=== PATIENT | female | born 1980 | race Caucasian/White ===

== ENCOUNTER 2017-07-11 11:52 | Emergency (ER) | payer MEDICARE, MEDICAID ==
[~2017-07-11] VITALS: Ht 165.1 cm; Wt 122.2 kg
[~2017-07-11 11:52] MED LIST: DIVA500T7 PO; LAMO200T2 PO; LIT300C PO; LORA-269 PO; ONDA4TAB12 PO; QUET400T12 PO; ZOLP10TA PO
[2017-07-11 13:50] LABS: CLARITY,URINE SLIGHTLY CLOUDY (Clear); COLOR,URINE YELLOW (Yellow); GLUCOSE, URINE NEGATIVE (Neg); KETONES,URINE NEGATIVE (Neg); LEUKOCYTE ESTERASE ,URINE NEGATIVE (Neg); NITRITES, URINE NEGATIVE (Neg); OCCULT BLOOD,URINE NEGATIVE (Neg); PH,URINE 7.5 (4.8-8.0); PROTEIN,URINE 30 mg/dl (Neg); UA COLLECTION TYPE NON-SPECIFIED; UROBILINOGEN,URINE 0.2 E.U/dL (0.2-1.0)
[2017-07-11 13:52] LABS: URINE HCG NEGATIVE (NEG)
[2017-07-11 13:59] LABS: BACTERIA,URINE 2+ /HPF (Neg); MUCUS STRANDS MODERATE /LPF (Neg); SQUAMOUS EPITHELIAL CELL,UR MANY /LPF (FEW)
[2017-07-11 14:00] LABS: RBC,URINE 0-2 /HPF (0-2); RENAL CELLS, URINE FEW /HPF; TRANSITIONAL EPI CELLS,URINE FEW /HPF; WBC,URINE 0-4 /HPF (0-4)
[2017-07-11 15:02] VITALS: BP 135/65
== END 2017-07-11 15:04 | disposition home or self-care (01) ==
LOC: ER 11:54
DX: J06.9 Acute upper respiratory infection, unspecified (principal); G89.29 Other chronic pain; F41.9 Anxiety disorder, unspecified; F32.9 Major depressive disorder, single episode, unspecified; F20.9 Schizophrenia, unspecified; Z91.018 Allergy to other foods; Z88.0 Allergy status to penicillin; Z91.041 Radiographic dye allergy status; Z88.8 Allergy status to other drugs, medicaments and biological substances; Z88.5 Allergy status to narcotic agent; Z79.899 Other long term (current) drug therapy; Z86.73 Personal history of transient ischemic attack (TIA), and cerebral infarction without residual deficits; Z87.442 Personal history of urinary calculi; Z98.62 Peripheral vascular angioplasty status; Z96.89 Presence of other specified functional implants
CPT/HCPCS: 81001; 81025; 99284

== ENCOUNTER 2017-09-23 18:43 | Emergency (ER) | payer MEDICARE, MEDICAID ==
[~2017-09-23] VITALS: Ht 170.2 cm; Wt 124.0 kg
[2017-09-23] MEDS ORDERED: LIDOcaine 5% patch TP STA (20:23)
[2017-09-23] MEDS ORDERED: orphenadrine citrate 60mg/2ml inj. IM ONE (20:25)
[2017-09-23] MEDS ORDERED: HYDROcodone/acetaminophen 10/325mg tab PO ONE (20:25)
[2017-09-23] MEDS ORDERED: ORPH100T2 PO (20:30)
[2017-09-23] MEDS ORDERED: DICL100G15 TOP (20:30)
[2017-09-23] MEDS ORDERED: LIDO700A32 TOP (20:30)
[2017-09-23 21:07] VITALS: BP 128/94
== END 2017-09-23 21:09 | disposition home or self-care (01) ==
LOC: ER 18:43
DX: M25.551 Pain in right hip (principal); M54.31 Sciatica, right side; G89.4 Chronic pain syndrome; Z56.0 Unemployment, unspecified; Z88.0 Allergy status to penicillin; Z79.899 Other long term (current) drug therapy
CPT/HCPCS: 73502; 96372; 99284; J2360

== ENCOUNTER 2017-10-13 16:50 | Emergency (ER) | payer MEDICARE, MEDICAID ==
[~2017-10-13] VITALS: Ht 170.2 cm; Wt 125.0 kg
[~2017-10-13 16:50] MED LIST changes: +DICL100G15 TOP; +LIDO700A32 TOP; +ORPH100T2 PO
[2017-10-13 17:11] VITALS: BP 147/80
== END 2017-10-13 19:11 | disposition home or self-care (01) ==
LOC: ER 16:51
DX: M25.552 Pain in left hip (principal); G89.29 Other chronic pain; Z86.73 Personal history of transient ischemic attack (TIA), and cerebral infarction without residual deficits; Z95.0 Presence of cardiac pacemaker; Z56.0 Unemployment, unspecified; Z88.0 Allergy status to penicillin; Z88.8 Allergy status to other drugs, medicaments and biological substances; Z79.899 Other long term (current) drug therapy
CPT/HCPCS: 73502; 99284

== ENCOUNTER 2017-10-15 00:14 | Emergency (ER) | payer MEDICARE, MEDICAID ==
[~2017-10-15] VITALS: Ht 170.2 cm; Wt 124.5 kg
[2017-10-15] MEDS ORDERED: normal saline 1000ml 1,000 ML IV ONE (00:19)
[2017-10-15] MEDS ORDERED: pantoprazole 40 MG vial IV ONE (00:20)
[2017-10-15] MEDS ORDERED: normal saline 1000ML IV soln IVB ONE (00:20)
[2017-10-15] MEDS ORDERED: famotidine/PF 10 mg/ml inj IV ONE (00:20)
[2017-10-15] MEDS ORDERED: glucagon, human recombinant 1mg kit IV ONE (00:20)
[2017-10-15] MEDS ORDERED: FAMO20TA44 PO (00:36)
[2017-10-15] MEDS ORDERED: OMEP20CA10 PO (00:36)
[2017-10-15] MEDS ORDERED: fentaNYL/PF 50MCG/1 ML 2ML syringe ONE (01:00)
[2017-10-15] MEDS ORDERED: LIDOcaine Viscous 15ml cup ONE (01:01)
[2017-10-15 01:05] VITALS: BP 129/75
[2017-10-15 01:26] VITALS: BP 129/79
[2017-10-15 01:36] VITALS: BP 124/73
[2017-10-15 01:46] VITALS: BP 120/71
[2017-10-15 01:56] VITALS: BP 126/79
[2017-10-15 03:24] VITALS: BP 109/61
== END 2017-10-15 03:27 | disposition home or self-care (01) ==
LOC: ER 00:14
DX: R10.13 Epigastric pain (principal); G89.29 Other chronic pain; K44.9 Diaphragmatic hernia without obstruction or gangrene; Z86.73 Personal history of transient ischemic attack (TIA), and cerebral infarction without residual deficits; Z88.6 Allergy status to analgesic agent; Z95.0 Presence of cardiac pacemaker; Z88.0 Allergy status to penicillin; Z88.5 Allergy status to narcotic agent
CPT/HCPCS: 43247; 43450; 96361; 96374; 96375; 99152; 99285; C9113; J1610; J3010; J7030; 43235; A4620; G0500

== ENCOUNTER 2017-11-04 18:18 | Emergency (ER) | payer MEDICARE, MEDICAID ==
[~2017-11-04] VITALS: Ht 170.2 cm; Wt 124.0 kg
[~2017-11-04 18:18] MED LIST changes: +FAMO20TA44 PO
[2017-11-04 19:57] VITALS: BP 120/90
[2017-11-04] MEDS ORDERED: ondansetron 4mg rapidly disintigrating tab PO ONE (21:20)
[2017-11-04] MEDS ORDERED: ONDA4TAB9 PO (21:29)
[2017-11-04] MEDS ORDERED: acetaminophen 325mg tablet PO ONE (21:45)
== END 2017-11-04 22:46 | disposition home or self-care (01) ==
LOC: ER 18:18
DX: G43.909 Migraine, unspecified, not intractable, without status migrainosus (principal); E86.0 Dehydration; G89.29 Other chronic pain; Z86.73 Personal history of transient ischemic attack (TIA), and cerebral infarction without residual deficits; Z98.61 Coronary angioplasty status; Z56.0 Unemployment, unspecified; Z88.0 Allergy status to penicillin; Z79.899 Other long term (current) drug therapy; Z88.8 Allergy status to other drugs, medicaments and biological substances; Z91.02 Food additives allergy status
CPT/HCPCS: 99282

== ENCOUNTER 2017-11-30 14:00 | Emergency (ER) | payer MEDICARE, MEDICAID ==
[~2017-11-30] VITALS: Ht 167.6 cm; Wt 124.0 kg
[~2017-11-30 14:00] MED LIST changes: +ONDA4TAB9 PO
[2017-11-30] MEDS ORDERED: morphine 4 MG/ML inj SYRINge IV ONE (14:25)
[2017-11-30] MEDS ORDERED: HYDROcodone/acetaminophen 10/325mg tab PO ONE (14:25)
[2017-11-30] MEDS ORDERED: HYDR-565 PO (16:07)
[2017-11-30 16:15] VITALS: BP 119/72
== END 2017-11-30 17:28 | disposition home or self-care (01) ==
LOC: ER 14:00
DX: S79.811A Other specified injuries of right hip, initial encounter (principal); M25.551 Pain in right hip; G89.29 Other chronic pain; F41.9 Anxiety disorder, unspecified; F32.9 Major depressive disorder, single episode, unspecified; F20.9 Schizophrenia, unspecified; Z88.0 Allergy status to penicillin; Z88.8 Allergy status to other drugs, medicaments and biological substances; Z91.041 Radiographic dye allergy status; Z91.018 Allergy to other foods; Z88.5 Allergy status to narcotic agent; Z88.6 Allergy status to analgesic agent; Z79.899 Other long term (current) drug therapy; Z87.442 Personal history of urinary calculi; Z86.73 Personal history of transient ischemic attack (TIA), and cerebral infarction without residual deficits; Z98.61 Coronary angioplasty status; X58.XXXA Exposure to other specified factors, initial encounter; Y93.89 Activity, other specified; Y92.89 Other specified places as the place of occurrence of the external cause; Y99.8 Other external cause status
CPT/HCPCS: 73700; 96374; 99284; J2270

== ENCOUNTER 2017-12-22 19:07 | Emergency (ER) | payer MEDICARE, MEDICAID ==
[~2017-12-22] VITALS: Ht 167.6 cm; Wt 119.5 kg
[~2017-12-22 19:07] MED LIST changes: -ONDA4TAB9 PO
[2017-12-22 19:13] VITALS: BP 117/80
== END 2017-12-22 20:44 | disposition home or self-care (01) ==
LOC: ER 19:08
DX: B34.9 Viral infection, unspecified (principal); I49.9 Cardiac arrhythmia, unspecified; G89.29 Other chronic pain; Z95.0 Presence of cardiac pacemaker; Z95.1 Presence of aortocoronary bypass graft; Z56.0 Unemployment, unspecified; Z88.8 Allergy status to other drugs, medicaments and biological substances; Z91.018 Allergy to other foods; Z79.899 Other long term (current) drug therapy; Z86.73 Personal history of transient ischemic attack (TIA), and cerebral infarction without residual deficits
CPT/HCPCS: 93005; 99284

== ENCOUNTER 2018-01-04 23:25 | Emergency (ER) | payer MEDICARE, MEDICAID ==
[~2018-01-04] VITALS: Ht 170.2 cm; Wt 124.1 kg
[2018-01-05 00:44] LABS: URINE HCG NEGATIVE (NEG)
[2018-01-05 00:53] LABS: ALANINE AMINOTRANSFERASE 23 U/L (12-78); ALBUMIN 4.1 G/DL (3.4-5.0); ALBUMIN/GLOBULIN RATIO 1.2 (1.1-1.5); ALKALINE PHOSPHATASE 72 IU/L (46-116); ANION GAP 11 (8-16); ASPARTATE AMINO TRANSFERASE 14 U/L (10-37); BILIRUBIN,TOTAL 0.2 MG/DL (0.1-1.0); BLOOD UREA NITROGEN 12 MG/DL (7-18); BUN/CREATININE RATIO 9.9 (6.6-38.0); CALCIUM 9.7 MG/DL (8.5-10.1); CHLORIDE 101 MMOL/L (99-107); CREATININE 1.21 MG/DL (0.40-0.90); GLUCOSE 84 MG/DL (70-104); LIPASE 127 U/L (73-393); POTASSIUM 3.8 MMOL/L (3.5-5.1); SODIUM 139 MMOL/L (135-145); TOTAL CARBON DIOXIDE 27.5 MMOL/L (24-32); TOTAL PROTEIN 7.5 G/DL (6.4-8.2); eGFR 51 ML/MIN
[2018-01-05 01:00] LABS: CLARITY,URINE SLIGHTLY CLOUDY (Clear); COLOR,URINE YELLOW (Yellow); GLUCOSE, URINE NEGATIVE (Neg); KETONES,URINE NEGATIVE (Neg); LEUKOCYTE ESTERASE ,URINE NEGATIVE (Neg); NITRITES, URINE NEGATIVE (Neg); OCCULT BLOOD,URINE NEGATIVE (Neg); PROTEIN,URINE TRACE mg/dl (Neg); UROBILINOGEN,URINE 0.2 E.U/dL (0.2-1.0)
[2018-01-05 01:07] LABS: UA COLLECTION TYPE CLN CATCH MIDSTREAM
[2018-01-05 01:09] LABS: BASOPHILS % (AUTO) 0.5 % (0-1); EOSINOPHILS # (AUTO) 0.2 X10'3 (0-0.9); EOSINOPHILS % (AUTO) 3.1 % (0-6); HEMATOCRIT 45.5 % (35.0-45.0); HEMOGLOBIN 15.2 g/dl (12.0-16.0); LYMPHOCYTES # (AUTO) 2.9 X10'3 (1.1-4.8); LYMPHOCYTES % (AUTO) 36.7 % (21-51); MEAN CORPUSCULAR HEMOGLOBIN 29.3 PG (27.0-31.0); MEAN CORPUSCULAR HGB CONC 33.4 % (33.0-36.5); MEAN CORPUSCULAR VOLUME 87.7 FL (78-98); MEAN PLATELET VOLUME 9.1 FL (7.4-10.4); MONOCYTES # (AUTO) 0.7 X10'3 (0-0.9); MONOCYTES % (AUTO) 8.5 % (2-12); NEUTROPHILS % (AUTO) 51.2 % (42-75); PLATELET COUNT 280 X10'3 (140-440); RED CELL DISTRIBUTION WIDTH 11.5 % (11.5-14.5); WHITE BLOOD COUNT 7.9 X10'3 (4.5-11.0)
[2018-01-05 01:11] LABS: BACTERIA,URINE 2+ /HPF (Neg); MUCUS STRANDS MANY /LPF (Neg); RBC,URINE 0-2 /HPF (0-2); SQUAMOUS EPITHELIAL CELL,UR MODERATE /LPF (FEW); WBC,URINE 0-4 /HPF (0-4)
[2018-01-05 01:42] VITALS: BP 128/67
[2018-01-05 07:26] LABS: OCCULT BLOOD STOOL NEGATIVE (Neg)
== END 2018-01-05 01:44 | disposition home or self-care (01) ==
LOC: ER 23:25
DX: K92.1 Melena (principal); I49.9 Cardiac arrhythmia, unspecified; G89.29 Other chronic pain; Z87.442 Personal history of urinary calculi; Z86.73 Personal history of transient ischemic attack (TIA), and cerebral infarction without residual deficits; Z98.61 Coronary angioplasty status; Z95.0 Presence of cardiac pacemaker; Z98.890 Other specified postprocedural states; Z56.0 Unemployment, unspecified; Z88.0 Allergy status to penicillin; Z88.8 Allergy status to other drugs, medicaments and biological substances; Z91.018 Allergy to other foods; Z79.899 Other long term (current) drug therapy
CPT/HCPCS: 36415; 80053; 81001; 81025; 82272; 83690; 85025; 99284

== ENCOUNTER 2018-02-01 09:14 | Emergency (ER) | payer MEDICARE, MEDICAID ==
[~2018-02-01] VITALS: Ht 167.6 cm; Wt 124.1 kg
[2018-02-01] MEDS ORDERED: normal saline 1000ML IV soln IVB ONE (09:25)
[2018-02-01] MEDS ORDERED: ondansetron/PF 4mg/2ml inj IV ONE (09:25)
[2018-02-01 10:09] LABS: BASOPHILS % (AUTO) 0.5 % (0-1); EOSINOPHILS # (AUTO) 0.2 X10'3 (0-0.9); EOSINOPHILS % (AUTO) 3.6 % (0-6); HEMATOCRIT 44.5 % (35.0-45.0); HEMOGLOBIN 15.3 g/dl (12.0-16.0); LYMPHOCYTES # (AUTO) 2.3 X10'3 (1.1-4.8); LYMPHOCYTES % (AUTO) 34.6 % (21-51); MEAN CORPUSCULAR HEMOGLOBIN 30.1 PG (27.0-31.0); MEAN CORPUSCULAR HGB CONC 34.3 % (33.0-36.5); MEAN CORPUSCULAR VOLUME 87.8 FL (78-98); MONOCYTES # (AUTO) 0.6 X10'3 (0-0.9); MONOCYTES % (AUTO) 9.6 % (2-12); NEUTROPHILS # (AUTO) 3.4 X10'3 (1.8-7.7); NEUTROPHILS % (AUTO) 51.7 % (42-75); PLATELET COUNT 259 X10'3 (140-440); RED BLOOD COUNT 5.07 X10'6 (4.20-5.60); RED CELL DISTRIBUTION WIDTH 12.3 % (11.5-14.5); WHITE BLOOD COUNT 6.6 X10'3 (4.5-11.0)
[2018-02-01 10:24] LABS: ALANINE AMINOTRANSFERASE 23 U/L (12-78); ALBUMIN 3.9 G/DL (3.4-5.0); ALBUMIN/GLOBULIN RATIO 1.1 (1.1-1.5); ALKALINE PHOSPHATASE 60 IU/L (46-116); ANION GAP 11 (8-16); ASPARTATE AMINO TRANSFERASE 4 U/L (10-37); BILIRUBIN,TOTAL 0.2 MG/DL (0.1-1.0); BLOOD UREA NITROGEN 16 MG/DL (7-18); CHLORIDE 104 MMOL/L (99-107); CREATININE 1.07 MG/DL (0.40-0.90); GLUCOSE 101 MG/DL (70-104); LIPASE 140 U/L (73-393); POTASSIUM 4.1 MMOL/L (3.5-5.1); SODIUM 139 MMOL/L (135-145); TOTAL CARBON DIOXIDE 24.1 MMOL/L (24-32); TOTAL PROTEIN 7.4 G/DL (6.4-8.2); eGFR 58 ML/MIN
[2018-02-01] MEDS ORDERED: morphine 4 MG/ML inj SYRINge IV ONE ×2 (10:25→11:25)
[2018-02-01 10:42] LABS: URINE HCG NEGATIVE (NEG)
[2018-02-01 10:43] LABS: CLARITY,URINE CLEAR (Clear); COLOR,URINE YELLOW (Yellow); GLUCOSE, URINE NEGATIVE (Neg); KETONES,URINE NEGATIVE (Neg); LEUKOCYTE ESTERASE ,URINE NEGATIVE (Neg); NITRITES, URINE NEGATIVE (Neg); OCCULT BLOOD,URINE TRACE-INTACT (Neg); PROTEIN,URINE NEGATIVE (Neg); UROBILINOGEN,URINE 0.2 E.U/dL (0.2-1.0)
[2018-02-01 10:44] LABS: UA COLLECTION TYPE NON-SPECIFIED
[2018-02-01 10:48] LABS: BACTERIA,URINE 4+ /HPF (Neg); MUCUS STRANDS MODERATE /LPF (Neg); SQUAMOUS EPITHELIAL CELL,UR MANY /LPF (FEW); WBC,URINE 0-4 /HPF (0-4)
[2018-02-01 10:49] LABS: RBC,URINE 0-2 /HPF (0-2)
[2018-02-01] MEDS ORDERED: proMETHazine 25mg tablet PO ONE (11:25)
[2018-02-01 12:10] VITALS: BP 107/75
== END 2018-02-01 12:12 | disposition home or self-care (01) ==
LOC: ER 09:14
DX: N80.9 Endometriosis, unspecified (principal); I49.9 Cardiac arrhythmia, unspecified; G89.29 Other chronic pain; Z87.442 Personal history of urinary calculi; Z86.73 Personal history of transient ischemic attack (TIA), and cerebral infarction without residual deficits; Z98.61 Coronary angioplasty status; Z95.0 Presence of cardiac pacemaker; Z98.890 Other specified postprocedural states; Z56.0 Unemployment, unspecified; Z88.0 Allergy status to penicillin; Z88.5 Allergy status to narcotic agent; Z88.8 Allergy status to other drugs, medicaments and biological substances; Z91.018 Allergy to other foods; Z79.899 Other long term (current) drug therapy
CPT/HCPCS: 36415; 80053; 81001; 81025; 83690; 85025; 96374; 96375; 96376; 99284; J2270; J2405; J7030; Q0169

== ENCOUNTER 2018-03-24 15:53 | Emergency (ER) | payer MEDICARE, MEDICAID ==
[~2018-03-24] VITALS: Ht 170.2 cm; Wt 124.1 kg
[~2018-03-24 15:53] MED LIST changes: +DIVA-76 PO; -DIVA500T7 PO; +HYDR-565 PO; +ONDA4TAB9 PO
[2018-03-24] MEDS ORDERED: dexamethasone sod phosphate 10mg/ml inj IV STA (16:06)
[2018-03-24] MEDS ORDERED: epiNEPHrine 1 mg/ml inj SQ PRN (16:10)
[2018-03-24] MEDS ORDERED: diphenhydrAMINE 50 mg/ml inj IV ONE (16:10)
[2018-03-24] MEDS ORDERED: famotidine/PF 10 mg/ml inj IV ONE (16:10)
[2018-03-24] MEDS ORDERED: methylPREDNISolone sod succ 125mg/2ml vial IV ONE (16:30)
[2018-03-24 16:36] VITALS: BP 141/80
== END 2018-03-24 17:42 | disposition home or self-care (01) ==
LOC: ER 15:54
DX: T78.40XA Allergy, unspecified, initial encounter (principal); G89.29 Other chronic pain; E66.01 Morbid (severe) obesity due to excess calories; R03.0 Elevated blood-pressure reading, without diagnosis of hypertension; Z86.73 Personal history of transient ischemic attack (TIA), and cerebral infarction without residual deficits; Z86.69 Personal history of other diseases of the nervous system and sense organs; Z98.61 Coronary angioplasty status; Z95.0 Presence of cardiac pacemaker; Z98.890 Other specified postprocedural states; Z56.0 Unemployment, unspecified; Z88.6 Allergy status to analgesic agent; Z88.0 Allergy status to penicillin; Z88.8 Allergy status to other drugs, medicaments and biological substances; Z88.5 Allergy status to narcotic agent; Z91.041 Radiographic dye allergy status; Z91.018 Allergy to other foods; Z79.899 Other long term (current) drug therapy; Z68.41 Body mass index [BMI] 40.0-44.9, adult; X58.XXXA Exposure to other specified factors, initial encounter
CPT/HCPCS: 96374; 96375; 99284; J1200; J2930; J3490

== ENCOUNTER 2018-03-28 21:42 | Emergency (ER) | payer MEDICARE, MEDICAID ==
[~2018-03-28] VITALS: Ht 170.2 cm; Wt 124.1 kg
[2018-03-28 22:08] VITALS: BP 137/91
[2018-03-28] MEDS ORDERED: BACDS PO (23:09)
== END 2018-03-28 23:19 | disposition home or self-care (01) ==
LOC: ER 21:43
DX: T81.89XA Other complications of procedures, not elsewhere classified, initial encounter (principal); Z76.0 Encounter for issue of repeat prescription; G89.29 Other chronic pain; Z86.73 Personal history of transient ischemic attack (TIA), and cerebral infarction without residual deficits; Z95.0 Presence of cardiac pacemaker; Z95.1 Presence of aortocoronary bypass graft; Z56.0 Unemployment, unspecified; Z88.6 Allergy status to analgesic agent; Z88.1 Allergy status to other antibiotic agents; Z91.041 Radiographic dye allergy status; Z88.0 Allergy status to penicillin; Z88.8 Allergy status to other drugs, medicaments and biological substances; Z91.018 Allergy to other foods
CPT/HCPCS: 99284

== ENCOUNTER 2018-03-29 04:42 | Emergency (ER) | payer MEDICARE, MEDICAID ==
[~2018-03-29] VITALS: Ht 170.2 cm; Wt 124.1 kg
[~2018-03-29 04:42] MED LIST changes: +BACDS PO
[2018-03-29 05:42] VITALS: BP 116/74
[2018-04-02] MEDS ORDERED: CLON2TAB12 PO (21:39)
== END 2018-03-29 05:46 | disposition home or self-care (01) ==
LOC: ER 04:43
DX: R13.10 Dysphagia, unspecified (principal); T42.6X5A Adverse effect of other antiepileptic and sedative-hypnotic drugs, initial encounter; R22.1 Localized swelling, mass and lump, neck; G89.29 Other chronic pain; Z86.73 Personal history of transient ischemic attack (TIA), and cerebral infarction without residual deficits; Z95.5 Presence of coronary angioplasty implant and graft; Z95.0 Presence of cardiac pacemaker; Z98.890 Other specified postprocedural states; Z56.0 Unemployment, unspecified; Z87.442 Personal history of urinary calculi; Z91.018 Allergy to other foods; Z88.0 Allergy status to penicillin; Z88.6 Allergy status to analgesic agent; Z88.8 Allergy status to other drugs, medicaments and biological substances; Z91.041 Radiographic dye allergy status; Z79.899 Other long term (current) drug therapy; Y92.9 Unspecified place or not applicable
CPT/HCPCS: 99283

== ENCOUNTER 2018-04-13 17:40 | Emergency (ER) | payer MEDICARE, MEDICAID ==
[~2018-04-13] VITALS: Ht 170.2 cm; Wt 124.0 kg
[~2018-04-13 17:40] MED LIST changes: -BACDS PO; +CLON2TAB12 PO; -HYDR-565 PO; -ONDA4TAB9 PO
[2018-04-13 18:37] LABS: BASOPHILS % (AUTO) 0.3 % (0-1); EOSINOPHILS # (AUTO) 0.1 X10'3 (0-0.9); EOSINOPHILS % (AUTO) 1.2 % (0-6); HEMATOCRIT 45.1 % (35.0-45.0); HEMOGLOBIN 15.4 g/dl (12.0-16.0); LYMPHOCYTES # (AUTO) 1.7 X10'3 (1.1-4.8); LYMPHOCYTES % (AUTO) 21.1 % (21-51); MEAN CORPUSCULAR HEMOGLOBIN 29.8 PG (27.0-31.0); MEAN CORPUSCULAR HGB CONC 34.1 % (33.0-36.5); MEAN CORPUSCULAR VOLUME 87.5 FL (78-98); MEAN PLATELET VOLUME 8.8 FL (7.4-10.4); MONOCYTES # (AUTO) 0.4 X10'3 (0-0.9); NEUTROPHILS # (AUTO) 5.9 X10'3 (1.8-7.7); NEUTROPHILS % (AUTO) 72.4 % (42-75); PLATELET COUNT 271 X10'3 (140-440); RED BLOOD COUNT 5.16 X10'6 (4.20-5.60); RED CELL DISTRIBUTION WIDTH 12.7 % (11.5-14.5); WHITE BLOOD COUNT 8.1 X10'3 (4.5-11.0)
[2018-04-13 19:01] LABS: ALANINE AMINOTRANSFERASE 30 U/L (12-78); ALBUMIN 3.9 G/DL (3.4-5.0); ALBUMIN/GLOBULIN RATIO 1.1 (1.1-1.5); ALKALINE PHOSPHATASE 72 IU/L (46-116); ANION GAP 12 (8-16); ASPARTATE AMINO TRANSFERASE 14 U/L (10-37); BILIRUBIN,TOTAL 0.2 MG/DL (0.1-1.0); BLOOD UREA NITROGEN 12 MG/DL (7-18); CALCIUM 9.4 MG/DL (8.5-10.1); CHLORIDE 103 MMOL/L (99-107); GLUCOSE 92 MG/DL (70-104); SODIUM 140 MMOL/L (135-145); TOTAL CARBON DIOXIDE 25.1 MMOL/L (24-32); TOTAL PROTEIN 7.5 G/DL (6.4-8.2); eGFR 63 ML/MIN
[2018-04-13 19:10] LABS: ETHANOL < 0.010 GM/DL (0.0-0.010)
[2018-04-13 19:11] LABS: URINE HCG NEGATIVE (NEG)
[2018-04-13 19:16] LABS: CLARITY,URINE CLEAR (Clear); COLOR,URINE YELLOW (Yellow); GLUCOSE, URINE NEGATIVE (Neg); KETONES,URINE NEGATIVE (Neg); LEUKOCYTE ESTERASE ,URINE NEGATIVE (Neg); NITRITES, URINE NEGATIVE (Neg); OCCULT BLOOD,URINE TRACE-INTACT (Neg); PH,URINE 5.5 (4.8-8.0); PROTEIN,URINE NEGATIVE (Neg); UROBILINOGEN,URINE 0.2 E.U/dL (0.2-1.0)
[2018-04-13 19:20] LABS: URINE AMPHETAMINE SCREEN NEGATIVE (Neg); URINE BARBITUATE SCREEN NEGATIVE (Neg); URINE BENZODIAZEPINES SCREEN NEGATIVE (Neg); URINE CANNABINOID SCREEN NEGATIVE (Neg); URINE COCAINE SCREEN NEGATIVE (Neg); URINE METHADONE SCREEN NEGATIVE (Neg); URINE OPIATE SCREEN NEGATIVE (Neg); URINE PHENCYCLIDINE SCREEN NEGATIVE (Neg)
[2018-04-13 19:22] LABS: UA COLLECTION TYPE CLN CATCH MIDSTREAM
[2018-04-13 19:23] LABS: BACTERIA,URINE FEW /HPF (Neg); RBC,URINE 0-2 /HPF (0-2); SQUAMOUS EPITHELIAL CELL,UR FEW /LPF (FEW); WBC,URINE 0-4 /HPF (0-4)
[2018-04-13] MEDS ORDERED: HYDROcodone/acetaminophen 10/325mg tab PO ONE (20:45)
[2018-04-14] MEDS ORDERED: quetiapine 100mg tablet PO STA ×3 (02:28→02:46)
[2018-04-14] MEDS ORDERED: QUEtiapine 25mg tablet PO STA (02:37)
[2018-04-14] MEDS ORDERED: HYDROcodone/acetaminophen 10/325mg tab PO ONE (08:20)
[2018-04-14 08:58] VITALS: BP 126/79
[2018-04-14] MEDS ORDERED: LORazepam 1 MG tablet PO PRN (11:30)
[2018-04-14] MEDS ORDERED: zolpidem 5mg tablet PO PRN (11:35)
[2018-04-14] MEDS ORDERED: divalproex sodium 500mg tablet.DR PO ONE (12:00)
[2018-04-14] MEDS ORDERED: HYDR-4353 PO (12:02)
[2018-04-14] MEDS ORDERED: HYDROcodone/acetaminophen 10/325mg tab PO PRN (12:15)
[2018-04-14] MEDS ORDERED: lamoTRIgine 100mg tablet PO SCH (20:00)
[2018-04-14] MEDS ORDERED: divalproex sodium 500mg tablet.DR PO SCH (20:00)
[2018-04-14] MEDS ORDERED: QUEtiapine 25mg tablet PO SCH (21:00)
[2018-04-14] MEDS ORDERED: quetiapine 100mg tablet PO SCH ×2 (21:00)
[2018-04-14] MEDS ORDERED: lithium carbonate 150mg capsule PO SCH (21:00)
[2018-04-14] MEDS ORDERED: HYDR-3972 PO (21:05)
[2018-04-14] MEDS ORDERED: ZOLP5TAB2 PO (21:15)
[2018-04-15] MEDS ORDERED: lithium carbonate 150mg capsule PO SCH (08:00)
== END 2018-04-14 19:15 | disposition home or self-care (01) ==
LOC: ER 17:41
DX: F29 Unspecified psychosis not due to a substance or known physiological condition (principal); F20.9 Schizophrenia, unspecified; F32.9 Major depressive disorder, single episode, unspecified; F41.9 Anxiety disorder, unspecified; G89.29 Other chronic pain; Z86.73 Personal history of transient ischemic attack (TIA), and cerebral infarction without residual deficits; Z95.0 Presence of cardiac pacemaker; Z98.61 Coronary angioplasty status; Z91.018 Allergy to other foods; Z88.0 Allergy status to penicillin; Z88.1 Allergy status to other antibiotic agents; Z88.6 Allergy status to analgesic agent; Z88.5 Allergy status to narcotic agent; Z88.8 Allergy status to other drugs, medicaments and biological substances; Z79.899 Other long term (current) drug therapy
CPT/HCPCS: 36415; 80053; 80305; 80320; 81001; 81025; 84443; 85025; 99284

== ENCOUNTER 2018-04-14 16:45 | Inpatient (IN) | payer MEDICARE, MEDICAID ==
[~2018-04-14] VITALS: Ht 170.2 cm; Wt 124.0 kg
[~2018-04-14 16:45] MED LIST changes: +HYDR-4353 PO
[2018-04-14 20:00] VITALS: BP 133/74
[2018-04-14] MEDS ORDERED: HYDR-3972 PO (21:05)
[2018-04-14] MEDS ORDERED: ZOLP5TAB2 PO (21:15)
[2018-04-14] MEDS ORDERED: zolpidem 5mg tablet PO PRN ×2 (22:40→22:51)
[2018-04-14] MEDS: HYDROcodone/acetaminophen 10/325mg tab PO PRN (22:47)
[2018-04-15] MEDS ORDERED: QUETIAPINE 200 MG TAB.SR.24H PO ONE (00:20)
[2018-04-15] MEDS ORDERED: quetiapine 100mg tablet PO STA (00:46)
[2018-04-15] MEDS ORDERED: quetiapine 100mg tablet PO PRN (00:50)
[2018-04-15 06:04] LABS: CHOL/HDL RATIO 2.8 (0.00-4.99); CHOLESTEROL 217 MG/DL (0-200); HDL CHOLESTEROL 77 MG/DL (35-60); LDL CHOLESTEROL 124 MG/DL (50-100); TRIGLYCERIDES 144 MG/DL (20-135)
[2018-04-15] MEDS ORDERED: FAMOTIDINE 20 MG PO SCH (07:00)
[2018-04-15] MEDS: HYDROcodone/acetaminophen 10/325mg tab PO PRN ×2 (07:15→14:55)
[2018-04-15] MEDS: famotidine 20mg tablet PO SCH ×2 (07:30→19:00)
[2018-04-15 08:00] VITALS: BP 139/80
[2018-04-15] MEDS ORDERED: quetiapine 100mg tablet PO SCH ×3 (08:00→21:00)
[2018-04-15] MEDS: divalproex sodium 500mg tablet.DR PO SCH ×2 (08:41→20:56)
[2018-04-15] MEDS: lamoTRIgine 100mg tablet PO SCH ×2 (08:42→21:12)
[2018-04-15 20:00] VITALS: BP 110/74
[2018-04-15] MEDS ORDERED: QUETIAPINE 200 MG TAB.SR.24H PO SCH (21:00)
[2018-04-15] MEDS: quetiapine 100mg tablet PO SCH (21:17)
[2018-04-16] MEDS: zolpidem 5mg tablet PO PRN (00:06)
[2018-04-16] MEDS: famotidine 20mg tablet PO SCH ×2 (07:42→16:55)
[2018-04-16] MEDS: lamoTRIgine 100mg tablet PO SCH ×2 (07:42→20:19)
[2018-04-16] MEDS: HYDROcodone/acetaminophen 10/325mg tab PO PRN ×2 (07:48→16:55)
[2018-04-16 08:00] VITALS: BP 138/86
[2018-04-16] MEDS: divalproex sodium 500mg tablet.DR PO SCH ×2 (08:28→20:19)
[2018-04-16 20:00] VITALS: BP 129/69
[2018-04-16] MEDS: quetiapine 100mg tablet PO SCH (20:19)
[2018-04-17] MEDS: lamoTRIgine 100mg tablet PO SCH ×2 (07:48→20:31)
[2018-04-17] MEDS: HYDROcodone/acetaminophen 10/325mg tab PO PRN ×3 (07:48→19:44)
[2018-04-17] MEDS: famotidine 20mg tablet PO SCH ×2 (07:48→17:36)
[2018-04-17] MEDS: divalproex sodium 500mg tablet.DR PO SCH ×2 (07:48→20:30)
[2018-04-17 08:00] VITALS: BP 131/72
[2018-04-17] MEDS: duloxetine 30mg CAPSULE.DR PO SCH (13:55)
[2018-04-17] MEDS: ondansetron 4mg rapidly disintigrating tab PO PRN (17:36)
[2018-04-17 20:00] VITALS: BP 131/72
[2018-04-17] MEDS ORDERED: QUETIAPINE 200 MG TAB.SR.24H PO SCH (21:45)
[2018-04-17] MEDS: quetiapine 100mg tablet PO SCH (22:10)
[2018-04-18] MEDS: famotidine 20mg tablet PO SCH ×2 (08:09→17:48)
[2018-04-18] MEDS: lamoTRIgine 100mg tablet PO SCH ×2 (08:10→21:57)
[2018-04-18] MEDS: duloxetine 30mg CAPSULE.DR PO SCH (08:10)
[2018-04-18] MEDS: divalproex sodium 500mg tablet.DR PO SCH ×2 (08:10→21:57)
[2018-04-18 08:11] VITALS: BP 128/75
[2018-04-18] MEDS: HYDROcodone/acetaminophen 10/325mg tab PO PRN ×3 (08:12→20:08)
[2018-04-18] MEDS: ondansetron 4mg rapidly disintigrating tab PO PRN (11:49)
[2018-04-18 20:00] VITALS: BP 127/70
[2018-04-18] MEDS: zolpidem 5mg tablet PO PRN (21:57)
[2018-04-18] MEDS: quetiapine 100mg tablet PO SCH (21:57)
[2018-04-19 07:29] VITALS: BP 128/64
[2018-04-19] MEDS: duloxetine 30mg CAPSULE.DR PO SCH (07:34)
[2018-04-19] MEDS: famotidine 20mg tablet PO SCH ×2 (07:34→16:33)
[2018-04-19] MEDS: HYDROcodone/acetaminophen 10/325mg tab PO PRN ×3 (07:36→20:09)
[2018-04-19] MEDS: divalproex sodium 500mg tablet.DR PO SCH ×2 (07:36→21:21)
[2018-04-19] MEDS: lamoTRIgine 100mg tablet PO SCH ×2 (07:36→21:21)
[2018-04-19] MEDS: ondansetron 4mg rapidly disintigrating tab PO PRN (08:57)
[2018-04-19] MEDS: docusate sod 250mg capsule PO SCH ×2 (16:33→21:21)
[2018-04-19 19:00] VITALS: BP 141/78
[2018-04-19] MEDS: buPROPion SR 150mg tablet PO SCH (21:22)
[2018-04-19] MEDS: quetiapine 100mg tablet PO SCH (21:22)
[2018-04-19] MEDS: zolpidem 5mg tablet PO PRN (21:23)
[2018-04-20] MEDS: famotidine 20mg tablet PO SCH ×2 (07:27→18:00)
[2018-04-20] MEDS: docusate sod 250mg capsule PO SCH ×2 (07:28→21:12)
[2018-04-20] MEDS: divalproex sodium 500mg tablet.DR PO SCH ×2 (07:28→21:13)
[2018-04-20] MEDS: buPROPion SR 150mg tablet PO SCH ×2 (07:28→19:32)
[2018-04-20] MEDS: lamoTRIgine 100mg tablet PO SCH ×2 (07:28→21:13)
[2018-04-20] MEDS: HYDROcodone/acetaminophen 10/325mg tab PO PRN ×3 (07:33→19:32)
[2018-04-20 08:04] VITALS: BP 136/89
[2018-04-20] MEDS: ondansetron 4mg rapidly disintigrating tab PO PRN (13:25)
[2018-04-20] MEDS ORDERED: bisacodyl 5mg tablet.DR PO PRN (14:25)
[2018-04-20 20:00] VITALS: BP 125/60
[2018-04-20] MEDS: quetiapine 100mg tablet PO SCH (21:13)
[2018-04-20] MEDS: zolpidem 5mg tablet PO PRN (22:04)
[2018-04-21] MEDS: HYDROcodone/acetaminophen 10/325mg tab PO PRN ×3 (04:46→18:55)
[2018-04-21] MEDS ORDERED: buproprion 150mg XL (24-hour) tablet PO SCH (07:30)
[2018-04-21 08:00] VITALS: BP 126/83
[2018-04-21] MEDS: divalproex sodium 500mg tablet.DR PO SCH ×2 (08:15→21:19)
[2018-04-21] MEDS: docusate sod 250mg capsule PO SCH ×2 (08:15→20:00)
[2018-04-21] MEDS: famotidine 20mg tablet PO SCH ×2 (08:15→17:39)
[2018-04-21] MEDS: lamoTRIgine 100mg tablet PO SCH ×2 (08:16→21:19)
[2018-04-21] MEDS: buPROPion SR 150mg tablet PO SCH ×2 (08:16→21:19)
[2018-04-21] MEDS: quetiapine 100mg tablet PO PRN (15:11)
[2018-04-21 20:00] VITALS: BP 134/75
[2018-04-21] MEDS: zolpidem 5mg tablet PO PRN (21:19)
[2018-04-21] MEDS: quetiapine 100mg tablet PO SCH (21:20)
[2018-04-22] MEDS: HYDROcodone/acetaminophen 10/325mg tab PO PRN ×5 (03:11→21:38)
[2018-04-22] MEDS: lamoTRIgine 100mg tablet PO SCH ×2 (07:56→20:45)
[2018-04-22] MEDS: divalproex sodium 500mg tablet.DR PO SCH ×2 (07:56→20:45)
[2018-04-22] MEDS: buPROPion SR 150mg tablet PO SCH ×2 (07:56→20:45)
[2018-04-22] MEDS: docusate sod 250mg capsule PO SCH ×2 (07:56→20:46)
[2018-04-22] MEDS: famotidine 20mg tablet PO SCH ×2 (07:56→20:48)
[2018-04-22 08:00] VITALS: BP 115/64
[2018-04-22 19:53] VITALS: BP 135/81
[2018-04-22] MEDS: quetiapine 100mg tablet PO SCH (20:45)
[2018-04-22] MEDS: zolpidem 5mg tablet PO PRN (21:39)
[2018-04-23] MEDS: HYDROcodone/acetaminophen 10/325mg tab PO PRN ×3 (05:02→19:49)
[2018-04-23 08:00] VITALS: BP 131/80
[2018-04-23] MEDS: divalproex sodium 500mg tablet.DR PO SCH ×2 (08:33→19:59)
[2018-04-23] MEDS: famotidine 20mg tablet PO SCH ×2 (08:33→17:33)
[2018-04-23] MEDS: lamoTRIgine 100mg tablet PO SCH ×2 (08:34→20:00)
[2018-04-23] MEDS: docusate sod 250mg capsule PO SCH ×2 (08:34→19:59)
[2018-04-23] MEDS: buPROPion SR 150mg tablet PO SCH (08:34)
[2018-04-23] MEDS ORDERED: buPROPion SR 150mg tablet PO ONE (13:45)
[2018-04-23 20:00] VITALS: BP 124/76
[2018-04-23] MEDS: zolpidem 5mg tablet PO PRN (20:47)
[2018-04-23] MEDS: quetiapine 100mg tablet PO SCH (20:47)
[2018-04-24] MEDS: HYDROcodone/acetaminophen 10/325mg tab PO PRN ×3 (03:15→16:59)
[2018-04-24] MEDS: famotidine 20mg tablet PO SCH ×2 (07:45→16:59)
[2018-04-24] MEDS: docusate sod 250mg capsule PO SCH ×2 (07:46→20:45)
[2018-04-24] MEDS: buPROPion SR 150mg tablet PO SCH ×2 (07:46→12:10)
[2018-04-24] MEDS: lamoTRIgine 100mg tablet PO SCH ×2 (07:46→20:45)
[2018-04-24] MEDS: divalproex sodium 500mg tablet.DR PO SCH ×2 (07:46→20:44)
[2018-04-24 07:56] VITALS: BP 108/50
[2018-04-24] MEDS: quetiapine 100mg tablet PO PRN (12:11)
[2018-04-24 19:44] VITALS: BP 131/68
[2018-04-24] MEDS: quetiapine 100mg tablet PO SCH (20:47)
[2018-04-24] MEDS: zolpidem 5mg tablet PO PRN (20:53)
[2018-04-25] MEDS: HYDROcodone/acetaminophen 10/325mg tab PO PRN ×3 (05:34→17:56)
[2018-04-25] MEDS: famotidine 20mg tablet PO SCH ×2 (07:27→17:38)
[2018-04-25] MEDS: divalproex sodium 500mg tablet.DR PO SCH ×2 (08:19→20:28)
[2018-04-25] MEDS: docusate sod 250mg capsule PO SCH ×2 (08:19→20:28)
[2018-04-25] MEDS: lamoTRIgine 100mg tablet PO SCH ×2 (08:19→20:27)
[2018-04-25] MEDS: buPROPion SR 150mg tablet PO SCH ×2 (08:19→12:14)
[2018-04-25 08:47] VITALS: BP 124/57
[2018-04-25 19:00] VITALS: BP 121/70
[2018-04-25] MEDS: quetiapine 100mg tablet PO SCH (20:27)
[2018-04-25] MEDS: zolpidem 5mg tablet PO PRN (20:28)
[2018-04-25] MEDS: QUEtiapine 25mg tablet PO SCH (20:28)
[2018-04-26] MEDS: HYDROcodone/acetaminophen 10/325mg tab PO PRN ×3 (02:39→13:54)
[2018-04-26] MEDS: famotidine 20mg tablet PO SCH ×2 (07:25→17:54)
[2018-04-26] MEDS: buPROPion SR 150mg tablet PO SCH ×2 (08:22→13:27)
[2018-04-26] MEDS: divalproex sodium 500mg tablet.DR PO SCH ×2 (08:22→20:02)
[2018-04-26] MEDS: docusate sod 250mg capsule PO SCH ×2 (08:22→20:04)
[2018-04-26] MEDS: lamoTRIgine 100mg tablet PO SCH ×2 (08:22→20:03)
[2018-04-26 08:28] VITALS: BP 104/54
[2018-04-26 19:00] VITALS: BP 129/64
[2018-04-26] MEDS ORDERED: HYDROcodone/acetaminophen 10/325mg tab PO ONE (20:00)
[2018-04-26] MEDS: QUEtiapine 25mg tablet PO SCH (20:03)
[2018-04-26] MEDS: quetiapine 100mg tablet PO SCH (20:04)
[2018-04-26] MEDS: zolpidem 5mg tablet PO PRN (21:04)
[2018-04-27] MEDS: HYDROcodone/acetaminophen 10/325mg tab PO PRN ×3 (05:20→17:36)
[2018-04-27] MEDS: divalproex sodium 500mg tablet.DR PO SCH ×2 (07:38→20:20)
[2018-04-27] MEDS: buPROPion SR 150mg tablet PO SCH ×2 (07:38→11:39)
[2018-04-27] MEDS: famotidine 20mg tablet PO SCH ×2 (07:38→17:35)
[2018-04-27] MEDS: lamoTRIgine 100mg tablet PO SCH ×2 (07:38→20:19)
[2018-04-27] MEDS: docusate sod 250mg capsule PO SCH ×2 (07:38→20:21)
[2018-04-27 08:00] VITALS: BP 100/73
[2018-04-27] MEDS: ondansetron 4mg rapidly disintigrating tab PO PRN (08:18)
[2018-04-27] MEDS: quetiapine 100mg tablet PO PRN (15:20)
[2018-04-27 19:00] VITALS: BP 132/68
[2018-04-27] MEDS: QUEtiapine 25mg tablet PO SCH (20:20)
[2018-04-27] MEDS: zolpidem 5mg tablet PO PRN (20:21)
[2018-04-27] MEDS: quetiapine 100mg tablet PO SCH (20:21)
[2018-04-28] MEDS: HYDROcodone/acetaminophen 10/325mg tab PO PRN ×3 (06:00→19:28)
[2018-04-28] MEDS: divalproex sodium 500mg tablet.DR PO SCH ×2 (07:36→22:06)
[2018-04-28] MEDS: famotidine 20mg tablet PO SCH ×2 (07:36→17:31)
[2018-04-28] MEDS: buPROPion SR 150mg tablet PO SCH ×2 (07:36→12:25)
[2018-04-28] MEDS: lamoTRIgine 100mg tablet PO SCH ×2 (07:36→22:07)
[2018-04-28] MEDS: docusate sod 250mg capsule PO SCH ×2 (07:36→22:07)
[2018-04-28 08:00] VITALS: BP 136/66
[2018-04-28 19:34] VITALS: BP 137/78
[2018-04-28] MEDS: quetiapine 100mg tablet PO SCH (22:06)
[2018-04-28] MEDS: QUEtiapine 25mg tablet PO SCH (22:06)
[2018-04-28] MEDS: zolpidem 5mg tablet PO PRN (22:07)
[2018-04-29] MEDS: HYDROcodone/acetaminophen 10/325mg tab PO PRN ×2 (05:29→11:07)
[2018-04-29] MEDS: docusate sod 250mg capsule PO SCH (07:44)
[2018-04-29] MEDS: lamoTRIgine 100mg tablet PO SCH (07:44)
[2018-04-29] MEDS: buPROPion SR 150mg tablet PO SCH ×2 (07:44→13:02)
[2018-04-29] MEDS: divalproex sodium 500mg tablet.DR PO SCH (07:44)
[2018-04-29] MEDS: famotidine 20mg tablet PO SCH (07:44)
[2018-04-29 08:00] VITALS: BP 131/70
[2018-04-29] MEDS ORDERED: BUPR-84 PO (12:00)
[2018-04-29] MEDS ORDERED: DIVA500T2 PO (12:00)
[2018-04-29] MEDS ORDERED: ZOLP10TA PO (12:00)
[2018-04-29] MEDS ORDERED: QUET25TA34 PO (12:00)
[2018-04-29] MEDS ORDERED: DOCU250C96 PO (12:00)
[2018-04-29] MEDS ORDERED: CARI-1 PO (12:00)
[2018-04-29] MEDS ORDERED: FAMO20TA8 PO (12:00)
[2018-04-29] MEDS ORDERED: QUET300T19 PO (12:00)
[2018-04-29] MEDS ORDERED: LAMO100T89 PO (12:00)
[2018-04-29] MEDS ORDERED: HYDR-3972 PO (12:00)
== END 2018-04-29 15:15 | disposition home or self-care (01) | DRG 885 ==
LOC: ADULT MH 16:45
PROVIDERS: ADMIT Psychiatry & Neurology Psychiatry; ATTEND Psychiatry & Neurology Psychiatry
DX: F25.1 Schizoaffective disorder, depressive type (principal); Z68.41 Body mass index [BMI] 40.0-44.9, adult; G40.909 Epilepsy, unspecified, not intractable, without status epilepticus; E66.9 Obesity, unspecified; I10 Essential (primary) hypertension; E11.9 Type 2 diabetes mellitus without complications; M19.90 Unspecified osteoarthritis, unspecified site; Z60.2 Problems related to living alone; F41.8 Other specified anxiety disorders; F43.10 Post-traumatic stress disorder, unspecified; K59.00 Constipation, unspecified; E78.5 Hyperlipidemia, unspecified; Z91.19 Patient's noncompliance with other medical treatment and regimen; Z23 Encounter for immunization; Z95.0 Presence of cardiac pacemaker; Z91.041 Radiographic dye allergy status; Z79.899 Other long term (current) drug therapy; Z88.0 Allergy status to penicillin; Z88.8 Allergy status to other drugs, medicaments and biological substances; Z91.018 Allergy to other foods; Z91.048 Other nonmedicinal substance allergy status; Z86.73 Personal history of transient ischemic attack (TIA), and cerebral infarction without residual deficits; R11.0 Nausea; T43.295A Adverse effect of other antidepressants, initial encounter; Y92.238 Other place in hospital as the place of occurrence of the external cause
CPT/HCPCS: 36415; 80061; 83036; 87070; Q2037

== ENCOUNTER 2018-05-13 21:13 | Emergency (ER) | payer MEDICARE, MEDICAID ==
[~2018-05-13] VITALS: Ht 170.2 cm; Wt 125.9 kg
[~2018-05-13 21:13] MED LIST changes: +BUPR-84 PO; +CARI-1 PO; -CLON2TAB12 PO; -DIVA-76 PO; +DIVA500T2 PO; +DOCU250C96 PO; -FAMO20TA44 PO; +FAMO20TA8 PO; +HYDR-3972 PO; -HYDR-4353 PO; +LAMO100T89 PO; -LAMO200T2 PO; -LIDO700A32 TOP; -LIT300C PO; -LORA-269 PO; -ONDA4TAB12 PO; -ORPH100T2 PO; +QUET25TA34 PO; +QUET300T19 PO; -QUET400T12 PO
[2018-05-13 21:16] VITALS: BP 123/64
[2018-05-13] MEDS ORDERED: QUEtiapine 25mg tablet PO SCH (21:45)
[2018-05-13] MEDS ORDERED: quetiapine 100mg tablet PO SCH (21:47)
== END 2018-05-13 22:12 | disposition home or self-care (01) ==
LOC: ER 21:14
DX: F31.9 Bipolar disorder, unspecified (principal); F41.9 Anxiety disorder, unspecified; F20.9 Schizophrenia, unspecified; Z76.0 Encounter for issue of repeat prescription; Z86.73 Personal history of transient ischemic attack (TIA), and cerebral infarction without residual deficits; G89.29 Other chronic pain; Z95.0 Presence of cardiac pacemaker; Z95.1 Presence of aortocoronary bypass graft; Z56.0 Unemployment, unspecified; Z88.6 Allergy status to analgesic agent; Z88.1 Allergy status to other antibiotic agents; Z91.041 Radiographic dye allergy status; Z88.0 Allergy status to penicillin; Z88.8 Allergy status to other drugs, medicaments and biological substances; Z91.018 Allergy to other foods
CPT/HCPCS: 99284

== ENCOUNTER 2018-07-24 05:10 | Emergency (ER) | payer MEDICARE, MEDICAID ==
[~2018-07-24] VITALS: Ht 170.2 cm; Wt 123.6 kg
--- NOTE | 2018-07-24 05:20 | NUR ---
PATIENT HAS MILD TREMORING AND REPORTS WEAKNESS WHEN AMBULATING AFTER TAKING ADDERAL. PATIENT AMBULATED TO [facility] FROM EMS [facility]. SHE REPORTS FEELING BETTER SINCE ONSET OF SYMPTOMS AT APPROXIMATELY [id number].
[2018-07-24 05:49] VITALS: BP 152/55
== END 2018-07-24 06:39 | disposition home or self-care (01) ==
LOC: ER 05:10
DX: R42 Dizziness and giddiness (principal); T43.625A Adverse effect of amphetamines, initial encounter; H53.8 Other visual disturbances; G89.29 Other chronic pain; Z86.73 Personal history of transient ischemic attack (TIA), and cerebral infarction without residual deficits; Z95.0 Presence of cardiac pacemaker; Z98.61 Coronary angioplasty status; Z98.890 Other specified postprocedural states; Z91.018 Allergy to other foods; Z88.0 Allergy status to penicillin; Z88.6 Allergy status to analgesic agent; Z88.5 Allergy status to narcotic agent; Z88.8 Allergy status to other drugs, medicaments and biological substances; Z56.0 Unemployment, unspecified; Y92.89 Other specified places as the place of occurrence of the external cause
CPT/HCPCS: 99284

== ENCOUNTER 2018-08-19 10:37 | Emergency (ER) | payer MEDICARE, MEDICAID ==
[~2018-08-19] VITALS: Ht 170.2 cm; Wt 124.1 kg
[2018-08-19 12:09] LABS: BASOPHILS % (AUTO) 0.4 % (0-1); EOSINOPHILS % (AUTO) 0.1 % (0-6); HEMOGLOBIN 16.3 g/dl (12.0-16.0); LYMPHOCYTES % (AUTO) 19.7 % (21-51); MEAN CORPUSCULAR HEMOGLOBIN 30.6 PG (27.0-31.0); MEAN CORPUSCULAR VOLUME 89.8 FL (78-98); MEAN PLATELET VOLUME 8.6 FL (7.4-10.4); MONOCYTES # (AUTO) 0.9 X10'3 (0-0.9); MONOCYTES % (AUTO) 8.9 % (2-12); NEUTROPHILS # (AUTO) 7.1 X10'3 (1.8-7.7); NEUTROPHILS % (AUTO) 70.9 % (42-75); PLATELET COUNT 285 X10'3 (140-440); RED BLOOD COUNT 5.35 X10'6 (4.20-5.60); RED CELL DISTRIBUTION WIDTH 11.7 % (11.5-14.5)
--- NOTE | 2018-08-19 12:15 | NUR ---
performed interogation of pacemaker, all lights lit up, so should have sent, called [employer], spoke to Sera Lewis, she said based on what the interogator did, it did send, she will look for it, if it dose not come, she will come in 30 minutes and interogate it
[2018-08-19 12:22] LABS: ALANINE AMINOTRANSFERASE 23 U/L (12-78); ALBUMIN 4.2 G/DL (3.4-5.0); ALBUMIN/GLOBULIN RATIO 1.2 (1.1-1.5); ALKALINE PHOSPHATASE 51 IU/L (46-116); ANION GAP 12 (8-16); ASPARTATE AMINO TRANSFERASE 11 U/L (10-37); BILIRUBIN,TOTAL 0.3 MG/DL (0.1-1.0); BLOOD UREA NITROGEN 19 MG/DL (7-18); BUN/CREATININE RATIO 18.4 (6.6-38.0); CALCIUM 9.2 MG/DL (8.5-10.1); CHLORIDE 104 MMOL/L (99-107); CREATININE 1.03 MG/DL (0.40-0.90); GLUCOSE 97 MG/DL (70-104); POTASSIUM 3.8 MMOL/L (3.5-5.1); SODIUM 139 MMOL/L (135-145); TOTAL CARBON DIOXIDE 23.5 MMOL/L (24-32); TOTAL PROTEIN 7.7 G/DL (6.4-8.2); eGFR 61 ML/MIN
[2018-08-19 12:37] LABS: LARGE PLATELETS FEW; PLATELET ESTIMATE NORMAL
[2018-08-19 14:51] VITALS: BP 123/72
--- NOTE | 2018-08-19 15:45 | NUR ---
mednaina vogel at pt bedside intergating pacemaker
== END 2018-08-19 16:03 | disposition home or self-care (01) ==
LOC: ER 10:38
DX: R00.2 Palpitations (principal); F41.9 Anxiety disorder, unspecified; F32.9 Major depressive disorder, single episode, unspecified; G89.29 Other chronic pain; F20.9 Schizophrenia, unspecified; Z86.73 Personal history of transient ischemic attack (TIA), and cerebral infarction without residual deficits; Z87.442 Personal history of urinary calculi; Z98.62 Peripheral vascular angioplasty status; Z56.0 Unemployment, unspecified; Z88.0 Allergy status to penicillin; Z88.8 Allergy status to other drugs, medicaments and biological substances; Z91.018 Allergy to other foods; Z95.0 Presence of cardiac pacemaker
CPT/HCPCS: 36415; 80053; 85025; 99284

== ENCOUNTER 2018-08-28 17:07 | Emergency (ER) | payer MEDICARE, MEDICAID ==
[~2018-08-28] VITALS: Ht 170.2 cm; Wt 124.1 kg
[2018-08-28] MEDS ORDERED: normal saline 1000ML IV soln IVB ONE (20:30)
[2018-08-28] MEDS ORDERED: aspirin 325mg tablet PO ONE (20:30)
[2018-08-28] MEDS ORDERED: magnesium 2GM in 50ml NS 50 ML IV ONE (20:30)
[2018-08-28] MEDS ORDERED: diphenhydrAMINE 50 mg/ml inj IV ONE (20:30)
[2018-08-28] MEDS ORDERED: LORazepam 2 mg/ml vial IV ONE (20:30)
[2018-08-28 20:51] LABS: BASOPHILS # (AUTO) 0.1 X10'3 (0-0.2); BASOPHILS % (AUTO) 0.6 % (0-1); EOSINOPHILS # (AUTO) 0.2 X10'3 (0-0.9); EOSINOPHILS % (AUTO) 1.7 % (0-6); HEMATOCRIT 44.5 % (35.0-45.0); HEMOGLOBIN 15.6 g/dl (12.0-16.0); LYMPHOCYTES # (AUTO) 2.5 X10'3 (1.1-4.8); LYMPHOCYTES % (AUTO) 28.3 % (21-51); MEAN CORPUSCULAR VOLUME 88.5 FL (78-98); MEAN PLATELET VOLUME 8.6 FL (7.4-10.4); MONOCYTES # (AUTO) 0.6 X10'3 (0-0.9); MONOCYTES % (AUTO) 6.9 % (2-12); NEUTROPHILS # (AUTO) 5.5 X10'3 (1.8-7.7); NEUTROPHILS % (AUTO) 62.5 % (42-75); PLATELET COUNT 264 X10'3 (140-440); RED BLOOD COUNT 5.03 X10'6 (4.20-5.60); RED CELL DISTRIBUTION WIDTH 12.6 % (11.5-14.5); WHITE BLOOD COUNT 8.9 X10'3 (4.5-11.0)
[2018-08-28 21:01] LABS: ALANINE AMINOTRANSFERASE 30 U/L (12-78); ALBUMIN 4.3 G/DL (3.4-5.0); ALBUMIN/GLOBULIN RATIO 1.2 (1.1-1.5); ALKALINE PHOSPHATASE 70 IU/L (46-116); ANION GAP 12 (8-16); ASPARTATE AMINO TRANSFERASE 15 U/L (10-37); BILIRUBIN,TOTAL 0.3 MG/DL (0.1-1.0); BLOOD UREA NITROGEN 15 MG/DL (7-18); BUN/CREATININE RATIO 13.9 (6.6-38.0); CALCIUM 9.5 MG/DL (8.5-10.1); CHLORIDE 102 MMOL/L (99-107); CREATININE 1.08 MG/DL (0.40-0.90); GLUCOSE 85 MG/DL (70-104); SODIUM 140 MMOL/L (135-145); TOTAL CARBON DIOXIDE 26.5 MMOL/L (24-32); eGFR 57 ML/MIN
[2018-08-28] MEDS ORDERED: dexamethasone 4mg/ml inj IV ONE ×2 (22:10→23:00)
[2018-08-28 22:53] LABS: URINE HCG NEGATIVE (NEG)
[2018-08-28 23:15] LABS: CLARITY,URINE CLEAR (Clear); COLOR,URINE YELLOW (Yellow); GLUCOSE, URINE NEGATIVE (Neg); KETONES,URINE NEGATIVE (Neg); LEUKOCYTE ESTERASE ,URINE NEGATIVE (Neg); NITRITES, URINE NEGATIVE (Neg); OCCULT BLOOD,URINE NEGATIVE (Neg); PROTEIN,URINE TRACE mg/dl (Neg); UROBILINOGEN,URINE 0.2 E.U/dL (0.2-1.0)
[2018-08-28 23:24] LABS: UA COLLECTION TYPE VOIDED
[2018-08-28 23:39] LABS: BACTERIA,URINE 4+ /HPF (Neg); MUCUS STRANDS MANY /LPF (Neg); RBC,URINE NONE SEEN /HPF (0-2); SQUAMOUS EPITHELIAL CELL,UR MANY /LPF (FEW); WBC,URINE NONE SEEN /HPF (0-4)
[2018-08-28 23:45] VITALS: BP 133/73
== END 2018-08-29 00:20 | disposition home or self-care (01) ==
LOC: ER 17:08
DX: G43.909 Migraine, unspecified, not intractable, without status migrainosus (principal); R11.2 Nausea with vomiting, unspecified; H53.71 Glare sensitivity; Z86.73 Personal history of transient ischemic attack (TIA), and cerebral infarction without residual deficits; Z95.0 Presence of cardiac pacemaker; Z95.1 Presence of aortocoronary bypass graft; Z56.0 Unemployment, unspecified; Z88.0 Allergy status to penicillin; Z88.8 Allergy status to other drugs, medicaments and biological substances; Z88.6 Allergy status to analgesic agent; Z88.1 Allergy status to other antibiotic agents; Z91.041 Radiographic dye allergy status
CPT/HCPCS: 36415; 71045; 80053; 81001; 81025; 83605; 84145; 85025; 87502; 87503; 96365; 96375; 99284; J1100; J1200; J2060; J3475; J7030; 96361; 96372; 99285

== ENCOUNTER 2018-10-17 18:20 | Emergency (ER) | payer OTHER, MEDICARE, MEDICAID ==
[~2018-10-17] VITALS: Ht 170.2 cm; Wt 124.0 kg
[2018-10-17] MEDS ORDERED: morphine 4 MG/ML inj SYRINge IM ONE (18:45)
[2018-10-17] MEDS ORDERED: proCHLORperazine 10 MG/2 ml inj IM ONE (18:45)
[2018-10-17 20:43] VITALS: BP 126/93
== END 2018-10-17 20:45 | disposition home or self-care (01) ==
LOC: ER 18:20
DX: S40.011A Contusion of right shoulder, initial encounter (principal); G43.909 Migraine, unspecified, not intractable, without status migrainosus; Z86.73 Personal history of transient ischemic attack (TIA), and cerebral infarction without residual deficits; Z86.69 Personal history of other diseases of the nervous system and sense organs; Z98.61 Coronary angioplasty status; Z95.0 Presence of cardiac pacemaker; Z98.890 Other specified postprocedural states; Z56.0 Unemployment, unspecified; Z88.5 Allergy status to narcotic agent; Z88.8 Allergy status to other drugs, medicaments and biological substances; Z91.018 Allergy to other foods; Z88.0 Allergy status to penicillin; Z91.041 Radiographic dye allergy status; Z79.899 Other long term (current) drug therapy; V49.9XXA Car occupant (driver) (passenger) injured in unspecified traffic accident, initial encounter; Y93.89 Activity, other specified; Y92.410 Unspecified street and highway as the place of occurrence of the external cause; Y99.8 Other external cause status
CPT/HCPCS: 96372; 99283; J0780; J2270

== ENCOUNTER 2018-12-02 18:08 | Emergency (ER) | payer MEDICARE, MEDICAID ==
[~2018-12-02] VITALS: Ht 170.2 cm; Wt 121.8 kg
[2018-12-02] MEDS ORDERED: dexamethasone sod phosphate 10mg/ml inj IV STA (18:52)
[2018-12-02] MEDS ORDERED: diphenhydrAMINE 50 mg/ml inj IV ONE (18:55)
[2018-12-02] MEDS ORDERED: normal saline 1000ML IV soln IVB ONE (18:55)
--- NOTE | 2018-12-02 19:03 | NUR ---
to ct via wheelchair with tech
[2018-12-02] MEDS ORDERED: acetaminophen 1,000mg/100ml IV 100 ML IV STA (19:33)
[2018-12-02] MEDS ORDERED: LORazepam 2 mg/ml vial IV ONE (19:35)
[2018-12-02 20:31] VITALS: BP 146/85
== END 2018-12-02 20:33 | disposition home or self-care (01) ==
LOC: ER 18:08
DX: G43.909 Migraine, unspecified, not intractable, without status migrainosus (principal); G89.29 Other chronic pain; Z86.73 Personal history of transient ischemic attack (TIA), and cerebral infarction without residual deficits; Z87.442 Personal history of urinary calculi; Z56.0 Unemployment, unspecified; Z95.5 Presence of coronary angioplasty implant and graft; Z98.890 Other specified postprocedural states; Z95.0 Presence of cardiac pacemaker; Z91.018 Allergy to other foods; Z88.6 Allergy status to analgesic agent; Z88.0 Allergy status to penicillin; Z88.5 Allergy status to narcotic agent; Z79.899 Other long term (current) drug therapy
CPT/HCPCS: 70450; 96361; 96374; 96375; 99284; J0131; J1100; J1200; J2060; J7030; 96365

== ENCOUNTER 2019-01-06 21:18 | Emergency (ER) | payer MEDICARE, MEDICAID ==
[~2019-01-06] VITALS: Ht 170.2 cm; Wt 124.1 kg
--- NOTE | 2019-01-06 21:28 | NUR ---
REC'D PHONE CALL FROM A BRUNO ZHANG WHO IS A INBOUND SALES REPRESENTATIVE AND COUNSELS THE PATIENT. SHE TOLD THE PT THAT SHE SHOULD SEEK CARE FROM US DUE TO HAVING "HIGH RISK BEHAVIORS" SUCH "BEING IN THE WRONG PARTS OF TOWN WHEN SHE DOESN'T NEED TO" AND "TAKING MORE OF CERTAIN MEDS AND NOT ENOUGH OF OTHERS"
[2019-01-06 21:39] VITALS: BP 137/81
[2019-01-07] MEDS ORDERED: QUET-1 PO (22:19)
[2019-01-08] MEDS ORDERED: QUET-1 PO (04:11)
[2019-01-08] MEDS ORDERED: LAMO100T89 PO (04:11)
[2019-01-08] MEDS ORDERED: HYDR-3965 PO (04:11)
[2019-01-08] MEDS ORDERED: HYDR-4353 PO (04:11)
[2019-01-08] MEDS ORDERED: DIVA-81 PO (04:11)
[2019-01-08] MEDS ORDERED: ZOLP10TA5 PO (04:13)
== END 2019-01-06 23:43 | disposition home or self-care (01) ==
LOC: ER 21:19
DX: F20.9 Schizophrenia, unspecified (principal); G43.909 Migraine, unspecified, not intractable, without status migrainosus; I49.9 Cardiac arrhythmia, unspecified; G89.29 Other chronic pain; F41.9 Anxiety disorder, unspecified; F31.9 Bipolar disorder, unspecified; Z87.891 Personal history of nicotine dependence; Z91.018 Allergy to other foods; Z88.0 Allergy status to penicillin; Z88.6 Allergy status to analgesic agent; Z88.8 Allergy status to other drugs, medicaments and biological substances; Z87.442 Personal history of urinary calculi; Z79.899 Other long term (current) drug therapy; Z86.73 Personal history of transient ischemic attack (TIA), and cerebral infarction without residual deficits; Z56.0 Unemployment, unspecified
CPT/HCPCS: 99281; 99284

== ENCOUNTER 2019-02-09 12:48 | Emergency (ER) | payer MEDICARE, MEDICAID ==
[~2019-02-09] VITALS: Ht 170.2 cm; Wt 128.6 kg
[~2019-02-09 12:48] MED LIST changes: -BUPR-84 PO; -CARI-1 PO; -DICL100G15 TOP; +DIVA-81 PO; -DIVA500T2 PO; -DOCU250C96 PO; -FAMO20TA8 PO; -HYDR-3972 PO; +HYDR-4353 PO; +QUET-1 PO; -QUET25TA34 PO; -QUET300T19 PO; -ZOLP10TA PO; +ZOLP10TA5 PO
[2019-02-09 12:56] VITALS: BP 128/74
[2019-02-09] MEDS ORDERED: TRAM50TA2 PO (13:41)
[2019-02-09] MEDS ORDERED: CHLO118L TOP (13:41)
[2019-02-09] MEDS ORDERED: DOXY100C43 PO (13:41)
[2019-02-09] MEDS ORDERED: CLIN30GE2 TOP (13:41)
== END 2019-02-09 14:00 | disposition home or self-care (01) ==
LOC: ER 12:51
DX: L73.2 Hidradenitis suppurativa (principal); G43.909 Migraine, unspecified, not intractable, without status migrainosus; G89.29 Other chronic pain; F31.9 Bipolar disorder, unspecified; F41.9 Anxiety disorder, unspecified; F20.9 Schizophrenia, unspecified; Z88.1 Allergy status to other antibiotic agents; Z88.0 Allergy status to penicillin; Z88.6 Allergy status to analgesic agent; Z88.8 Allergy status to other drugs, medicaments and biological substances; Z79.899 Other long term (current) drug therapy; Z98.890 Other specified postprocedural states; Z87.442 Personal history of urinary calculi; Z56.0 Unemployment, unspecified; Z86.73 Personal history of transient ischemic attack (TIA), and cerebral infarction without residual deficits; Z95.0 Presence of cardiac pacemaker; Z98.61 Coronary angioplasty status; Z86.79 Personal history of other diseases of the circulatory system; Z91.018 Allergy to other foods
CPT/HCPCS: 99283

== ENCOUNTER 2019-03-29 19:44 | Emergency (ER) | payer MEDICARE, MEDICAID ==
[~2019-03-29] VITALS: Ht 170.2 cm; Wt 125.0 kg
[~2019-03-29 19:44] MED LIST changes: +CHLO118L TOP; +CLIN30GE2 TOP
[2019-03-29] MEDS ORDERED: divalproex sodium 250mg tablet PO ONE (20:30)
[2019-03-29] MEDS ORDERED: lamoTRIgine 100mg tablet PO ONE (20:30)
[2019-03-29] MEDS ORDERED: ringers solution, lacted 1,000 ML IV ONE (20:30)
[2019-03-29 21:04] LABS: ALBUMIN 3.8 G/DL (3.4-5.0); ANION GAP 11 (8-16); BLOOD UREA NITROGEN 10 MG/DL (7-18); BUN/CREATININE RATIO 9.6 (6.6-38.0); CALCIUM 8.9 MG/DL (8.5-10.1); CHLORIDE 106 MMOL/L (99-107); CREATININE 1.04 MG/DL (0.40-0.90); GLUCOSE 107 MG/DL (70-104); POTASSIUM 3.9 MMOL/L (3.5-5.1); SODIUM 143 MMOL/L (135-145); TOTAL CARBON DIOXIDE 26.2 MMOL/L (24-32); eGFR 60 ML/MIN
[2019-03-29] MEDS ORDERED: acetaminophen 325mg tablet PO ONE (21:25)
[2019-03-29 22:01] VITALS: BP 121/67
== END 2019-03-29 22:06 | disposition home or self-care (01) ==
LOC: ER 19:45
DX: G40.909 Epilepsy, unspecified, not intractable, without status epilepticus (principal); G43.909 Migraine, unspecified, not intractable, without status migrainosus; G89.29 Other chronic pain; F41.9 Anxiety disorder, unspecified; F31.9 Bipolar disorder, unspecified; F20.9 Schizophrenia, unspecified; Z98.51 Tubal ligation status; Z95.0 Presence of cardiac pacemaker; Z98.890 Other specified postprocedural states; Z56.0 Unemployment, unspecified; Z86.73 Personal history of transient ischemic attack (TIA), and cerebral infarction without residual deficits
CPT/HCPCS: 36415; 80048; 96360; 99284; J7030; J7120

== ENCOUNTER 2019-04-13 16:43 | Emergency (ER) | payer MEDICARE, MEDICAID ==
[~2019-04-13] VITALS: Ht 170.2 cm; Wt 128.2 kg
[~2019-04-13 16:43] MED LIST changes: +LAMO100T PO; -LAMO100T89 PO
--- NOTE | 2019-04-13 16:45 | NUR ---
BIB EMS WITH C/O CP. HX PACEMAKER. CP AT REST RATED 4/10 TO 7/10 AND NAUSEA. PACED RHYTHM ON MONITOR MOTION PICTURE CAMERA OPERATOR. #20 ANGIO IN L AC. STARTED ON VYVANCE YESTERDAY AND HAS HAD 2 DOSES.
[2019-04-13] MEDS ORDERED: aspirin 81mg tab.chew PO ONE (16:50)
[2019-04-13 17:10] LABS: BASOPHILS % (AUTO) 0.3 % (0-1); EOSINOPHILS # (AUTO) 0.4 X10'3 (0-0.9); EOSINOPHILS % (AUTO) 3.2 % (0-6); HEMATOCRIT 43.5 % (35.0-45.0); HEMOGLOBIN 14.9 g/dl (12.0-16.0); LYMPHOCYTES # (AUTO) 1.4 X10'3 (1.1-4.8); LYMPHOCYTES % (AUTO) 11.6 % (21-51); MEAN CORPUSCULAR HGB CONC 34.4 g/dL (33.0-36.5); MEAN CORPUSCULAR VOLUME 90.3 FL (78-98); MEAN PLATELET VOLUME 8.3 FL (7.4-10.4); MONOCYTES # (AUTO) 1.4 X10'3 (0-0.9); MONOCYTES % (AUTO) 11.3 % (2-12); NEUTROPHILS # (AUTO) 9.2 X10'3 (1.8-7.7); NEUTROPHILS % (AUTO) 73.6 % (42-75); PLATELET COUNT 258 X10'3 (140-440); RED BLOOD COUNT 4.82 X10'6 (4.20-5.60); WHITE BLOOD COUNT 12.5 X10'3 (4.5-11.0)
[2019-04-13 17:21] LABS: ALANINE AMINOTRANSFERASE 30 U/L (12-78); ALBUMIN 3.6 G/DL (3.4-5.0); ALKALINE PHOSPHATASE 67 IU/L (46-116); ANION GAP 6 (8-16); ASPARTATE AMINO TRANSFERASE 11 U/L (10-37); BILIRUBIN,TOTAL 0.3 MG/DL (0.1-1.0); BLOOD UREA NITROGEN 15 MG/DL (7-18); BUN/CREATININE RATIO 15.2 (6.6-38.0); CALCIUM 8.8 MG/DL (8.5-10.1); CHLORIDE 104 MMOL/L (99-107); CREATININE 0.99 MG/DL (0.40-0.90); GLUCOSE 99 MG/DL (70-104); POTASSIUM 4.3 MMOL/L (3.5-5.1); SODIUM 138 MMOL/L (135-145); TOTAL CARBON DIOXIDE 28.5 MMOL/L (24-32); TOTAL PROTEIN 7.3 G/DL (6.4-8.2); eGFR 63 ML/MIN
[2019-04-13 17:28] LABS: MAGNESIUM 1.8 MG/DL (1.5-2.4)
[2019-04-13] MEDS ORDERED: morphine 4 MG/ML inj SYRINge IV ONE (17:35)
[2019-04-13] MEDS ORDERED: ondansetron/PF 4mg/2ml inj IV ONE (17:35)
[2019-04-13 17:42] LABS: D-DIMER 0.28 MG/L FEU (0-0.50)
[2019-04-13 18:27] VITALS: BP 144/60
== END 2019-04-13 18:31 | disposition home or self-care (01) ==
LOC: ER 16:43
DX: R07.81 Pleurodynia (principal); G43.909 Migraine, unspecified, not intractable, without status migrainosus; G89.29 Other chronic pain; F41.9 Anxiety disorder, unspecified; F32.9 Major depressive disorder, single episode, unspecified; F20.9 Schizophrenia, unspecified; Z87.442 Personal history of urinary calculi; Z95.0 Presence of cardiac pacemaker; Z98.61 Coronary angioplasty status; Z98.890 Other specified postprocedural states; Z56.0 Unemployment, unspecified; Z91.018 Allergy to other foods; Z88.8 Allergy status to other drugs, medicaments and biological substances; Z88.0 Allergy status to penicillin; Z79.2 Long term (current) use of antibiotics; Z79.899 Other long term (current) drug therapy
CPT/HCPCS: 36415; 71045; 80053; 83735; 83880; 84484; 85025; 85379; 93005; 96374; 96375; 99284; J2270; J2405

== ENCOUNTER 2019-06-09 19:52 | Emergency (ER) | payer MEDICARE, MEDICAID ==
[~2019-06-09] VITALS: Ht 170.2 cm; Wt 107.2 kg
[2019-06-09 19:53] VITALS: BP 153/96
[2019-06-09] MEDS ORDERED: AZIT250T83 PO (21:11)
== END 2019-06-09 21:26 | disposition home or self-care (01) ==
LOC: ER 19:53
DX: J40 Bronchitis, not specified as acute or chronic (principal); T50.8X5A Adverse effect of diagnostic agents, initial encounter; G89.29 Other chronic pain; F41.9 Anxiety disorder, unspecified; F31.9 Bipolar disorder, unspecified; F20.9 Schizophrenia, unspecified; Z86.73 Personal history of transient ischemic attack (TIA), and cerebral infarction without residual deficits; Z98.61 Coronary angioplasty status; Z95.0 Presence of cardiac pacemaker; Z98.890 Other specified postprocedural states; Z56.0 Unemployment, unspecified; Z91.018 Allergy to other foods; Z88.0 Allergy status to penicillin; Z88.5 Allergy status to narcotic agent; Z88.1 Allergy status to other antibiotic agents; Z91.041 Radiographic dye allergy status; Z79.2 Long term (current) use of antibiotics; Z79.899 Other long term (current) drug therapy; Y92.89 Other specified places as the place of occurrence of the external cause
CPT/HCPCS: 99283

== ENCOUNTER 2019-10-26 07:49 | Emergency (ER) | payer MEDICARE, MEDICAID ==
[~2019-10-26] VITALS: Ht 170.2 cm; Wt 133.0 kg
[2019-10-26] MEDS ORDERED: sulfamethoxazole/trimethoprim DS (800/160mg) tablet PO ONE (08:25)
[2019-10-26] MEDS ORDERED: SULF1TAB49 PO (08:26)
[2019-10-26] MEDS ORDERED: HYDR-4353 PO (08:30)
[2019-10-26 08:37] VITALS: BP 135/74
== END 2019-10-26 08:39 | disposition home or self-care (01) ==
LOC: ER 07:49
DX: L02.01 Cutaneous abscess of face (principal); G43.909 Migraine, unspecified, not intractable, without status migrainosus; G89.29 Other chronic pain; Z86.73 Personal history of transient ischemic attack (TIA), and cerebral infarction without residual deficits; Z56.0 Unemployment, unspecified; Z95.5 Presence of coronary angioplasty implant and graft; Z95.0 Presence of cardiac pacemaker; Z98.890 Other specified postprocedural states; Z79.899 Other long term (current) drug therapy; Z88.0 Allergy status to penicillin; Z88.6 Allergy status to analgesic agent; Z91.041 Radiographic dye allergy status; Z88.5 Allergy status to narcotic agent
CPT/HCPCS: 99283

== ENCOUNTER 2019-10-27 16:28 | Emergency (ER) | payer MEDICARE, MEDICAID ==
[~2019-10-27] VITALS: Ht 170.2 cm; Wt 124.1 kg
[~2019-10-27 16:28] MED LIST changes: +SULF1TAB49 PO
[2019-10-27 16:42] VITALS: BP 112/62
[2019-10-27] MEDS ORDERED: HYDROcodone/acetaminophen 10/325mg tab PO ONE (17:45)
[2019-10-28] MEDS ORDERED: MUPI22OI30 TOP (15:54)
== END 2019-10-27 18:03 | disposition home or self-care (01) ==
LOC: ER 16:30
DX: L03.213 Periorbital cellulitis (principal); G89.29 Other chronic pain; F41.9 Anxiety disorder, unspecified; F31.9 Bipolar disorder, unspecified; F20.9 Schizophrenia, unspecified; Z86.73 Personal history of transient ischemic attack (TIA), and cerebral infarction without residual deficits; Z86.69 Personal history of other diseases of the nervous system and sense organs; Z98.61 Coronary angioplasty status; Z95.0 Presence of cardiac pacemaker; Z98.890 Other specified postprocedural states; Z56.0 Unemployment, unspecified; Z91.018 Allergy to other foods; Z88.0 Allergy status to penicillin; Z91.041 Radiographic dye allergy status; Z88.8 Allergy status to other drugs, medicaments and biological substances; Z88.5 Allergy status to narcotic agent; Z88.6 Allergy status to analgesic agent; Z79.2 Long term (current) use of antibiotics; Z79.899 Other long term (current) drug therapy
CPT/HCPCS: 99284

== ENCOUNTER 2019-10-28 15:41 | Emergency (ER) | payer MEDICARE, MEDICAID ==
[~2019-10-28] VITALS: Ht 170.2 cm; Wt 124.0 kg
[2019-10-28 15:49] VITALS: BP 136/81
[2019-10-28] MEDS ORDERED: MUPI22OI30 TOP (15:54)
[2019-10-28] MEDS ORDERED: traMADol 50MG tablet PO ONE (15:55)
== END 2019-10-28 16:05 | disposition home or self-care (01) ==
LOC: ER 15:42
DX: L03.211 Cellulitis of face (principal); G89.29 Other chronic pain; F41.9 Anxiety disorder, unspecified; F31.9 Bipolar disorder, unspecified; F20.9 Schizophrenia, unspecified; Z86.73 Personal history of transient ischemic attack (TIA), and cerebral infarction without residual deficits; Z86.69 Personal history of other diseases of the nervous system and sense organs; Z98.61 Coronary angioplasty status; Z95.0 Presence of cardiac pacemaker; Z98.890 Other specified postprocedural states; Z56.0 Unemployment, unspecified; Z91.018 Allergy to other foods; Z88.0 Allergy status to penicillin; Z91.041 Radiographic dye allergy status; Z88.5 Allergy status to narcotic agent; Z88.8 Allergy status to other drugs, medicaments and biological substances; Z88.6 Allergy status to analgesic agent; Z79.2 Long term (current) use of antibiotics; Z79.899 Other long term (current) drug therapy
CPT/HCPCS: 99283

== ENCOUNTER 2019-10-30 19:09 | Emergency (ER) | payer MEDICARE, MEDICAID ==
[~2019-10-30] VITALS: Ht 170.2 cm; Wt 124.5 kg
[~2019-10-30 19:09] MED LIST changes: +MUPI22OI30 TOP
[2019-10-30 19:10] VITALS: BP 120/69
[2019-10-30] MEDS ORDERED: LIDOcaine/epinephrine/tetracaine TOPICAL sol 3 ML syringe TOP ONE (19:50)
[2019-10-30] MEDS ORDERED: LIDOcaine 1% W/epiNEPHrine 1:200,000 10ml vial IJ ONE (19:50)
--- NOTE | 2019-10-30 20:02 | NUR ---
LET applied to the right cheek wound/abscess.
[2019-10-30] MEDS ORDERED: HYDROcodone/acetaminophen 5mg/325mg tablet PO ONE (20:45)
[2019-10-30] MEDS ORDERED: ondansetron 4mg rapidly disintigrating tab PO ONE (20:45)
[2019-10-30] MEDS ORDERED: HYDR-3965 PO (21:07)
== END 2019-10-30 21:13 | disposition home or self-care (01) ==
LOC: ER 19:09
DX: L02.01 Cutaneous abscess of face (principal); G89.29 Other chronic pain; F41.9 Anxiety disorder, unspecified; F31.9 Bipolar disorder, unspecified; F20.9 Schizophrenia, unspecified; Z86.73 Personal history of transient ischemic attack (TIA), and cerebral infarction without residual deficits; Z86.69 Personal history of other diseases of the nervous system and sense organs; Z98.61 Coronary angioplasty status; Z95.0 Presence of cardiac pacemaker; Z98.890 Other specified postprocedural states; Z56.0 Unemployment, unspecified; Z88.0 Allergy status to penicillin; Z91.018 Allergy to other foods; Z91.041 Radiographic dye allergy status; Z88.8 Allergy status to other drugs, medicaments and biological substances; Z88.6 Allergy status to analgesic agent; Z88.2 Allergy status to sulfonamides; Z79.899 Other long term (current) drug therapy
CPT/HCPCS: 10060; 87070; 87077; 99284

== ENCOUNTER 2019-11-03 17:25 | Emergency (ER) | payer MEDICARE, MEDICAID ==
[~2019-11-03] VITALS: Ht 170.2 cm; Wt 124.1 kg
[~2019-11-03 17:25] MED LIST changes: +HYDR-3965 PO
[2019-11-03] MEDS ORDERED: L. R1CAP4 PO (20:06)
[2019-11-03] MEDS ORDERED: DOXY100C2 PO (20:06)
[2019-11-03 20:14] VITALS: BP 121/82
== END 2019-11-03 20:16 | disposition home or self-care (01) ==
LOC: ER 17:26
DX: H00.033 Abscess of eyelid right eye, unspecified eyelid (principal); G89.29 Other chronic pain; F41.9 Anxiety disorder, unspecified; F31.9 Bipolar disorder, unspecified; F20.9 Schizophrenia, unspecified; Z86.73 Personal history of transient ischemic attack (TIA), and cerebral infarction without residual deficits; Z86.69 Personal history of other diseases of the nervous system and sense organs; Z98.61 Coronary angioplasty status; Z95.0 Presence of cardiac pacemaker; Z98.890 Other specified postprocedural states; Z56.0 Unemployment, unspecified; Z91.018 Allergy to other foods; Z91.041 Radiographic dye allergy status; Z88.0 Allergy status to penicillin; Z88.5 Allergy status to narcotic agent; Z88.8 Allergy status to other drugs, medicaments and biological substances; Z88.6 Allergy status to analgesic agent; Z79.2 Long term (current) use of antibiotics; Z79.899 Other long term (current) drug therapy
CPT/HCPCS: 99284

== ENCOUNTER 2019-11-24 16:35 | Emergency (ER) | payer MEDICARE, MEDICAID ==
[~2019-11-24] VITALS: Ht 170.2 cm; Wt 124.0 kg
[~2019-11-24 16:35] MED LIST changes: -HYDR-3965 PO; +L. R1CAP4 PO; -MUPI22OI30 TOP; -SULF1TAB49 PO
[2019-11-24 16:50] VITALS: BP 142/69
[2019-11-24] MEDS ORDERED: ondansetron 4mg rapidly disintigrating tab PO ONE (18:30)
[2019-11-24] MEDS ORDERED: HYDROcodone/acetaminophen 5mg/325mg tablet PO ONE (18:30)
[2019-11-25] MEDS ORDERED: ONDA4TAB6 PO (19:14)
[2019-11-25] MEDS ORDERED: HYDR-4383 PO (19:14)
== END 2019-11-24 19:13 | disposition home or self-care (01) ==
LOC: ER 16:36
DX: S73.102A Unspecified sprain of left hip, initial encounter (principal); M25.552 Pain in left hip; G43.909 Migraine, unspecified, not intractable, without status migrainosus; G89.29 Other chronic pain; F41.9 Anxiety disorder, unspecified; F31.9 Bipolar disorder, unspecified; F20.9 Schizophrenia, unspecified; Z86.73 Personal history of transient ischemic attack (TIA), and cerebral infarction without residual deficits; Z86.69 Personal history of other diseases of the nervous system and sense organs; Z87.442 Personal history of urinary calculi; Z98.890 Other specified postprocedural states; Z95.0 Presence of cardiac pacemaker; Z56.0 Unemployment, unspecified; Z88.6 Allergy status to analgesic agent; Z88.0 Allergy status to penicillin; Z88.8 Allergy status to other drugs, medicaments and biological substances; Z91.018 Allergy to other foods; Z79.2 Long term (current) use of antibiotics; Z79.899 Other long term (current) drug therapy; X58.XXXA Exposure to other specified factors, initial encounter; Y93.89 Activity, other specified; Y92.89 Other specified places as the place of occurrence of the external cause; Y99.8 Other external cause status
CPT/HCPCS: 73700; 99284

== ENCOUNTER 2019-11-25 18:43 | Emergency (ER) | payer MEDICARE, MEDICAID ==
[~2019-11-25] VITALS: Ht 170.2 cm; Wt 124.1 kg
[2019-11-25 18:49] VITALS: BP 133/78
[2019-11-25] MEDS ORDERED: HYDR-4383 PO (19:14)
[2019-11-25] MEDS ORDERED: ONDA4TAB6 PO (19:14)
[2019-11-25] MEDS ORDERED: ondansetron 4mg rapidly disintigrating tab PO ONE (19:20)
[2019-11-25] MEDS ORDERED: HYDROcodone/acetaminophen 5mg/325mg tablet PO ONE (19:20)
== END 2019-11-25 19:48 | disposition home or self-care (01) ==
LOC: ER 18:44
DX: M25.551 Pain in right hip (principal); G43.909 Migraine, unspecified, not intractable, without status migrainosus; G89.29 Other chronic pain; F41.9 Anxiety disorder, unspecified; F31.9 Bipolar disorder, unspecified; F20.9 Schizophrenia, unspecified; Z86.73 Personal history of transient ischemic attack (TIA), and cerebral infarction without residual deficits; Z86.69 Personal history of other diseases of the nervous system and sense organs; Z87.442 Personal history of urinary calculi; Z95.0 Presence of cardiac pacemaker; Z98.890 Other specified postprocedural states; Z56.0 Unemployment, unspecified; Z88.6 Allergy status to analgesic agent; Z88.0 Allergy status to penicillin; Z88.8 Allergy status to other drugs, medicaments and biological substances; Z91.018 Allergy to other foods; Z79.2 Long term (current) use of antibiotics; Z79.899 Other long term (current) drug therapy
CPT/HCPCS: 99284

== ENCOUNTER 2019-12-23 21:21 | Emergency (ER) | payer MEDICARE, MEDICAID ==
[~2019-12-23] VITALS: Ht 170.2 cm; Wt 126.4 kg
[~2019-12-23 21:21] MED LIST changes: +HYDR-4383 PO; +ONDA4TAB6 PO
[2019-12-23 21:24] VITALS: BP 147/92
[2019-12-23] MEDS ORDERED: normal saline 1000ML IV soln IVB ONE (22:05)
[2019-12-23] MEDS ORDERED: morphine 4 MG/ML inj SYRINge IV PRN (22:05)
[2019-12-23] MEDS ORDERED: ondansetron/PF 4mg/2ml inj IV ONE (22:05)
[2019-12-23] MEDS ORDERED: ketorolac trometh. 30mg/ml inj. IV ONE (22:05)
== END 2019-12-23 22:49 | disposition home or self-care (01) ==
LOC: ER 21:22
DX: R10.11 Right upper quadrant pain (principal); G43.909 Migraine, unspecified, not intractable, without status migrainosus; G89.29 Other chronic pain; F41.9 Anxiety disorder, unspecified; F31.9 Bipolar disorder, unspecified; F20.9 Schizophrenia, unspecified; Z86.69 Personal history of other diseases of the nervous system and sense organs; Z98.61 Coronary angioplasty status; Z95.0 Presence of cardiac pacemaker; Z98.890 Other specified postprocedural states; Z56.0 Unemployment, unspecified; Z88.0 Allergy status to penicillin; Z91.041 Radiographic dye allergy status; Z91.018 Allergy to other foods; Z79.899 Other long term (current) drug therapy
CPT/HCPCS: 96374; 96375; 99284; J1885; J2270; J2405; J7030

== ENCOUNTER 2020-01-03 06:35 | Emergency (ER) | payer MEDICARE, MEDICAID ==
[~2020-01-03] VITALS: Ht 170.2 cm; Wt 143.0 kg
--- NOTE | 2020-01-03 06:45 | NUR ---
discussed case with dr escalona asked if he want me to order acs protocol for increased weakness ? as per md do not order untill he see the pt if needed he will order.
--- NOTE | 2020-01-03 07:27 | NUR ---
crystal from lab at bedside.
[2020-01-03 07:43] LABS: BASOPHILS % (AUTO) 0.5 % (0-1); EOSINOPHILS # (AUTO) 0.7 X10'3 (0-0.9); EOSINOPHILS % (AUTO) 11.1 % (0-6); HEMATOCRIT 43.8 % (35.0-45.0); HEMOGLOBIN 14.8 g/dl (12.0-16.0); LYMPHOCYTES # (AUTO) 1.9 X10'3 (1.1-4.8); LYMPHOCYTES % (AUTO) 29.1 % (21-51); MEAN CORPUSCULAR HGB CONC 33.9 g/dL (33.0-36.5); MEAN CORPUSCULAR VOLUME 88.7 FL (78-98); MEAN PLATELET VOLUME 8.6 FL (7.4-10.4); MONOCYTES # (AUTO) 0.5 X10'3 (0-0.9); MONOCYTES % (AUTO) 8.1 % (2-12); NEUTROPHILS # (AUTO) 3.4 X10'3 (1.8-7.7); NEUTROPHILS % (AUTO) 51.2 % (42-75); PLATELET COUNT 253 X10'3 (140-440); RED BLOOD COUNT 4.94 X10'6 (4.20-5.60); RED CELL DISTRIBUTION WIDTH 12.3 % (11.5-14.5); WHITE BLOOD COUNT 6.6 X10'3 (4.5-11.0)
[2020-01-03 08:03] LABS: ALANINE AMINOTRANSFERASE 55 U/L (12-78); ALBUMIN 3.5 G/DL (3.4-5.0); ALBUMIN/GLOBULIN RATIO 0.9 (1.1-1.5); ALKALINE PHOSPHATASE 68 IU/L (46-116); ANION GAP 8 (8-16); ASPARTATE AMINO TRANSFERASE 26 U/L (10-37); BILIRUBIN,TOTAL 0.2 MG/DL (0.1-1.0); BLOOD UREA NITROGEN 10 MG/DL (7-18); BUN/CREATININE RATIO 9.3 (6.6-38.0); CALCIUM 9.8 MG/DL (8.5-10.1); CHLORIDE 106 MMOL/L (99-107); CREATININE 1.08 MG/DL (0.40-0.90); GLUCOSE 105 MG/DL (70-104); POTASSIUM 4.3 MMOL/L (3.5-5.1); SODIUM 141 MMOL/L (135-145); TOTAL CARBON DIOXIDE 27.4 MMOL/L (24-32); TOTAL PROTEIN 7.3 G/DL (6.4-8.2); eGFR 57 ML/MIN
[2020-01-03 08:12] LABS: C-REACTIVE PROTEIN 0.43 MG/DL (0.0-0.5)
[2020-01-03 08:21] LABS: URINE HCG NEGATIVE (NEG)
[2020-01-03 08:22] LABS: CLARITY,URINE SLIGHTLY CLOUDY (Clear); COLOR,URINE YELLOW (Yellow); GLUCOSE, URINE NEGATIVE (Neg); KETONES,URINE NEGATIVE (Neg); LEUKOCYTE ESTERASE ,URINE NEGATIVE (Neg); NITRITES, URINE NEGATIVE (Neg); OCCULT BLOOD,URINE NEGATIVE (Neg); PROTEIN,URINE NEGATIVE (Neg); UROBILINOGEN,URINE 0.2 E.U/dL (0.2-1.0)
[2020-01-03 08:23] LABS: UA COLLECTION TYPE CLN CATCH MIDSTREAM
[2020-01-03 08:28] LABS: BACTERIA,URINE 2+ /HPF (Neg); MUCUS STRANDS FEW /LPF (Neg); RBC,URINE NONE SEEN /HPF (0-2); SQUAMOUS EPITHELIAL CELL,UR MODERATE /LPF (FEW); WBC,URINE 0-4 /HPF (0-4)
[2020-01-03 08:32] LABS: VALPROATE 50 UG/ML (50-100)
[2020-01-03] MEDS ORDERED: HCTZ25T PO (09:10)
[2020-01-03] MEDS ORDERED: TRIA15CR62 TP (09:10)
[2020-01-03 09:21] VITALS: BP 144/75
== END 2020-01-03 09:22 | disposition home or self-care (01) ==
LOC: ER 06:35
DX: R60.9 Edema, unspecified (principal); R21 Rash and other nonspecific skin eruption; G43.909 Migraine, unspecified, not intractable, without status migrainosus; Z86.73 Personal history of transient ischemic attack (TIA), and cerebral infarction without residual deficits; Z86.69 Personal history of other diseases of the nervous system and sense organs; M19.90 Unspecified osteoarthritis, unspecified site; G89.29 Other chronic pain; F41.9 Anxiety disorder, unspecified; F31.9 Bipolar disorder, unspecified; F20.9 Schizophrenia, unspecified; Z98.61 Coronary angioplasty status; Z95.0 Presence of cardiac pacemaker; Z56.0 Unemployment, unspecified; Z88.0 Allergy status to penicillin; Z91.041 Radiographic dye allergy status; Z91.02 Food additives allergy status; Z79.899 Other long term (current) drug therapy
CPT/HCPCS: 71045; 80053; 80164; 81001; 81025; 83735; 84443; 84484; 85025; 85610; 86140; 99284

== ENCOUNTER 2020-01-21 17:56 | Emergency (ER) | payer MEDICARE, MEDICAID ==
[~2020-01-21] VITALS: Ht 170.2 cm; Wt 124.1 kg
[~2020-01-21 17:56] MED LIST changes: +HCTZ25T PO; +TRIA15CR62 TP
[2020-01-21] MEDS ORDERED: predniSONE 20 mg tablet PO ONE (18:05)
[2020-01-21] MEDS ORDERED: ipratropium/albuterol 3ml nebule NEB ONE (18:50)
[2020-01-21] MEDS ORDERED: DOXY100C43 PO (19:24)
[2020-01-21] MEDS ORDERED: PRED20TA PO (19:24)
[2020-01-21 19:41] VITALS: BP 131/85
== END 2020-01-21 19:38 | disposition home or self-care (01) ==
LOC: ER 17:56
DX: J20.9 Acute bronchitis, unspecified (principal); G43.909 Migraine, unspecified, not intractable, without status migrainosus; G89.29 Other chronic pain; Z56.0 Unemployment, unspecified; Z87.891 Personal history of nicotine dependence; Z95.5 Presence of coronary angioplasty implant and graft; Z95.0 Presence of cardiac pacemaker; Z86.73 Personal history of transient ischemic attack (TIA), and cerebral infarction without residual deficits; Z79.899 Other long term (current) drug therapy; Z91.018 Allergy to other foods; Z88.6 Allergy status to analgesic agent; Z88.0 Allergy status to penicillin; Z91.041 Radiographic dye allergy status
CPT/HCPCS: 71045; 94640; 99283; J7512; 94760

== ENCOUNTER 2020-01-29 19:37 | Emergency (ER) | payer MEDICARE, MEDICAID ==
[~2020-01-29] VITALS: Ht 170.2 cm; Wt 124.1 kg
[~2020-01-29 19:37] MED LIST changes: +DOXY100C43 PO; +PRED20TA PO
--- NOTE | 2020-01-29 21:28 | NUR ---
Ambulatory with Routing Clerk to X-ray.
--- NOTE | 2020-01-29 21:29 | NUR ---
Return from X-ray ambulatory with steady gait.
[2020-01-29 22:50] VITALS: BP 135/83
== END 2020-01-29 22:52 | disposition home or self-care (01) ==
LOC: ER 19:38
DX: J06.9 Acute upper respiratory infection, unspecified (principal); G43.909 Migraine, unspecified, not intractable, without status migrainosus; G89.29 Other chronic pain; F31.9 Bipolar disorder, unspecified; F41.9 Anxiety disorder, unspecified; F20.9 Schizophrenia, unspecified; Z98.61 Coronary angioplasty status; Z95.0 Presence of cardiac pacemaker; Z98.890 Other specified postprocedural states; Z56.0 Unemployment, unspecified; Z88.0 Allergy status to penicillin; Z88.5 Allergy status to narcotic agent; Z88.8 Allergy status to other drugs, medicaments and biological substances; Z79.899 Other long term (current) drug therapy
CPT/HCPCS: 71046; 99283

== ENCOUNTER 2020-02-20 01:17 | Emergency (ER) | payer MEDICARE, MEDICAID ==
[~2020-02-20] VITALS: Ht 170.2 cm; Wt 122.7 kg
[~2020-02-20 01:17] MED LIST changes: -DOXY100C43 PO; -TRIA15CR62 TP
[2020-02-20] MEDS ORDERED: LORazepam 2 mg/ml vial IV ONE (01:25)
[2020-02-20] MEDS ORDERED: normal saline 1000ML IV soln IVB ONE (01:25)
[2020-02-20] MEDS ORDERED: LIDOcaine Viscous 15ml cup MM ONE (02:10)
[2020-02-20 02:50] VITALS: BP 117/72
== END 2020-02-20 02:30 | disposition home or self-care (01) ==
LOC: ER 01:18
DX: R47.02 Dysphasia (principal); R68.2 Dry mouth, unspecified; R13.10 Dysphagia, unspecified; G43.909 Migraine, unspecified, not intractable, without status migrainosus; G89.29 Other chronic pain; F41.9 Anxiety disorder, unspecified; F31.9 Bipolar disorder, unspecified; F20.9 Schizophrenia, unspecified; Z90.49 Acquired absence of other specified parts of digestive tract; Z95.0 Presence of cardiac pacemaker; Z98.890 Other specified postprocedural states; Z56.0 Unemployment, unspecified; Z88.0 Allergy status to penicillin; Z88.5 Allergy status to narcotic agent; Z88.8 Allergy status to other drugs, medicaments and biological substances; Z79.899 Other long term (current) drug therapy
CPT/HCPCS: 96361; 96374; 99283; J2060; J7030

== ENCOUNTER 2020-03-15 17:03 | Emergency (ER) | payer MEDICARE, MEDICAID ==
[~2020-03-15] VITALS: Ht 170.2 cm; Wt 140.0 kg
[~2020-03-15 17:03] MED LIST changes: -PRED20TA PO
[2020-03-15 17:15] VITALS: BP 132/81
[2020-03-15] MEDS ORDERED: oxyCODONE SR 10mg (sust. release) tab PO ONE (18:10)
== END 2020-03-15 18:54 | disposition home or self-care (01) ==
LOC: ER 17:04
DX: K08.89 Other specified disorders of teeth and supporting structures (principal); G89.29 Other chronic pain; F41.9 Anxiety disorder, unspecified; F31.9 Bipolar disorder, unspecified; F20.9 Schizophrenia, unspecified; Z98.61 Coronary angioplasty status; Z95.0 Presence of cardiac pacemaker; Z98.890 Other specified postprocedural states; Z86.73 Personal history of transient ischemic attack (TIA), and cerebral infarction without residual deficits; Z86.69 Personal history of other diseases of the nervous system and sense organs; Z91.018 Allergy to other foods; Z88.8 Allergy status to other drugs, medicaments and biological substances; Z88.6 Allergy status to analgesic agent; Z91.041 Radiographic dye allergy status; Z88.0 Allergy status to penicillin; Z79.2 Long term (current) use of antibiotics; Z79.899 Other long term (current) drug therapy
CPT/HCPCS: 99283

== ENCOUNTER 2020-07-04 09:52 | Emergency (ER) | payer MEDICARE, MEDICAID ==
[~2020-07-04] VITALS: Ht 170.2 cm; Wt 144.0 kg
[2020-07-04 10:32] VITALS: BP 156/84
== END 2020-07-04 13:37 | disposition home or self-care (01) ==
LOC: ER 09:53
DX: S70.01XA Contusion of right hip, initial encounter (principal); M25.551 Pain in right hip; G43.909 Migraine, unspecified, not intractable, without status migrainosus; G89.29 Other chronic pain; F41.9 Anxiety disorder, unspecified; F31.9 Bipolar disorder, unspecified; F20.9 Schizophrenia, unspecified; Z86.73 Personal history of transient ischemic attack (TIA), and cerebral infarction without residual deficits; Z86.69 Personal history of other diseases of the nervous system and sense organs; Z87.442 Personal history of urinary calculi; Z95.0 Presence of cardiac pacemaker; Z98.890 Other specified postprocedural states; Z56.0 Unemployment, unspecified; Z91.018 Allergy to other foods; Z88.0 Allergy status to penicillin; Z88.8 Allergy status to other drugs, medicaments and biological substances; Z88.6 Allergy status to analgesic agent; Z79.2 Long term (current) use of antibiotics; Z79.899 Other long term (current) drug therapy; W19.XXXA Unspecified fall, initial encounter; Y93.89 Activity, other specified; Y92.89 Other specified places as the place of occurrence of the external cause; Y99.8 Other external cause status
CPT/HCPCS: 73502; 99284

== ENCOUNTER 2020-07-21 12:06 | Emergency (ER) | payer MEDICARE, MEDICAID ==
[~2020-07-21] VITALS: Ht 170.2 cm; Wt 147.0 kg
[2020-07-21] MEDS ORDERED: LIDOcaine Viscous 15ml cup MM PRN (13:30)
[2020-07-21 14:06] LABS: BASOPHILS # (AUTO) 0.1 X10'3 (0-0.2); BASOPHILS % (AUTO) 0.7 % (0-1); EOSINOPHILS # (AUTO) 1.3 X10'3 (0-0.9); EOSINOPHILS % (AUTO) 17.5 % (0-6); HEMOGLOBIN 13.5 g/dl (12.0-16.0); LYMPHOCYTES # (AUTO) 1.8 X10'3 (1.1-4.8); LYMPHOCYTES % (AUTO) 25.3 % (21-51); MEAN CORPUSCULAR HEMOGLOBIN 29.3 PG (27.0-31.0); MEAN CORPUSCULAR HGB CONC 33.6 g/dL (33.0-36.5); MEAN CORPUSCULAR VOLUME 87.2 FL (78-98); MEAN PLATELET VOLUME 8.7 FL (7.4-10.4); MONOCYTES # (AUTO) 0.7 X10'3 (0-0.9); MONOCYTES % (AUTO) 9.5 % (2-12); NEUTROPHILS # (AUTO) 3.4 X10'3 (1.8-7.7); PLATELET COUNT 203 X10'3 (140-440); RED BLOOD COUNT 4.59 X10'6 (4.20-5.60); RED CELL DISTRIBUTION WIDTH 13.6 % (11.5-14.5); WHITE BLOOD COUNT 7.3 X10'3 (4.5-11.0)
[2020-07-21 14:12] LABS: ALANINE AMINOTRANSFERASE 55 U/L (12-78); ALBUMIN 3.3 G/DL (3.4-5.0); ALKALINE PHOSPHATASE 67 IU/L (46-116); ANION GAP 7 (8-16); ASPARTATE AMINO TRANSFERASE 28 U/L (10-37); BILIRUBIN,TOTAL 0.2 MG/DL (0.1-1.0); BLOOD UREA NITROGEN 10 MG/DL (7-18); BUN/CREATININE RATIO 9.7 (6.6-38.0); CALCIUM 8.9 MG/DL (8.5-10.1); CHLORIDE 106 MMOL/L (99-107); CREATININE 1.03 MG/DL (0.40-0.90); GLUCOSE 117 MG/DL (70-104); POTASSIUM 4.1 MMOL/L (3.5-5.1); SODIUM 139 MMOL/L (135-145); TOTAL CARBON DIOXIDE 25.8 MMOL/L (24-32); TOTAL PROTEIN 6.7 G/DL (6.4-8.2); eGFR 60 ML/MIN
[2020-07-21] MEDS ORDERED: LIDO20SO16 PO (15:46)
[2020-07-21] MEDS ORDERED: ACET-1025 PO (15:46)
[2020-07-21 15:57] VITALS: BP 146/92
== END 2020-07-21 16:00 | disposition home or self-care (01) ==
LOC: ER 12:06
DX: K12.0 Recurrent oral aphthae (principal); J02.9 Acute pharyngitis, unspecified; R21 Rash and other nonspecific skin eruption; G43.909 Migraine, unspecified, not intractable, without status migrainosus; G89.29 Other chronic pain; F41.9 Anxiety disorder, unspecified; F31.9 Bipolar disorder, unspecified; F20.9 Schizophrenia, unspecified; F17.200 Nicotine dependence, unspecified, uncomplicated; Z86.73 Personal history of transient ischemic attack (TIA), and cerebral infarction without residual deficits; Z86.69 Personal history of other diseases of the nervous system and sense organs; Z87.442 Personal history of urinary calculi; Z86.14 Personal history of Methicillin resistant Staphylococcus aureus infection; Z95.0 Presence of cardiac pacemaker; Z98.890 Other specified postprocedural states; Z56.0 Unemployment, unspecified; Z88.0 Allergy status to penicillin; Z88.6 Allergy status to analgesic agent; Z88.8 Allergy status to other drugs, medicaments and biological substances; Z91.018 Allergy to other foods; Z79.2 Long term (current) use of antibiotics; Z79.899 Other long term (current) drug therapy
CPT/HCPCS: 36415; 80053; 83880; 85025; 99283

== ENCOUNTER 2020-07-22 00:49 | Emergency (ER) | payer MEDICARE, MEDICAID ==
[~2020-07-22] VITALS: Ht 170.2 cm; Wt 132.7 kg
[~2020-07-22 00:49] MED LIST changes: +ACET-1025 PO; +LIDO20SO16 PO
[2020-07-22 00:56] VITALS: BP 153/71
== END 2020-07-22 02:20 | disposition home or self-care (01) ==
LOC: ER 00:49
DX: R60.0 Localized edema (principal); G43.909 Migraine, unspecified, not intractable, without status migrainosus; G89.29 Other chronic pain; F41.9 Anxiety disorder, unspecified; F31.9 Bipolar disorder, unspecified; F20.9 Schizophrenia, unspecified; Z86.73 Personal history of transient ischemic attack (TIA), and cerebral infarction without residual deficits; Z86.69 Personal history of other diseases of the nervous system and sense organs; Z87.442 Personal history of urinary calculi; Z95.0 Presence of cardiac pacemaker; Z98.890 Other specified postprocedural states; Z56.0 Unemployment, unspecified; Z88.0 Allergy status to penicillin; Z88.8 Allergy status to other drugs, medicaments and biological substances; Z88.6 Allergy status to analgesic agent; Z91.018 Allergy to other foods; Z79.2 Long term (current) use of antibiotics; Z79.899 Other long term (current) drug therapy
CPT/HCPCS: 99283

== ENCOUNTER 2020-09-22 12:49 | Emergency (ER) | payer MEDICARE, MEDICAID ==
[~2020-09-22] VITALS: Ht 170.2 cm; Wt 143.5 kg
[~2020-09-22 12:49] MED LIST changes: -ACET-1025 PO; -HCTZ25T PO; +HYDR25TA5 PO
[2020-09-22 14:08] LABS: BASOPHILS % (AUTO) 0.4 % (0-1); EOSINOPHILS # (AUTO) 0.8 X10'3 (0-0.9); EOSINOPHILS % (AUTO) 8.7 % (0-6); HEMATOCRIT 45.4 % (35.0-45.0); HEMOGLOBIN 15.4 g/dl (12.0-16.0); LYMPHOCYTES # (AUTO) 1.8 X10'3 (1.1-4.8); MEAN CORPUSCULAR HEMOGLOBIN 29.5 PG (27.0-31.0); MEAN CORPUSCULAR VOLUME 86.8 FL (78-98); MEAN PLATELET VOLUME 8.5 FL (7.4-10.4); MONOCYTES % (AUTO) 11.2 % (2-12); NEUTROPHILS # (AUTO) 5.1 X10'3 (1.8-7.7); NEUTROPHILS % (AUTO) 58.7 % (42-75); PLATELET COUNT 248 X10'3 (140-440); RED BLOOD COUNT 5.23 X10'6 (4.20-5.60); RED CELL DISTRIBUTION WIDTH 13.5 % (11.5-14.5); WHITE BLOOD COUNT 8.8 X10'3 (4.5-11.0)
[2020-09-22 14:23] LABS: ALANINE AMINOTRANSFERASE 48 U/L (12-78); ALBUMIN 3.7 G/DL (3.4-5.0); ALBUMIN/GLOBULIN RATIO 0.9 (1.1-1.5); ALKALINE PHOSPHATASE 86 IU/L (46-116); ANION GAP 7 (8-16); ASPARTATE AMINO TRANSFERASE 23 U/L (10-37); BILIRUBIN,TOTAL 0.2 MG/DL (0.1-1.0); BLOOD UREA NITROGEN 16 MG/DL (7-18); BUN/CREATININE RATIO 16.5 (6.6-38.0); CALCIUM 9.3 MG/DL (8.5-10.1); CHLORIDE 106 MMOL/L (99-107); CREATININE 0.97 MG/DL (0.40-0.90); GLUCOSE 107 MG/DL (70-104); LIPASE 176 U/L (73-393); POTASSIUM 5.1 MMOL/L (3.5-5.1); SODIUM 141 MMOL/L (135-145); TOTAL CARBON DIOXIDE 28.2 MMOL/L (24-32); TOTAL PROTEIN 7.6 G/DL (6.4-8.2); eGFR 64 ML/MIN
[2020-09-22 15:59] VITALS: BP 156/87
[2020-09-22] MEDS ORDERED: ondansetron 4mg rapidly disintigrating tab PO ONE (16:55)
[2020-09-22] MEDS ORDERED: morphine 4 MG/ML inj SYRINge IM ONE (16:55)
[2020-09-22 17:29] LABS: URINE HCG NEGATIVE (NEG)
[2020-09-22 17:38] LABS: CLARITY,URINE CLOUDY (Clear); COLOR,URINE YELLOW (Yellow); GLUCOSE, URINE NEGATIVE (Neg); KETONES,URINE NEGATIVE (Neg); LEUKOCYTE ESTERASE ,URINE NEGATIVE (Neg); NITRITES, URINE NEGATIVE (Neg); OCCULT BLOOD,URINE LARGE (Neg); PH,URINE 6.5 (4.8-8.0); PROTEIN,URINE TRACE mg/dl (Neg); UROBILINOGEN,URINE 0.2 E.U/dL (0.2-1.0)
[2020-09-22 17:46] LABS: UA COLLECTION TYPE CLN CATCH MIDSTREAM
[2020-09-22 17:49] LABS: MUCUS STRANDS FEW /LPF (Neg); SQUAMOUS EPITHELIAL CELL,UR MODERATE /LPF (FEW)
[2020-09-22 17:51] LABS: BACTERIA,URINE FEW /HPF (Neg); RBC,URINE 20-50 /HPF (0-2); WBC,URINE 0-4 /HPF (0-4)
== END 2020-09-22 18:12 | disposition home or self-care (01) ==
LOC: ER 12:50
DX: R10.2 Pelvic and perineal pain (principal); R10.30 Lower abdominal pain, unspecified; G43.909 Migraine, unspecified, not intractable, without status migrainosus; G89.29 Other chronic pain; F41.9 Anxiety disorder, unspecified; F31.9 Bipolar disorder, unspecified; Z86.73 Personal history of transient ischemic attack (TIA), and cerebral infarction without residual deficits; Z86.69 Personal history of other diseases of the nervous system and sense organs; Z87.442 Personal history of urinary calculi; Z86.14 Personal history of Methicillin resistant Staphylococcus aureus infection; Z98.890 Other specified postprocedural states; Z95.0 Presence of cardiac pacemaker; Z56.0 Unemployment, unspecified; Z88.0 Allergy status to penicillin; Z88.8 Allergy status to other drugs, medicaments and biological substances; Z91.018 Allergy to other foods; Z79.2 Long term (current) use of antibiotics; Z79.899 Other long term (current) drug therapy
CPT/HCPCS: 36415; 76830; 76856; 80053; 81001; 81025; 83690; 85025; 93976; 96372; 99284; J2270

== ENCOUNTER 2020-10-25 19:48 | Emergency (ER) | payer MEDICARE, MEDICAID ==
[~2020-10-25] VITALS: Ht 170.2 cm; Wt 146.2 kg
[2020-10-25 20:20] LABS: BASOPHILS % (AUTO) 0.4 % (0-1); EOSINOPHILS # (AUTO) 0.4 X10'3 (0-0.9); EOSINOPHILS % (AUTO) 4.7 % (0-6); HEMATOCRIT 44.7 % (35.0-45.0); HEMOGLOBIN 15.4 g/dl (12.0-16.0); LYMPHOCYTES # (AUTO) 2.4 X10'3 (1.1-4.8); LYMPHOCYTES % (AUTO) 27.2 % (21-51); MEAN CORPUSCULAR HEMOGLOBIN 30.3 PG (27.0-31.0); MEAN CORPUSCULAR HGB CONC 34.5 g/dL (33.0-36.5); MEAN PLATELET VOLUME 8.4 FL (7.4-10.4); MONOCYTES # (AUTO) 0.6 X10'3 (0-0.9); MONOCYTES % (AUTO) 6.7 % (2-12); NEUTROPHILS # (AUTO) 5.3 X10'3 (1.8-7.7); PLATELET COUNT 251 X10'3 (140-440); RED BLOOD COUNT 5.07 X10'6 (4.20-5.60); WHITE BLOOD COUNT 8.8 X10'3 (4.5-11.0)
[2020-10-25 20:31] LABS: ALANINE AMINOTRANSFERASE 54 U/L (12-78); ALBUMIN 3.8 G/DL (3.4-5.0); ALKALINE PHOSPHATASE 86 IU/L (46-116); ANION GAP 11 (8-16); ASPARTATE AMINO TRANSFERASE 28 U/L (10-37); BILIRUBIN,TOTAL 0.3 MG/DL (0.1-1.0); BLOOD UREA NITROGEN 10 MG/DL (7-18); BUN/CREATININE RATIO 9.4 (6.6-38.0); CALCIUM 9.6 MG/DL (8.5-10.1); CHLORIDE 104 MMOL/L (99-107); CREATININE 1.06 MG/DL (0.40-0.90); GLUCOSE 90 MG/DL (70-104); LIPASE 115 U/L (73-393); POTASSIUM 4.1 MMOL/L (3.5-5.1); SODIUM 140 MMOL/L (135-145); TOTAL CARBON DIOXIDE 24.9 MMOL/L (24-32); TOTAL PROTEIN 7.7 G/DL (6.4-8.2); eGFR 58 ML/MIN
[2020-10-25 21:38] LABS: URINE HCG NEGATIVE (NEG)
[2020-10-25 21:42] LABS: CLARITY,URINE SLIGHTLY CLOUDY (Clear); COLOR,URINE YELLOW (Yellow); GLUCOSE, URINE NEGATIVE (Neg); KETONES,URINE NEGATIVE (Neg); LEUKOCYTE ESTERASE ,URINE NEGATIVE (Neg); NITRITES, URINE NEGATIVE (Neg); OCCULT BLOOD,URINE LARGE (Neg); PH,URINE 7.5 (4.8-8.0); PROTEIN,URINE TRACE mg/dl (Neg); UROBILINOGEN,URINE 0.2 E.U/dL (0.2-1.0)
[2020-10-25 21:48] LABS: UA COLLECTION TYPE CLN CATCH MIDSTREAM
[2020-10-25 21:49] LABS: RBC,URINE 20-50 /HPF (0-2); SQUAMOUS EPITHELIAL CELL,UR FEW /LPF (FEW); WBC,URINE 0-4 /HPF (0-4)
[2020-10-25 21:50] LABS: BACTERIA,URINE FEW /HPF (Neg); MUCUS STRANDS FEW /LPF (Neg)
[2020-10-25] MEDS ORDERED: HYDROcodone/acetaminophen 10/325mg tab PO ONE (22:40)
[2020-10-25] MEDS ORDERED: ketorolac trometh inj. 60 MG/2 ML VIAL IM ONE (22:40)
[2020-10-25] MEDS ORDERED: morphine 4 MG/ML inj SYRINge IM ONE (22:40)
[2020-10-25] MEDS ORDERED: ONDA4TAB6 PO (22:44)
[2020-10-25] MEDS ORDERED: HYDR-3972 PO (22:44)
[2020-10-25 22:58] VITALS: BP 135/91
== END 2020-10-25 23:03 | disposition home or self-care (01) ==
LOC: ER 19:49
DX: R10.2 Pelvic and perineal pain (principal); N80.9 Endometriosis, unspecified; R10.30 Lower abdominal pain, unspecified; G43.909 Migraine, unspecified, not intractable, without status migrainosus; G89.29 Other chronic pain; F41.9 Anxiety disorder, unspecified; F31.9 Bipolar disorder, unspecified; Z86.73 Personal history of transient ischemic attack (TIA), and cerebral infarction without residual deficits; Z86.69 Personal history of other diseases of the nervous system and sense organs; Z87.442 Personal history of urinary calculi; Z86.14 Personal history of Methicillin resistant Staphylococcus aureus infection; Z95.0 Presence of cardiac pacemaker; Z98.890 Other specified postprocedural states; Z56.0 Unemployment, unspecified; Z88.0 Allergy status to penicillin; Z88.8 Allergy status to other drugs, medicaments and biological substances; Z91.018 Allergy to other foods; Z79.2 Long term (current) use of antibiotics; Z79.899 Other long term (current) drug therapy
CPT/HCPCS: 36415; 80053; 81001; 81025; 83690; 85025; 96372; 99284; J1885; J2270

== ENCOUNTER 2021-02-17 21:37 | Emergency (ER) | payer MEDICARE, MEDICAID ==
[~2021-02-17] VITALS: Ht 170.2 cm; Wt 135.4 kg
--- NOTE | 2021-02-17 21:50 | NUR ---
arrived to stroke alert, pt returning from CT scan via wheelchair, is in distress with c/o OVALLE, hx per patient of [facility]. She states this is one of her most severe OVALLE, friend noticed her right face was dropping and called 911. NIHSS 1, with a facial droop that does improve with animated speaking.
--- NOTE | 2021-02-17 21:57 | NUR ---
pt just returned from ct. stroke nurse at bedside and tele neuro monitor set up in room.
--- NOTE | 2021-02-17 22:10 | NUR ---
SOC telemedicine consult by Dr. Blanco, pt is not a candidate for tPA.
[2021-02-17 22:13] LABS: BASOPHILS # (AUTO) 0.1 X10'3 (0-0.2); BASOPHILS % (AUTO) 0.7 % (0-1); EOSINOPHILS # (AUTO) 0.4 X10'3 (0-0.9); EOSINOPHILS % (AUTO) 4.6 % (0-6); HEMOGLOBIN 15.1 g/dl (12.0-16.0); LYMPHOCYTES # (AUTO) 2.7 X10'3 (1.1-4.8); LYMPHOCYTES % (AUTO) 32.4 % (21-51); MEAN CORPUSCULAR HEMOGLOBIN 29.9 PG (27.0-31.0); MEAN CORPUSCULAR HGB CONC 34.3 g/dL (33.0-36.5); MEAN CORPUSCULAR VOLUME 87.1 FL (78-98); MEAN PLATELET VOLUME 8.5 FL (7.4-10.4); MONOCYTES # (AUTO) 0.7 X10'3 (0-0.9); MONOCYTES % (AUTO) 8.7 % (2-12); NEUTROPHILS # (AUTO) 4.4 X10'3 (1.8-7.7); NEUTROPHILS % (AUTO) 53.6 % (42-75); PLATELET COUNT 267 X10'3 (140-440); RED BLOOD COUNT 5.05 X10'6 (4.20-5.60); RED CELL DISTRIBUTION WIDTH 12.9 % (11.5-14.5); WHITE BLOOD COUNT 8.3 X10'3 (4.5-11.0)
[2021-02-17 22:25] LABS: PARTIAL THROMBOPLASTIN TIME 25 SECONDS (22-32)
[2021-02-17 22:28] LABS: ALANINE AMINOTRANSFERASE 86 U/L (12-78); ALBUMIN 3.8 G/DL (3.4-5.0); ALBUMIN/GLOBULIN RATIO 1.1 (1.1-1.5); ALKALINE PHOSPHATASE 87 IU/L (46-116); ANION GAP 10 (8-16); ASPARTATE AMINO TRANSFERASE 40 U/L (10-37); BILIRUBIN,TOTAL 0.2 MG/DL (0.1-1.0); BLOOD UREA NITROGEN 13 MG/DL (7-18); BUN/CREATININE RATIO 12.9 (6.6-38.0); CALCIUM 8.9 MG/DL (8.5-10.1); CHLORIDE 105 MMOL/L (99-107); CREATININE 1.01 MG/DL (0.40-0.90); GLUCOSE 123 MG/DL (70-104); POTASSIUM 4.2 MMOL/L (3.5-5.1); SODIUM 142 MMOL/L (135-145); TOTAL CARBON DIOXIDE 26.8 MMOL/L (24-32); TOTAL PROTEIN 7.2 G/DL (6.4-8.2); eGFR 61 ML/MIN
[2021-02-17 22:30] LABS: TROPONIN I < 0.04 NG/ML (0.0-0.05)
[2021-02-17] MEDS: proCHLORperazine 10 MG/2 ml inj IV ONE ×2 (22:34→22:39)
[2021-02-17] MEDS ORDERED: diphenhydrAMINE 50 mg/ml inj IV ONE (22:45)
[2021-02-17] MEDS ORDERED: ondansetron/PF 4mg/2ml inj IV ONE (22:50)
--- NOTE | 2021-02-17 22:58 | NUR ---
DR BOYER UPDATED OF ADVERSE REACTION TO COMPLAZINE. BENEDRYL AND ZOFRAN NOW ORDERED IV FOR MIGRAIN PAIN AND NAUSEA. STABLE VS. PT NOW WITH NO FURTHER TINGLING FROM RECEIVING THE COMPAZINE.
[2021-02-17 23:06] VITALS: BP 122/63
== END 2021-02-18 00:41 | disposition home or self-care (01) ==
LOC: ER 21:37
DX: G43.909 Migraine, unspecified, not intractable, without status migrainosus (principal); G89.29 Other chronic pain; F41.9 Anxiety disorder, unspecified; F31.9 Bipolar disorder, unspecified; Z86.73 Personal history of transient ischemic attack (TIA), and cerebral infarction without residual deficits; Z86.69 Personal history of other diseases of the nervous system and sense organs; Z87.442 Personal history of urinary calculi; Z86.14 Personal history of Methicillin resistant Staphylococcus aureus infection; Z20.9 Contact with and (suspected) exposure to unspecified communicable disease; Z95.0 Presence of cardiac pacemaker; Z56.0 Unemployment, unspecified; Z88.0 Allergy status to penicillin; Z88.8 Allergy status to other drugs, medicaments and biological substances; Z91.018 Allergy to other foods; Z79.2 Long term (current) use of antibiotics; Z79.899 Other long term (current) drug therapy
CPT/HCPCS: 36415; 70450; 71045; 80053; 82948; 84484; 85025; 85610; 85730; 93005; 96374; 96375; 99285; J0780; J1200; J2405

== ENCOUNTER 2021-05-19 16:14 | Emergency (ER) | payer MEDICARE, MEDICAID ==
[~2021-05-19] VITALS: Ht 170.2 cm; Wt 138.6 kg
[2021-05-19 17:06] LABS: URINE HCG NEGATIVE (NEG)
[2021-05-19 17:07] LABS: UA COLLECTION TYPE CLN CATCH MIDSTREAM
[2021-05-19 17:08] LABS: CLARITY,URINE CLOUDY (Clear); COLOR,URINE DARK YELLOW (Yellow); GLUCOSE, URINE NEGATIVE (Neg); KETONES,URINE TRACE mg/dl (Neg); NITRITES, URINE NEGATIVE (Neg); OCCULT BLOOD,URINE NEGATIVE (Neg); PROTEIN,URINE TRACE mg/dl (Neg)
[2021-05-19 17:09] LABS: LEUKOCYTE ESTERASE ,URINE NEGATIVE (Neg); UROBILINOGEN,URINE 0.2 E.U/dL (0.2-1.0)
[2021-05-19 17:11] LABS: BASOPHILS % (AUTO) 0.3 % (0-1); EOSINOPHILS # (AUTO) 0.4 X10'3 (0-0.9); EOSINOPHILS % (AUTO) 2.9 % (0-6); HEMATOCRIT 47.1 % (35.0-45.0); LYMPHOCYTES # (AUTO) 3.2 X10'3 (1.1-4.8); LYMPHOCYTES % (AUTO) 25.9 % (21-51); MEAN CORPUSCULAR HEMOGLOBIN 29.7 PG (27.0-31.0); MEAN CORPUSCULAR HGB CONC 34.1 g/dL (33.0-36.5); MEAN CORPUSCULAR VOLUME 87.2 FL (78-98); MEAN PLATELET VOLUME 8.7 FL (7.4-10.4); MONOCYTES # (AUTO) 1.1 X10'3 (0-0.9); MONOCYTES % (AUTO) 8.7 % (2-12); NEUTROPHILS # (AUTO) 7.7 X10'3 (1.8-7.7); NEUTROPHILS % (AUTO) 62.2 % (42-75); PLATELET COUNT 311 X10'3 (140-440); RED CELL DISTRIBUTION WIDTH 12.8 % (11.5-14.5); WHITE BLOOD COUNT 12.3 X10'3 (4.5-11.0)
[2021-05-19 17:21] LABS: ALANINE AMINOTRANSFERASE 72 U/L (12-78); ALBUMIN 4.2 G/DL (3.4-5.0); ALKALINE PHOSPHATASE 87 IU/L (46-116); AMYLASE 55 U/L (25-115); ANION GAP 13 (8-16); ASPARTATE AMINO TRANSFERASE 32 U/L (10-37); BILIRUBIN,TOTAL 0.4 MG/DL (0.1-1.0); BLOOD UREA NITROGEN 16 MG/DL (7-18); BUN/CREATININE RATIO 14.4 (6.6-38.0); CALCIUM 9.6 MG/DL (8.5-10.1); CHLORIDE 104 MMOL/L (99-107); CREATININE 1.11 MG/DL (0.40-0.90); GLUCOSE 111 MG/DL (70-104); LIPASE 194 U/L (73-393); POTASSIUM 4.1 MMOL/L (3.5-5.1); SODIUM 142 MMOL/L (135-145); TOTAL CARBON DIOXIDE 24.8 MMOL/L (24-32); TOTAL PROTEIN 8.4 G/DL (6.4-8.2); eGFR 55 ML/MIN
[2021-05-19 17:26] LABS: BACTERIA,URINE 3+ /HPF (Neg); MUCUS STRANDS MANY /LPF (Neg); RBC,URINE 0-2 /HPF (0-2); SQUAMOUS EPITHELIAL CELL,UR MANY /LPF (FEW); WBC,URINE 0-4 /HPF (0-4); YEAST FEW /HPF (NEGATIVE)
[2021-05-19] MEDS ORDERED: HYDROcodone/acetaminophen 5mg/325mg tablet PO ONE (20:30)
[2021-05-19] MEDS ORDERED: ondansetron 4mg rapidly disintigrating tab PO ONE (20:30)
[2021-05-19] MEDS ORDERED: ONDA4TAB6 PO (21:45)
[2021-05-19 21:57] VITALS: BP 123/89
== END 2021-05-19 21:59 | disposition home or self-care (01) ==
LOC: ER 16:14
DX: R10.11 Right upper quadrant pain (principal); R11.2 Nausea with vomiting, unspecified; G43.909 Migraine, unspecified, not intractable, without status migrainosus; G89.29 Other chronic pain; F41.9 Anxiety disorder, unspecified; F31.9 Bipolar disorder, unspecified; F20.9 Schizophrenia, unspecified; Z86.73 Personal history of transient ischemic attack (TIA), and cerebral infarction without residual deficits; Z87.442 Personal history of urinary calculi; Z86.14 Personal history of Methicillin resistant Staphylococcus aureus infection; Z95.0 Presence of cardiac pacemaker; Z98.890 Other specified postprocedural states; Z56.0 Unemployment, unspecified; Z88.0 Allergy status to penicillin; Z88.8 Allergy status to other drugs, medicaments and biological substances; Z91.018 Allergy to other foods; Z88.2 Allergy status to sulfonamides; Z79.2 Long term (current) use of antibiotics; Z79.899 Other long term (current) drug therapy
CPT/HCPCS: 36415; 76700; 80053; 81001; 81025; 82150; 83690; 85025; 99284

== ENCOUNTER 2021-05-26 18:16 | Emergency (ER) | payer MEDICARE, MEDICAID ==
[~2021-05-26] VITALS: Ht 170.2 cm; Wt 146.8 kg
[2021-05-26 19:03] LABS: BASOPHILS % (AUTO) 0.5 % (0-1); EOSINOPHILS # (AUTO) 0.2 X10'3 (0-0.9); EOSINOPHILS % (AUTO) 2.1 % (0-6); HEMATOCRIT 45.3 % (35.0-45.0); HEMOGLOBIN 15.7 g/dl (12.0-16.0); LYMPHOCYTES # (AUTO) 2.1 X10'3 (1.1-4.8); LYMPHOCYTES % (AUTO) 22.6 % (21-51); MEAN CORPUSCULAR HGB CONC 34.6 g/dL (33.0-36.5); MEAN CORPUSCULAR VOLUME 86.8 FL (78-98); MEAN PLATELET VOLUME 8.6 FL (7.4-10.4); MONOCYTES # (AUTO) 0.8 X10'3 (0-0.9); MONOCYTES % (AUTO) 8.5 % (2-12); NEUTROPHILS # (AUTO) 6.3 X10'3 (1.8-7.7); NEUTROPHILS % (AUTO) 66.3 % (42-75); PLATELET COUNT 307 X10'3 (140-440); RED BLOOD COUNT 5.22 X10'6 (4.20-5.60); RED CELL DISTRIBUTION WIDTH 12.8 % (11.5-14.5); WHITE BLOOD COUNT 9.5 X10'3 (4.5-11.0)
[2021-05-26 19:06] LABS: CLARITY,URINE CLEAR (Clear); COLOR,URINE YELLOW (Yellow); GLUCOSE, URINE NEGATIVE (Neg); KETONES,URINE NEGATIVE (Neg); LEUKOCYTE ESTERASE ,URINE NEGATIVE (Neg); NITRITES, URINE NEGATIVE (Neg); OCCULT BLOOD,URINE TRACE-INTACT (Neg); PH,URINE 5.5 (4.8-8.0); PROTEIN,URINE NEGATIVE (Neg); URINE HCG NEGATIVE (NEG); UROBILINOGEN,URINE 0.2 E.U/dL (0.2-1.0)
[2021-05-26 19:19] LABS: ALANINE AMINOTRANSFERASE 80 U/L (12-78); ALBUMIN/GLOBULIN RATIO 1.1 (1.1-1.5); ALKALINE PHOSPHATASE 86 IU/L (46-116); ANION GAP 13 (8-16); ASPARTATE AMINO TRANSFERASE 41 U/L (10-37); BILIRUBIN,TOTAL 0.3 MG/DL (0.1-1.0); BLOOD UREA NITROGEN 10 MG/DL (7-18); BUN/CREATININE RATIO 8.3 (6.6-38.0); CALCIUM 9.5 MG/DL (8.5-10.1); CHLORIDE 107 MMOL/L (99-107); CREATININE 1.21 MG/DL (0.40-0.90); GLUCOSE 97 MG/DL (70-104); LIPASE 108 U/L (73-393); SODIUM 145 MMOL/L (135-145); TOTAL CARBON DIOXIDE 24.9 MMOL/L (24-32); TOTAL PROTEIN 7.8 G/DL (6.4-8.2); eGFR 50 ML/MIN
[2021-05-26 19:39] LABS: UA COLLECTION TYPE CLN CATCH MIDSTREAM
[2021-05-26 19:41] LABS: BACTERIA,URINE FEW /HPF (Neg); MUCUS STRANDS FEW /LPF (Neg); RBC,URINE 0-2 /HPF (0-2); SQUAMOUS EPITHELIAL CELL,UR FEW /LPF (FEW); WBC,URINE 0-4 /HPF (0-4)
[2021-05-26] MEDS: acetaminophen 325mg tablet PO ONE (20:26)
[2021-05-26] MEDS ORDERED: iohexol 300mg/ml 100ml inj. ONE (20:53)
[2021-05-26] MEDS: morphine 2 MG/ML inj. syringe IV ONE (21:15)
[2021-05-26] MEDS: ondansetron/PF 4mg/2ml inj IV ONE (21:16)
[2021-05-26] MEDS: ringers solution, lactated 1000ml IV soln IV ONE (21:16)
[2021-05-26] MEDS: diphenhydrAMINE 50 mg/ml inj IV ONE (21:47)
[2021-05-26 22:00] VITALS: BP 131/73
[2021-05-26] MEDS: famotidine/PF 10 mg/ml inj IV ONE (22:30)
== END 2021-05-26 23:20 | disposition home or self-care (01) ==
LOC: ER 18:17
DX: K76.0 Fatty (change of) liver, not elsewhere classified (principal); R10.11 Right upper quadrant pain; R11.2 Nausea with vomiting, unspecified; G43.909 Migraine, unspecified, not intractable, without status migrainosus; G89.29 Other chronic pain; F41.9 Anxiety disorder, unspecified; F31.9 Bipolar disorder, unspecified; F20.9 Schizophrenia, unspecified; Z86.73 Personal history of transient ischemic attack (TIA), and cerebral infarction without residual deficits; Z86.69 Personal history of other diseases of the nervous system and sense organs; Z87.442 Personal history of urinary calculi; Z86.14 Personal history of Methicillin resistant Staphylococcus aureus infection; Z95.0 Presence of cardiac pacemaker; Z98.890 Other specified postprocedural states; Z56.0 Unemployment, unspecified; Z88.0 Allergy status to penicillin; Z88.8 Allergy status to other drugs, medicaments and biological substances; Z91.018 Allergy to other foods; Z79.2 Long term (current) use of antibiotics; Z79.899 Other long term (current) drug therapy
CPT/HCPCS: 36415; 74176; 76700; 80053; 81001; 81025; 83690; 85025; 96374; 96375; 99285; J1200; J2270; J2405; J3490; J7120; Q9967

== ENCOUNTER 2021-05-29 17:01 | Emergency (ER) | payer MEDICARE, MEDICAID ==
[~2021-05-29] VITALS: Ht 170.2 cm; Wt 146.0 kg
[2021-05-29 17:40] LABS: BASOPHILS % (AUTO) 0.5 % (0-1); EOSINOPHILS # (AUTO) 0.3 X10'3 (0-0.9); EOSINOPHILS % (AUTO) 3.9 % (0-6); HEMATOCRIT 44.1 % (35.0-45.0); HEMOGLOBIN 15.5 g/dl (12.0-16.0); LYMPHOCYTES # (AUTO) 2.4 X10'3 (1.1-4.8); LYMPHOCYTES % (AUTO) 26.5 % (21-51); MEAN CORPUSCULAR HEMOGLOBIN 30.1 PG (27.0-31.0); MEAN CORPUSCULAR HGB CONC 35.1 g/dL (33.0-36.5); MEAN CORPUSCULAR VOLUME 85.9 FL (78-98); MEAN PLATELET VOLUME 8.4 FL (7.4-10.4); MONOCYTES # (AUTO) 0.7 X10'3 (0-0.9); MONOCYTES % (AUTO) 7.3 % (2-12); NEUTROPHILS # (AUTO) 5.5 X10'3 (1.8-7.7); NEUTROPHILS % (AUTO) 61.8 % (42-75); PLATELET COUNT 292 X10'3 (140-440); RED BLOOD COUNT 5.13 X10'6 (4.20-5.60); RED CELL DISTRIBUTION WIDTH 12.6 % (11.5-14.5); WHITE BLOOD COUNT 8.9 X10'3 (4.5-11.0)
[2021-05-29 17:52] LABS: ALANINE AMINOTRANSFERASE 75 U/L (12-78); ALBUMIN/GLOBULIN RATIO 1.1 (1.1-1.5); ALKALINE PHOSPHATASE 89 IU/L (46-116); ANION GAP 13 (8-16); ASPARTATE AMINO TRANSFERASE 26 U/L (10-37); BILIRUBIN,TOTAL 0.3 MG/DL (0.1-1.0); BLOOD UREA NITROGEN 10 MG/DL (7-18); BUN/CREATININE RATIO 10.3 (6.6-38.0); CHLORIDE 103 MMOL/L (99-107); CREATININE 0.97 MG/DL (0.40-0.90); GLUCOSE 95 MG/DL (70-104); LIPASE 100 U/L (73-393); POTASSIUM 4.1 MMOL/L (3.5-5.1); SODIUM 139 MMOL/L (135-145); TOTAL CARBON DIOXIDE 23.4 MMOL/L (24-32); TOTAL PROTEIN 7.8 G/DL (6.4-8.2); eGFR 64 ML/MIN
[2021-05-29] MEDS ORDERED: normal saline 1000ml 1,000 ML IVB ONE (18:20)
[2021-05-29] MEDS ORDERED: ondansetron/PF 4mg/2ml inj IV ONE (18:20)
[2021-05-29 18:54] LABS: URINE HCG NEGATIVE (NEG)
[2021-05-29 18:59] LABS: COLOR,URINE YELLOW (Yellow); GLUCOSE, URINE NEGATIVE (Neg); KETONES,URINE NEGATIVE (Neg); LEUKOCYTE ESTERASE ,URINE NEGATIVE (Neg); NITRITES, URINE NEGATIVE (Neg); OCCULT BLOOD,URINE LARGE (Neg); PROTEIN,URINE 30 mg/dl (Neg)
[2021-05-29 19:10] LABS: UA COLLECTION TYPE CLN CATCH MIDSTREAM
[2021-05-29 19:11] LABS: CLARITY,URINE SLIGHTLY CLOUDY (Clear)
[2021-05-29 19:12] LABS: BACTERIA,URINE NONE SEEN /HPF (Neg); MUCUS STRANDS FEW /LPF (Neg); SQUAMOUS EPITHELIAL CELL,UR FEW /LPF (FEW); WBC,URINE 0-4 /HPF (0-4)
[2021-05-29] MEDS ORDERED: diphenhydrAMINE 50 mg/ml inj IV ONE (19:25)
[2021-05-29] MEDS ORDERED: morphine 2 MG/ML inj. syringe IV ONE (19:25)
[2021-05-29] MEDS ORDERED: proCHLORperazine 10 MG/2 ml inj IV ONE (19:40)
[2021-05-29] MEDS ORDERED: PROM25SU9 RC (20:59)
[2021-05-29 21:41] VITALS: BP 137/77
== END 2021-05-29 21:43 | disposition home or self-care (01) ==
LOC: ER 17:02
DX: R11.2 Nausea with vomiting, unspecified (principal); R10.11 Right upper quadrant pain; K76.0 Fatty (change of) liver, not elsewhere classified; G40.909 Epilepsy, unspecified, not intractable, without status epilepticus; Z95.0 Presence of cardiac pacemaker; G43.909 Migraine, unspecified, not intractable, without status migrainosus; G89.29 Other chronic pain; Z86.14 Personal history of Methicillin resistant Staphylococcus aureus infection; Z86.72 Personal history of thrombophlebitis; Z86.19 Personal history of other infectious and parasitic diseases; Z56.0 Unemployment, unspecified; Z88.8 Allergy status to other drugs, medicaments and biological substances; Z79.2 Long term (current) use of antibiotics; Z79.899 Other long term (current) drug therapy; Z88.0 Allergy status to penicillin; Z91.018 Allergy to other foods; Z91.041 Radiographic dye allergy status; Z95.5 Presence of coronary angioplasty implant and graft
CPT/HCPCS: 36415; 80053; 81001; 81025; 83690; 85025; 96361; 96374; 96375; 99284; J0780; J1200; J2270; J2405; J7030

== ENCOUNTER 2021-05-30 17:25 | Emergency (ER) | payer MEDICARE, MEDICAID ==
[~2021-05-30] VITALS: Ht 170.2 cm; Wt 135.4 kg
[~2021-05-30 17:25] MED LIST changes: +PROM25SU9 RC
[2021-05-30 19:11] LABS: BASOPHILS # (AUTO) 0.1 X10'3 (0-0.2); BASOPHILS % (AUTO) 0.8 % (0-1); EOSINOPHILS # (AUTO) 0.3 X10'3 (0-0.9); EOSINOPHILS % (AUTO) 4.2 % (0-6); HEMOGLOBIN 16.1 g/dl (12.0-16.0); LYMPHOCYTES # (AUTO) 2.1 X10'3 (1.1-4.8); MEAN CORPUSCULAR HEMOGLOBIN 29.9 PG (27.0-31.0); MEAN CORPUSCULAR HGB CONC 34.4 g/dL (33.0-36.5); MEAN CORPUSCULAR VOLUME 86.9 FL (78-98); MEAN PLATELET VOLUME 8.4 FL (7.4-10.4); MONOCYTES # (AUTO) 0.5 X10'3 (0-0.9); MONOCYTES % (AUTO) 6.6 % (2-12); NEUTROPHILS % (AUTO) 62.4 % (42-75); PLATELET COUNT 291 X10'3 (140-440); RED BLOOD COUNT 5.41 X10'6 (4.20-5.60); WHITE BLOOD COUNT 7.9 X10'3 (4.5-11.0)
[2021-05-30 19:26] LABS: ALANINE AMINOTRANSFERASE 89 U/L (12-78); ALBUMIN 4.3 G/DL (3.4-5.0); ALBUMIN/GLOBULIN RATIO 1.1 (1.1-1.5); ALKALINE PHOSPHATASE 95 IU/L (46-116); ANION GAP 10 (8-16); ASPARTATE AMINO TRANSFERASE 33 U/L (10-37); BILIRUBIN,TOTAL 0.3 MG/DL (0.1-1.0); BLOOD UREA NITROGEN 9 MG/DL (7-18); BUN/CREATININE RATIO 8.9 (6.6-38.0); CALCIUM 9.5 MG/DL (8.5-10.1); CHLORIDE 104 MMOL/L (99-107); CREATININE 1.01 MG/DL (0.40-0.90); GLUCOSE 95 MG/DL (70-104); LIPASE 117 U/L (73-393); POTASSIUM 4.2 MMOL/L (3.5-5.1); SODIUM 139 MMOL/L (135-145); TOTAL CARBON DIOXIDE 24.8 MMOL/L (24-32); TOTAL PROTEIN 8.3 G/DL (6.4-8.2); eGFR 61 ML/MIN
[2021-05-30 20:39] LABS: TOTAL CELLS COUNTED 100
[2021-05-30 20:40] LABS: PLATELET ESTIMATE NORMAL
[2021-05-30] MEDS ORDERED: iohexol 300mg/ml 100ml inj. ONE (22:44)
[2021-05-31] MEDS ORDERED: OMEP40CA21 PO (00:43)
[2021-05-31] MEDS ORDERED: SUCR1TAB PO (00:43)
[2021-05-31 00:55] VITALS: BP 153/104
== END 2021-05-31 01:00 | disposition home or self-care (01) ==
LOC: ER 17:26
DX: R10.11 Right upper quadrant pain (principal); R19.7 Diarrhea, unspecified; G89.29 Other chronic pain; G40.909 Epilepsy, unspecified, not intractable, without status epilepticus; G43.909 Migraine, unspecified, not intractable, without status migrainosus; Z86.14 Personal history of Methicillin resistant Staphylococcus aureus infection; Z86.19 Personal history of other infectious and parasitic diseases; Z86.73 Personal history of transient ischemic attack (TIA), and cerebral infarction without residual deficits; Z56.0 Unemployment, unspecified; Z95.5 Presence of coronary angioplasty implant and graft; Z95.0 Presence of cardiac pacemaker; Z88.8 Allergy status to other drugs, medicaments and biological substances; Z91.041 Radiographic dye allergy status; Z91.018 Allergy to other foods; Z88.0 Allergy status to penicillin; Z79.899 Other long term (current) drug therapy
CPT/HCPCS: 36415; 74176; 80053; 83690; 85007; 85025; 99284; 99285; Q9967

== ENCOUNTER 2021-06-27 12:18 | Emergency (ER) | payer MEDICARE, MEDICAID ==
[~2021-06-27] VITALS: Ht 170.2 cm; Wt 143.2 kg
[~2021-06-27 12:18] MED LIST changes: +OMEP40CA21 PO; +SUCR1TAB PO
[2021-06-27 12:57] VITALS: BP 178/79
[2021-06-27 13:36] LABS: BASOPHILS % (AUTO) 0.4 % (0-1); EOSINOPHILS # (AUTO) 0.4 X10'3 (0-0.9); EOSINOPHILS % (AUTO) 4.6 % (0-6); HEMATOCRIT 43.4 % (35.0-45.0); LYMPHOCYTES # (AUTO) 2.4 X10'3 (1.1-4.8); LYMPHOCYTES % (AUTO) 25.2 % (21-51); MEAN CORPUSCULAR HGB CONC 34.5 g/dL (33.0-36.5); MEAN CORPUSCULAR VOLUME 87.1 FL (78-98); MEAN PLATELET VOLUME 8.3 FL (7.4-10.4); MONOCYTES # (AUTO) 0.8 X10'3 (0-0.9); MONOCYTES % (AUTO) 8.3 % (2-12); NEUTROPHILS # (AUTO) 5.8 X10'3 (1.8-7.7); NEUTROPHILS % (AUTO) 61.5 % (42-75); PLATELET COUNT 275 X10'3 (140-440); RED BLOOD COUNT 4.98 X10'6 (4.20-5.60); RED CELL DISTRIBUTION WIDTH 12.7 % (11.5-14.5); WHITE BLOOD COUNT 9.4 X10'3 (4.5-11.0)
[2021-06-27 13:50] LABS: ALANINE AMINOTRANSFERASE 61 U/L (12-78); ALBUMIN 3.8 G/DL (3.4-5.0); ALKALINE PHOSPHATASE 83 IU/L (46-116); ANION GAP 10 (8-16); ASPARTATE AMINO TRANSFERASE 24 U/L (10-37); BILIRUBIN,TOTAL 0.2 MG/DL (0.1-1.0); BLOOD UREA NITROGEN 12 MG/DL (7-18); BUN/CREATININE RATIO 13.5 (6.6-38.0); CALCIUM 9.5 MG/DL (8.5-10.1); CHLORIDE 106 MMOL/L (99-107); CREATININE 0.89 MG/DL (0.40-0.90); GLUCOSE 96 MG/DL (70-104); LIPASE 129 U/L (73-393); POTASSIUM 4.4 MMOL/L (3.5-5.1); SODIUM 138 MMOL/L (135-145); TOTAL CARBON DIOXIDE 21.7 MMOL/L (24-32); TOTAL PROTEIN 7.6 G/DL (6.4-8.2); eGFR 71 ML/MIN
== END 2021-06-27 20:45 | disposition left against medical advice (07) ==
LOC: ER 12:19
DX: R10.9 Unspecified abdominal pain (principal); Z53.21 Procedure and treatment not carried out due to patient leaving prior to being seen by health care provider
CPT/HCPCS: 80053; 83690; 85025

== ENCOUNTER 2021-07-26 17:33 | Emergency (ER) | payer MEDICARE, MEDICAID ==
[~2021-07-26] VITALS: Ht 170.2 cm; Wt 140.0 kg
[~2021-07-26 17:33] MED LIST changes: -OMEP40CA21 PO
[2021-07-26 17:45] VITALS: BP 152/75
[2021-07-28] MEDS ORDERED: SULF1TAB49 PO (19:16)
== END 2021-07-27 00:43 | disposition left against medical advice (07) ==
LOC: ER 17:34
DX: M54.50 Low back pain, unspecified (principal); R20.0 Anesthesia of skin; R20.2 Paresthesia of skin; G43.909 Migraine, unspecified, not intractable, without status migrainosus; G40.909 Epilepsy, unspecified, not intractable, without status epilepticus; G89.29 Other chronic pain; Z86.73 Personal history of transient ischemic attack (TIA), and cerebral infarction without residual deficits; Z86.19 Personal history of other infectious and parasitic diseases; Z87.442 Personal history of urinary calculi; Z95.5 Presence of coronary angioplasty implant and graft; Z95.0 Presence of cardiac pacemaker; Z56.0 Unemployment, unspecified; Z91.018 Allergy to other foods; Z88.2 Allergy status to sulfonamides; Z88.8 Allergy status to other drugs, medicaments and biological substances; Z79.899 Other long term (current) drug therapy; Z79.2 Long term (current) use of antibiotics; Z91.041 Radiographic dye allergy status
CPT/HCPCS: 99281

== ENCOUNTER 2021-07-27 16:26 | Emergency (ER) | payer MEDICARE, MEDICAID ==
[2021-07-28] MEDS ORDERED: SULF1TAB49 PO (19:16)
== END 2021-07-27 19:03 | disposition left against medical advice (07) ==
LOC: ER 16:27
DX: M25.559 Pain in unspecified hip (principal); Z53.21 Procedure and treatment not carried out due to patient leaving prior to being seen by health care provider

== ENCOUNTER 2021-07-28 11:14 | Emergency (ER) | payer MEDICARE, MEDICAID ==
[~2021-07-28] VITALS: Ht 170.2 cm; Wt 140.0 kg
[2021-07-28 12:37] VITALS: BP 142/87
[2021-07-28 13:53] LABS: BASOPHILS % (AUTO) 0.4 % (0-1); EOSINOPHILS # (AUTO) 0.4 X10'3 (0-0.9); HEMATOCRIT 47.4 % (35.0-45.0); HEMOGLOBIN 15.9 g/dl (12.0-16.0); LYMPHOCYTES # (AUTO) 1.8 X10'3 (1.1-4.8); LYMPHOCYTES % (AUTO) 15.3 % (21-51); MEAN CORPUSCULAR HEMOGLOBIN 29.7 PG (27.0-31.0); MEAN CORPUSCULAR HGB CONC 33.7 g/dL (33.0-36.5); MEAN CORPUSCULAR VOLUME 88.2 FL (78-98); MEAN PLATELET VOLUME 8.7 FL (7.4-10.4); MONOCYTES # (AUTO) 0.9 X10'3 (0-0.9); MONOCYTES % (AUTO) 7.8 % (2-12); NEUTROPHILS # (AUTO) 8.8 X10'3 (1.8-7.7); NEUTROPHILS % (AUTO) 73.5 % (42-75); PLATELET COUNT 290 X10'3 (140-440); RED BLOOD COUNT 5.37 X10'6 (4.20-5.60); RED CELL DISTRIBUTION WIDTH 13.2 % (11.5-14.5)
[2021-07-28 14:08] LABS: ALANINE AMINOTRANSFERASE 52 U/L (12-78); ALBUMIN 4.3 G/DL (3.4-5.0); ALKALINE PHOSPHATASE 89 IU/L (46-116); ANION GAP 8 (8-16); ASPARTATE AMINO TRANSFERASE 23 U/L (10-37); BILIRUBIN,TOTAL 0.2 MG/DL (0.1-1.0); BLOOD UREA NITROGEN 15 MG/DL (7-18); CALCIUM 9.9 MG/DL (8.5-10.1); CHLORIDE 105 MMOL/L (99-107); CREATININE 0.94 MG/DL (0.40-0.90); GLUCOSE 108 MG/DL (70-104); POTASSIUM 4.4 MMOL/L (3.5-5.1); SODIUM 141 MMOL/L (135-145); TOTAL CARBON DIOXIDE 28.2 MMOL/L (24-32); TOTAL PROTEIN 8.7 G/DL (6.4-8.2); eGFR 66 ML/MIN
[2021-07-28] MEDS ORDERED: sulfamethoxazole/trimethoprim DS (800/160mg) tablet PO ONE (19:15)
[2021-07-28] MEDS ORDERED: HYDROcodone/acetaminophen 10/325mg tab PO ONE (19:15)
[2021-07-28] MEDS ORDERED: SULF1TAB49 PO (19:16)
== END 2021-07-28 19:58 | disposition home or self-care (01) ==
LOC: ER 11:17
DX: L02.31 Cutaneous abscess of buttock (principal); G43.909 Migraine, unspecified, not intractable, without status migrainosus; G40.909 Epilepsy, unspecified, not intractable, without status epilepticus; G89.29 Other chronic pain; Z86.19 Personal history of other infectious and parasitic diseases; Z86.73 Personal history of transient ischemic attack (TIA), and cerebral infarction without residual deficits; Z95.5 Presence of coronary angioplasty implant and graft; Z95.0 Presence of cardiac pacemaker; Z56.0 Unemployment, unspecified; Z88.0 Allergy status to penicillin; Z91.014 Allergy to mammalian meats; Z91.018 Allergy to other foods; Z88.8 Allergy status to other drugs, medicaments and biological substances; Z79.899 Other long term (current) drug therapy; Z79.2 Long term (current) use of antibiotics
CPT/HCPCS: 36415; 80053; 83605; 84145; 85025; 87040; 99283

== ENCOUNTER 2021-09-04 15:55 | Emergency (ER) | payer MEDICARE, MEDICAID ==
[~2021-09-04] VITALS: Ht 170.2 cm; Wt 165.0 kg
[2021-09-04 16:05] VITALS: BP 164/89
[2021-09-04 16:42] LABS: BASOPHILS % (AUTO) 0.6 % (0-1); EOSINOPHILS # (AUTO) 0.5 X10'3 (0-0.9); EOSINOPHILS % (AUTO) 7.6 % (0-6); HEMATOCRIT 43.8 % (35.0-45.0); HEMOGLOBIN 14.8 g/dl (12.0-16.0); LYMPHOCYTES # (AUTO) 2.2 X10'3 (1.1-4.8); LYMPHOCYTES % (AUTO) 30.3 % (21-51); MEAN CORPUSCULAR HEMOGLOBIN 29.7 PG (27.0-31.0); MEAN CORPUSCULAR HGB CONC 33.9 g/dL (33.0-36.5); MEAN CORPUSCULAR VOLUME 87.7 FL (78-98); MEAN PLATELET VOLUME 8.6 FL (7.4-10.4); MONOCYTES # (AUTO) 0.6 X10'3 (0-0.9); MONOCYTES % (AUTO) 8.7 % (2-12); NEUTROPHILS # (AUTO) 3.8 X10'3 (1.8-7.7); NEUTROPHILS % (AUTO) 52.8 % (42-75); PLATELET COUNT 271 X10'3 (140-440); RED BLOOD COUNT 4.99 X10'6 (4.20-5.60); WHITE BLOOD COUNT 7.2 X10'3 (4.5-11.0)
[2021-09-04 19:07] LABS: ALANINE AMINOTRANSFERASE 71 U/L (12-78); ALBUMIN 3.8 G/DL (3.4-5.0); ALKALINE PHOSPHATASE 99 IU/L (46-116); ANION GAP 10 (8-16); ASPARTATE AMINO TRANSFERASE 33 U/L (10-37); BILIRUBIN,TOTAL 0.1 MG/DL (0.1-1.0); BLOOD UREA NITROGEN 11 MG/DL (7-18); BUN/CREATININE RATIO 13.1 (6.6-38.0); CALCIUM 9.4 MG/DL (8.5-10.1); CHLORIDE 104 MMOL/L (99-107); CREATININE 0.84 MG/DL (0.40-0.90); GLUCOSE 99 MG/DL (70-104); POTASSIUM 4.4 MMOL/L (3.5-5.1); SODIUM 142 MMOL/L (135-145); TOTAL CARBON DIOXIDE 27.8 MMOL/L (24-32); TOTAL PROTEIN 7.8 G/DL (6.4-8.2); VALPROATE 46 UG/ML (50-100); eGFR 75 ML/MIN
== END 2021-09-04 19:54 | disposition home or self-care (01) ==
LOC: ER 15:56
DX: R55 Syncope and collapse (principal); R11.0 Nausea; R53.83 Other fatigue; G43.909 Migraine, unspecified, not intractable, without status migrainosus; G89.29 Other chronic pain; Z86.73 Personal history of transient ischemic attack (TIA), and cerebral infarction without residual deficits; Z86.19 Personal history of other infectious and parasitic diseases; Z86.14 Personal history of Methicillin resistant Staphylococcus aureus infection; Z95.0 Presence of cardiac pacemaker; Z95.5 Presence of coronary angioplasty implant and graft; Z59.00 Homelessness unspecified; Z88.0 Allergy status to penicillin; Z91.041 Radiographic dye allergy status; Z91.018 Allergy to other foods; Z88.8 Allergy status to other drugs, medicaments and biological substances; Z79.2 Long term (current) use of antibiotics; Z79.899 Other long term (current) drug therapy
CPT/HCPCS: 36415; 71045; 80053; 80164; 84484; 85025; 93005; 99285

== ENCOUNTER 2021-09-22 10:13 | Emergency (ER) | payer MEDICARE, MEDICAID ==
[~2021-09-22] VITALS: Ht 170.2 cm; Wt 148.6 kg
[2021-09-22 10:47] LABS: CLARITY,URINE CLEAR (Clear); COLOR,URINE YELLOW (Yellow); GLUCOSE, URINE NEGATIVE (Neg); KETONES,URINE NEGATIVE (Neg); LEUKOCYTE ESTERASE ,URINE NEGATIVE (Neg); NITRITES, URINE NEGATIVE (Neg); OCCULT BLOOD,URINE NEGATIVE (Neg); PROTEIN,URINE NEGATIVE (Neg); UROBILINOGEN,URINE 0.2 E.U/dL (0.2-1.0)
[2021-09-22 10:50] LABS: URINE HCG NEGATIVE (NEG)
[2021-09-22 10:53] LABS: UA COLLECTION TYPE CLN CATCH MIDSTREAM
[2021-09-22] MEDS ORDERED: HYDR-3965 PO (11:01)
[2021-09-22] MEDS: HYDROcodone/acetaminophen 5mg/325mg tablet PO ONE (11:24)
[2021-09-22] MEDS: ketorolac trometh inj. 60 MG/2 ML VIAL IM ONE (11:25)
[2021-09-22 11:36] VITALS: BP 142/88
--- NOTE | 2021-09-22 11:37 | NUR ---
Pt given and understands d/c instructions. Ambulatory with a steady gait.
== END 2021-09-22 11:38 | disposition home or self-care (01) ==
LOC: ER 10:14
DX: R10.84 Generalized abdominal pain (principal); G89.29 Other chronic pain; N80.9 Endometriosis, unspecified; R11.0 Nausea; G43.909 Migraine, unspecified, not intractable, without status migrainosus; F41.9 Anxiety disorder, unspecified; F31.9 Bipolar disorder, unspecified; F20.9 Schizophrenia, unspecified; Z86.73 Personal history of transient ischemic attack (TIA), and cerebral infarction without residual deficits; Z86.69 Personal history of other diseases of the nervous system and sense organs; Z86.19 Personal history of other infectious and parasitic diseases; Z87.442 Personal history of urinary calculi; Z86.14 Personal history of Methicillin resistant Staphylococcus aureus infection; Z95.0 Presence of cardiac pacemaker; Z98.890 Other specified postprocedural states; Z56.0 Unemployment, unspecified; Z88.0 Allergy status to penicillin; Z88.8 Allergy status to other drugs, medicaments and biological substances; Z79.2 Long term (current) use of antibiotics; Z79.899 Other long term (current) drug therapy
CPT/HCPCS: 81003; 81025; 96372; 99283; J1885

== ENCOUNTER 2021-10-08 06:44 | Emergency (ER) | payer MEDICARE, MEDICAID ==
[~2021-10-08] VITALS: Ht 170.2 cm; Wt 149.6 kg
[~2021-10-08 06:44] MED LIST changes: +HYDR-3965 PO
[2021-10-08] MEDS ORDERED: proCHLORperazine 10 MG/2 ml inj IV ONE (08:05)
[2021-10-08] MEDS ORDERED: ketorolac tromethamine 15mg/ml inj. IV ONE (08:05)
[2021-10-08] MEDS ORDERED: normal saline 1000ML IV soln IVB ONE (08:05)
[2021-10-08] MEDS ORDERED: diphenhydrAMINE 50 mg/ml inj IV ONE (08:10)
--- NOTE | 2021-10-08 09:27 | NUR ---
Doctor rosales at bedside.
[2021-10-08] MEDS ORDERED: morphine 4 MG/ML inj SYRINge IV ONE (09:30)
[2021-10-08] MEDS ORDERED: ondansetron/PF 4mg/2ml inj IV ONE (09:30)
[2021-10-08 10:31] VITALS: BP 125/57
== END 2021-10-08 10:49 | disposition home or self-care (01) ==
LOC: ER 06:45
DX: G43.909 Migraine, unspecified, not intractable, without status migrainosus (principal); G89.29 Other chronic pain; Z86.73 Personal history of transient ischemic attack (TIA), and cerebral infarction without residual deficits; Z86.79 Personal history of other diseases of the circulatory system; Z86.19 Personal history of other infectious and parasitic diseases; Z87.442 Personal history of urinary calculi; Z86.14 Personal history of Methicillin resistant Staphylococcus aureus infection; Z95.5 Presence of coronary angioplasty implant and graft; Z95.0 Presence of cardiac pacemaker; Z56.0 Unemployment, unspecified; Z91.018 Allergy to other foods; Z91.041 Radiographic dye allergy status; Z88.0 Allergy status to penicillin; Z88.8 Allergy status to other drugs, medicaments and biological substances; Z88.1 Allergy status to other antibiotic agents; Z79.899 Other long term (current) drug therapy
CPT/HCPCS: 96361; 96374; 96375; 99284; J0780; J1200; J1885; J2270; J2405; J7030

== ENCOUNTER 2021-10-12 18:59 | Emergency (ER) | payer MEDICARE, MEDICAID ==
[~2021-10-12] VITALS: Ht 170.2 cm; Wt 149.8 kg
[2021-10-12] MEDS ORDERED: normal saline 1000ml 1,000 ML IV ONE (23:00)
[2021-10-12] MEDS ORDERED: morphine 4 MG/ML inj SYRINge IV ONE (23:00)
[2021-10-12] MEDS ORDERED: diphenhydrAMINE 50 mg/ml inj IV ONE (23:00)
[2021-10-12] MEDS ORDERED: ondansetron/PF 4mg/2ml inj IV ONE (23:00)
[2021-10-12 23:26] LABS: BASOPHILS # (AUTO) 0.1 X10'3 (0-0.2); BASOPHILS % (AUTO) 0.5 % (0-1); EOSINOPHILS # (AUTO) 0.3 X10'3 (0-0.9); EOSINOPHILS % (AUTO) 3.3 % (0-6); HEMATOCRIT 47.5 % (35.0-45.0); LYMPHOCYTES # (AUTO) 3.1 X10'3 (1.1-4.8); MEAN CORPUSCULAR HEMOGLOBIN 29.1 PG (27.0-31.0); MEAN CORPUSCULAR HGB CONC 33.7 g/dL (33.0-36.5); MEAN CORPUSCULAR VOLUME 86.2 FL (78-98); MEAN PLATELET VOLUME 8.5 FL (7.4-10.4); MONOCYTES # (AUTO) 0.8 X10'3 (0-0.9); MONOCYTES % (AUTO) 8.2 % (2-12); PLATELET COUNT 337 X10'3 (140-440); RED BLOOD COUNT 5.51 X10'6 (4.20-5.60); WHITE BLOOD COUNT 10.4 X10'3 (4.5-11.0)
[2021-10-12 23:42] LABS: ALANINE AMINOTRANSFERASE 49 U/L (12-78); ALBUMIN 4.3 G/DL (3.4-5.0); ALKALINE PHOSPHATASE 80 IU/L (46-116); ANION GAP 12 (8-16); ASPARTATE AMINO TRANSFERASE 23 U/L (10-37); BILIRUBIN,TOTAL 0.3 MG/DL (0.1-1.0); BLOOD UREA NITROGEN 12 MG/DL (7-18); BUN/CREATININE RATIO 11.3 (6.6-38.0); CALCIUM 9.8 MG/DL (8.5-10.1); CHLORIDE 101 MMOL/L (99-107); CREATININE 1.06 MG/DL (0.40-0.90); GLUCOSE 85 MG/DL (70-104); POTASSIUM 3.8 MMOL/L (3.5-5.1); SODIUM 138 MMOL/L (135-145); TOTAL CARBON DIOXIDE 25.3 MMOL/L (24-32); TOTAL PROTEIN 8.5 G/DL (6.4-8.2); eGFR 58 ML/MIN
[2021-10-12 23:46] LABS: ACETAMINOPHEN < 2.0 UG/ML (10-30)
[2021-10-13] MEDS ORDERED: ketorolac trometh. 30mg/ml inj. IV ONE (00:20)
[2021-10-13] MEDS ORDERED: morphine 4 MG/ML inj SYRINge IV ONE (02:15)
--- NOTE | 2021-10-13 02:53 | NUR ---
Upon discharging pt and discontinuing IV pt states itching at IV site. advised Dr. Coulter of pt condition and he asked for a verbal order of 25 mg Benadryl PO
[2021-10-13] MEDS ORDERED: diphenhydrAMINE 25mg capsule PO ONE (02:55)
[2021-10-13 02:59] VITALS: BP 141/81
== END 2021-10-13 03:02 | disposition home or self-care (01) ==
LOC: ER 18:59
DX: G43.909 Migraine, unspecified, not intractable, without status migrainosus (principal); G89.29 Other chronic pain; F41.9 Anxiety disorder, unspecified; F31.9 Bipolar disorder, unspecified; F20.9 Schizophrenia, unspecified; Z86.73 Personal history of transient ischemic attack (TIA), and cerebral infarction without residual deficits; Z86.69 Personal history of other diseases of the nervous system and sense organs; Z86.19 Personal history of other infectious and parasitic diseases; Z87.442 Personal history of urinary calculi; Z86.14 Personal history of Methicillin resistant Staphylococcus aureus infection; Z95.0 Presence of cardiac pacemaker; Z98.890 Other specified postprocedural states; Z56.0 Unemployment, unspecified; Z88.0 Allergy status to penicillin; Z88.8 Allergy status to other drugs, medicaments and biological substances; Z91.018 Allergy to other foods; Z79.899 Other long term (current) drug therapy
CPT/HCPCS: 36415; 80053; 80329; 85025; 96361; 96374; 96375; 96376; 99285; J1200; J1885; J2270; J2405; J7030; Q0163

== ENCOUNTER 2021-12-01 21:20 | Emergency (ER) | payer MEDICARE, MEDICAID ==
[~2021-12-01] VITALS: Ht 170.2 cm; Wt 149.1 kg
[~2021-12-01 21:20] MED LIST changes: -HYDR-3965 PO
[2021-12-01 21:26] VITALS: BP 125/73
[2021-12-01] MEDS ORDERED: LIDOcaine Viscous 15ml cup MM ONE (22:20)
[2021-12-01] MEDS ORDERED: mag hydrox/Alum hydrox/simeth 30ml oral suspension PO ONE (22:20)
[2021-12-01] MEDS ORDERED: ondansetron 4mg rapidly disintigrating tab PO ONE ×2 (22:20→23:15)
[2021-12-01] MEDS ORDERED: pantoprazole 40mg Tablet.DR PO ONE (22:20)
[2021-12-01 22:48] LABS: BASOPHILS % (AUTO) 0.5 % (0-1); EOSINOPHILS # (AUTO) 0.8 X10'3 (0-0.9); EOSINOPHILS % (AUTO) 9.9 % (0-6); HEMATOCRIT 40.5 % (35.0-45.0); HEMOGLOBIN 13.8 g/dl (12.0-16.0); LYMPHOCYTES # (AUTO) 2.6 X10'3 (1.1-4.8); LYMPHOCYTES % (AUTO) 30.2 % (21-51); MEAN CORPUSCULAR HEMOGLOBIN 28.8 PG (27.0-31.0); MEAN CORPUSCULAR VOLUME 84.8 FL (78-98); MEAN PLATELET VOLUME 8.4 FL (7.4-10.4); MONOCYTES # (AUTO) 0.8 X10'3 (0-0.9); MONOCYTES % (AUTO) 9.2 % (2-12); NEUTROPHILS # (AUTO) 4.2 X10'3 (1.8-7.7); NEUTROPHILS % (AUTO) 50.2 % (42-75); PLATELET COUNT 265 X10'3 (140-440); RED BLOOD COUNT 4.78 X10'6 (4.20-5.60); RED CELL DISTRIBUTION WIDTH 12.7 % (11.5-14.5); WHITE BLOOD COUNT 8.5 X10'3 (4.5-11.0)
[2021-12-01 23:01] LABS: APTT 26 SECONDS (22-32)
[2021-12-01 23:03] LABS: ALANINE AMINOTRANSFERASE 53 U/L (12-78); ALBUMIN 3.4 G/DL (3.4-5.0); ALKALINE PHOSPHATASE 75 IU/L (46-116); ANION GAP 7 (8-16); ASPARTATE AMINO TRANSFERASE 23 U/L (10-37); BILIRUBIN,TOTAL 0.2 MG/DL (0.1-1.0); BLOOD UREA NITROGEN 11 MG/DL (7-18); BUN/CREATININE RATIO 12.8 (6.6-38.0); CALCIUM 9.2 MG/DL (8.5-10.1); CHLORIDE 104 MMOL/L (99-107); CREATININE 0.86 MG/DL (0.40-0.90); GLUCOSE 91 MG/DL (70-104); POTASSIUM 4.2 MMOL/L (3.5-5.1); SODIUM 138 MMOL/L (135-145); TOTAL PROTEIN 6.8 G/DL (6.4-8.2); eGFR 73 ML/MIN
[2021-12-01] MEDS ORDERED: PANT-47 PO (23:14)
[2021-12-01] MEDS ORDERED: morphine 4 MG/ML inj SYRINge IM ONE (23:15)
[2021-12-01 23:43] LABS: CLARITY,URINE CLEAR (Clear); COLOR,URINE YELLOW (Yellow); GLUCOSE, URINE NEGATIVE (Neg); KETONES,URINE NEGATIVE (Neg); LEUKOCYTE ESTERASE ,URINE NEGATIVE (Neg); NITRITES, URINE NEGATIVE (Neg); OCCULT BLOOD,URINE NEGATIVE (Neg); PH,URINE 5.5 (4.8-8.0); PROTEIN,URINE NEGATIVE (Neg); UROBILINOGEN,URINE 0.2 E.U/dL (0.2-1.0)
[2021-12-01 23:45] LABS: URINE HCG NEGATIVE (NEG)
[2021-12-01 23:54] LABS: UA COLLECTION TYPE CLN CATCH MIDSTREAM
== END 2021-12-01 23:40 | disposition home or self-care (01) ==
LOC: ER 21:21
DX: K29.00 Acute gastritis without bleeding (principal); G43.909 Migraine, unspecified, not intractable, without status migrainosus; G89.29 Other chronic pain; Z86.73 Personal history of transient ischemic attack (TIA), and cerebral infarction without residual deficits; Z86.19 Personal history of other infectious and parasitic diseases; Z87.442 Personal history of urinary calculi; Z86.14 Personal history of Methicillin resistant Staphylococcus aureus infection; Z95.5 Presence of coronary angioplasty implant and graft; Z95.0 Presence of cardiac pacemaker; Z56.0 Unemployment, unspecified; Z88.0 Allergy status to penicillin; Z91.041 Radiographic dye allergy status; Z88.8 Allergy status to other drugs, medicaments and biological substances; Z91.018 Allergy to other foods; Z79.899 Other long term (current) drug therapy; Z79.2 Long term (current) use of antibiotics; Z98.890 Other specified postprocedural states
CPT/HCPCS: 36415; 80053; 81003; 81025; 85025; 85610; 85730; 86885; 86900; 86901; 96372; 99284; J2270; 99283

== ENCOUNTER 2021-12-06 20:16 | Emergency (ER) | payer MEDICARE, MEDICAID ==
[~2021-12-06] VITALS: Ht 170.2 cm; Wt 146.8 kg
[~2021-12-06 20:16] MED LIST changes: +PANT-47 PO
[2021-12-06 22:48] VITALS: BP 168/93
--- NOTE | 2021-12-06 22:56 | NUR ---
PT HAS HX OF SUICIDE ATTEMPT OVER 10 YEARS AGO.
--- NOTE | 2021-12-06 22:56 | NUR ---
PT NOT CURRENTLY VOICING SUICIDAL THOUGHTS/ IDEATION. PT COMPLAINT MEDICATION REGIMEN.
[2021-12-07] MEDS ORDERED: ketorolac trometh inj. 60 MG/2 ML VIAL IM ONE (00:35)
[2021-12-07] MEDS ORDERED: hydrOXYzine 25 MG tablet PO STA (01:09)
[2021-12-07] MEDS ORDERED: morphine 4 MG/ML inj SYRINge IM ONE (01:35)
[2021-12-08] MEDS ORDERED: OXYC-481 PO (14:24)
== END 2021-12-07 02:04 | disposition home or self-care (01) ==
LOC: ER 20:17
DX: M25.511 Pain in right shoulder (principal); G43.909 Migraine, unspecified, not intractable, without status migrainosus; G89.29 Other chronic pain; Z86.14 Personal history of Methicillin resistant Staphylococcus aureus infection; Z86.73 Personal history of transient ischemic attack (TIA), and cerebral infarction without residual deficits; Z87.442 Personal history of urinary calculi; Z95.5 Presence of coronary angioplasty implant and graft; Z95.0 Presence of cardiac pacemaker; Z56.0 Unemployment, unspecified; Z91.018 Allergy to other foods; Z88.0 Allergy status to penicillin; Z91.041 Radiographic dye allergy status; Z88.8 Allergy status to other drugs, medicaments and biological substances; Z79.899 Other long term (current) drug therapy; Z79.2 Long term (current) use of antibiotics
CPT/HCPCS: 73030; 96372; 99284; J1885; J2270; Q0177

== ENCOUNTER 2021-12-08 13:15 | Emergency (ER) | payer MEDICARE, MEDICAID ==
[~2021-12-08] VITALS: Ht 170.2 cm; Wt 146.8 kg
[2021-12-08 13:24] VITALS: BP 144/81
[2021-12-08] MEDS ORDERED: OXYC-481 PO (14:24)
[2021-12-08] MEDS ORDERED: oxyCODONE IR 5mg (immed. release) tablet PO ONE (14:25)
== END 2021-12-08 15:25 | disposition home or self-care (01) ==
LOC: ER 13:15
DX: M25.511 Pain in right shoulder (principal); M79.89 Other specified soft tissue disorders; G43.909 Migraine, unspecified, not intractable, without status migrainosus; F31.9 Bipolar disorder, unspecified; F20.9 Schizophrenia, unspecified; Z88.8 Allergy status to other drugs, medicaments and biological substances; Z88.0 Allergy status to penicillin; Z88.6 Allergy status to analgesic agent; Z79.899 Other long term (current) drug therapy
CPT/HCPCS: 99283

== ENCOUNTER 2022-01-02 21:53 | Emergency (ER) | payer MEDICARE, MEDICAID ==
[~2022-01-02] VITALS: Ht 170.2 cm; Wt 149.1 kg
[~2022-01-02 21:53] MED LIST changes: +OXYC-481 PO
[2022-01-02] MEDS ORDERED: tetanus & diphtheria toxoid (Td) vaccine 0.5ml IMVAC ONE (23:00)
[2022-01-02] MEDS ORDERED: TETanus/Pertussis (Acell)/Diphther VAC/PF (Tdap-Adult) 0.5ml syringe IMVAC ONE (23:15)
[2022-01-03] MEDS ORDERED: LIDOcaine 1% 30ml preserv. free vial IJ ONE (00:15)
[2022-01-03 02:02] VITALS: BP 140/80
== END 2022-01-03 01:00 | disposition home or self-care (01) ==
LOC: ER 21:54
DX: S61.217A Laceration without foreign body of left little finger without damage to nail, initial encounter (principal); G43.909 Migraine, unspecified, not intractable, without status migrainosus; G89.29 Other chronic pain; F41.9 Anxiety disorder, unspecified; F31.9 Bipolar disorder, unspecified; F20.9 Schizophrenia, unspecified; Z86.73 Personal history of transient ischemic attack (TIA), and cerebral infarction without residual deficits; Z86.69 Personal history of other diseases of the nervous system and sense organs; Z86.19 Personal history of other infectious and parasitic diseases; Z87.442 Personal history of urinary calculi; Z86.14 Personal history of Methicillin resistant Staphylococcus aureus infection; Z98.890 Other specified postprocedural states; Z95.0 Presence of cardiac pacemaker; Z56.0 Unemployment, unspecified; Z88.0 Allergy status to penicillin; Z88.8 Allergy status to other drugs, medicaments and biological substances; Z79.2 Long term (current) use of antibiotics; Z79.899 Other long term (current) drug therapy; Z20.3 Contact with and (suspected) exposure to rabies; X58.XXXA Exposure to other specified factors, initial encounter; Y93.89 Activity, other specified; Y92.89 Other specified places as the place of occurrence of the external cause; Y99.8 Other external cause status
CPT/HCPCS: 12001; 73140; 90471; 90715; 99283

== ENCOUNTER 2022-02-13 23:43 | Emergency (ER) | payer MEDICARE, MEDICAID ==
[~2022-02-13] VITALS: Ht 170.2 cm; Wt 148.7 kg
[~2022-02-13 23:43] MED LIST changes: -OXYC-481 PO
[2022-02-14 01:05] LABS: CLARITY,URINE CLEAR (Clear); COLOR,URINE YELLOW (Yellow); GLUCOSE, URINE NEGATIVE (Neg); KETONES,URINE NEGATIVE (Neg); LEUKOCYTE ESTERASE ,URINE NEGATIVE (Neg); NITRITES, URINE NEGATIVE (Neg); OCCULT BLOOD,URINE LARGE (Neg); PROTEIN,URINE TRACE mg/dl (Neg); UROBILINOGEN,URINE 0.2 E.U/dL (0.2-1.0)
[2022-02-14 01:06] LABS: URINE HCG NEGATIVE (NEG)
[2022-02-14 01:10] LABS: UA COLLECTION TYPE CLN CATCH MIDSTREAM
[2022-02-14 01:12] LABS: BACTERIA,URINE 2+ /HPF (Neg); SQUAMOUS EPITHELIAL CELL,UR MANY /LPF (FEW); WBC,URINE 0-4 /HPF (0-4)
[2022-02-14 04:03] VITALS: BP 100/59
[2022-02-14] MEDS ORDERED: morphine 10mg/ml inj. IM ONE (04:15)
[2022-02-14] MEDS ORDERED: ketorolac trometh. 30mg/ml inj. IM ONE (04:15)
== END 2022-02-14 04:30 | disposition home or self-care (01) ==
LOC: ER 23:44
DX: R10.30 Lower abdominal pain, unspecified (principal); N80.9 Endometriosis, unspecified; G43.909 Migraine, unspecified, not intractable, without status migrainosus; G89.29 Other chronic pain; F41.9 Anxiety disorder, unspecified; F31.9 Bipolar disorder, unspecified; F20.9 Schizophrenia, unspecified; Z86.73 Personal history of transient ischemic attack (TIA), and cerebral infarction without residual deficits; Z86.69 Personal history of other diseases of the nervous system and sense organs; Z86.19 Personal history of other infectious and parasitic diseases; Z87.442 Personal history of urinary calculi; Z86.14 Personal history of Methicillin resistant Staphylococcus aureus infection; Z95.0 Presence of cardiac pacemaker; Z98.890 Other specified postprocedural states; Z56.0 Unemployment, unspecified; Z88.0 Allergy status to penicillin; Z88.8 Allergy status to other drugs, medicaments and biological substances; Z79.2 Long term (current) use of antibiotics; Z79.899 Other long term (current) drug therapy
CPT/HCPCS: 81001; 81025; 96372; 99285; J1885; J2274

== ENCOUNTER 2022-03-08 18:24 | Emergency (ER) | payer MEDICARE, MEDICAID ==
[~2022-03-08] VITALS: Ht 170.2 cm; Wt 149.0 kg
[2022-03-08 18:37] VITALS: BP 137/80
[2022-03-08] MEDS ORDERED: morphine 4 MG/ML inj SYRINge IM ONE (20:45)
[2022-03-08] MEDS ORDERED: ketorolac trometh inj. 60 MG/2 ML VIAL IM ONE (20:45)
== END 2022-03-08 21:17 | disposition home or self-care (01) ==
LOC: ER 18:25
DX: M19.90 Unspecified osteoarthritis, unspecified site (principal); M25.561 Pain in right knee; I11.9 Hypertensive heart disease without heart failure; G43.909 Migraine, unspecified, not intractable, without status migrainosus; F31.9 Bipolar disorder, unspecified; F20.9 Schizophrenia, unspecified; Z86.14 Personal history of Methicillin resistant Staphylococcus aureus infection; G89.29 Other chronic pain; Z88.0 Allergy status to penicillin; Z88.8 Allergy status to other drugs, medicaments and biological substances; Z79.899 Other long term (current) drug therapy; Z91.018 Allergy to other foods; W19.XXXA Unspecified fall, initial encounter; Y93.89 Activity, other specified; Y92.89 Other specified places as the place of occurrence of the external cause; Y99.8 Other external cause status
CPT/HCPCS: 73564; 96372; 99284; J1885; J2270; 96374; 96375; A6449

== ENCOUNTER 2022-04-17 18:56 | Emergency (ER) | payer MEDICARE, MEDICAID ==
[~2022-04-17] VITALS: Ht 170.2 cm; Wt 149.1 kg
[2022-04-17 19:37] LABS: BASOPHILS # (AUTO) 0.1 X10'3 (0-0.2); BASOPHILS % (AUTO) 0.7 % (0-1); EOSINOPHILS # (AUTO) 0.3 X10'3 (0-0.9); EOSINOPHILS % (AUTO) 3.8 % (0-6); HEMOGLOBIN 14.2 g/dl (12.0-16.0); LYMPHOCYTES # (AUTO) 2.4 X10'3 (1.1-4.8); LYMPHOCYTES % (AUTO) 33.2 % (21-51); MEAN CORPUSCULAR HEMOGLOBIN 30.3 PG (27.0-31.0); MEAN CORPUSCULAR HGB CONC 34.7 g/dL (33.0-36.5); MEAN CORPUSCULAR VOLUME 87.3 FL (78-98); MEAN PLATELET VOLUME 8.3 FL (7.4-10.4); MONOCYTES # (AUTO) 0.6 X10'3 (0-0.9); MONOCYTES % (AUTO) 8.5 % (2-12); NEUTROPHILS # (AUTO) 3.9 X10'3 (1.8-7.7); NEUTROPHILS % (AUTO) 53.8 % (42-75); PLATELET COUNT 251 X10'3 (140-440); WHITE BLOOD COUNT 7.2 X10'3 (4.5-11.0)
[2022-04-17 19:38] VITALS: BP 151/65
[2022-04-17 19:54] LABS: ALANINE AMINOTRANSFERASE 57 U/L (12-78); ALBUMIN 3.4 G/DL (3.4-5.0); ALBUMIN/GLOBULIN RATIO 0.9 (1.1-1.5); ALKALINE PHOSPHATASE 78 IU/L (46-116); ANION GAP 7 (8-16); ASPARTATE AMINO TRANSFERASE 26 U/L (10-37); BILIRUBIN,TOTAL 0.2 MG/DL (0.1-1.0); BLOOD UREA NITROGEN 9 MG/DL (7-18); BUN/CREATININE RATIO 7.9 (6.6-38.0); CALCIUM 8.9 MG/DL (8.5-10.1); CHLORIDE 106 MMOL/L (99-107); CREATININE 1.14 MG/DL (0.40-0.90); GLUCOSE 97 MG/DL (70-104); POTASSIUM 4.2 MMOL/L (3.5-5.1); SODIUM 139 MMOL/L (135-145); TOTAL CARBON DIOXIDE 25.7 MMOL/L (24-32); eGFR 53 ML/MIN
== END 2022-04-17 22:34 | disposition home or self-care (01) ==
LOC: ER 18:57
DX: R42 Dizziness and giddiness (principal); G43.909 Migraine, unspecified, not intractable, without status migrainosus; F32.9 Major depressive disorder, single episode, unspecified; F41.9 Anxiety disorder, unspecified; F20.9 Schizophrenia, unspecified; Z88.8 Allergy status to other drugs, medicaments and biological substances; Z91.018 Allergy to other foods; Z88.0 Allergy status to penicillin; Z98.61 Coronary angioplasty status; Z56.0 Unemployment, unspecified; Z95.0 Presence of cardiac pacemaker; Z99.89 Dependence on other enabling machines and devices; Z86.73 Personal history of transient ischemic attack (TIA), and cerebral infarction without residual deficits; Z87.442 Personal history of urinary calculi
CPT/HCPCS: 36415; 71045; 80053; 83880; 84484; 85025; 93005; 99285

== ENCOUNTER 2022-04-25 19:28 | Emergency (ER) | payer MEDICARE, MEDICAID ==
[~2022-04-25] VITALS: Ht 170.2 cm; Wt 148.6 kg
[2022-04-25] MEDS ORDERED: ondansetron/PF 4mg/2ml inj IV ONE (23:00)
[2022-04-25] MEDS ORDERED: morphine 4 MG/ML inj SYRINge IV ONE (23:00)
[2022-04-25 23:14] LABS: BASOPHILS # (AUTO) 0.1 X10'3 (0-0.2); BASOPHILS % (AUTO) 0.8 % (0-1); EOSINOPHILS # (AUTO) 0.2 X10'3 (0-0.9); EOSINOPHILS % (AUTO) 1.9 % (0-6); HEMOGLOBIN 15.6 g/dl (12.0-16.0); LYMPHOCYTES # (AUTO) 2.7 X10'3 (1.1-4.8); MEAN CORPUSCULAR HEMOGLOBIN 30.8 PG (27.0-31.0); MEAN CORPUSCULAR HGB CONC 35.5 g/dL (33.0-36.5); MEAN CORPUSCULAR VOLUME 86.6 FL (78-98); MEAN PLATELET VOLUME 8.1 FL (7.4-10.4); MONOCYTES # (AUTO) 0.6 X10'3 (0-0.9); MONOCYTES % (AUTO) 6.6 % (2-12); NEUTROPHILS # (AUTO) 5.4 X10'3 (1.8-7.7); NEUTROPHILS % (AUTO) 60.7 % (42-75); PLATELET COUNT 295 X10'3 (140-440); RED BLOOD COUNT 5.08 X10'6 (4.20-5.60); RED CELL DISTRIBUTION WIDTH 13.1 % (11.5-14.5)
[2022-04-25 23:25] LABS: ALANINE AMINOTRANSFERASE 75 U/L (12-78); ALKALINE PHOSPHATASE 79 IU/L (46-116); ANION GAP 9 (8-16); ASPARTATE AMINO TRANSFERASE 41 U/L (10-37); BILIRUBIN,TOTAL 0.2 MG/DL (0.1-1.0); BLOOD UREA NITROGEN 13 MG/DL (7-18); BUN/CREATININE RATIO 13.7 (6.6-38.0); CALCIUM 10.1 MG/DL (8.5-10.1); CHLORIDE 104 MMOL/L (99-107); CREATININE 0.95 MG/DL (0.40-0.90); GLUCOSE 95 MG/DL (70-104); LIPASE 100 U/L (73-393); POTASSIUM 4.3 MMOL/L (3.5-5.1); SODIUM 138 MMOL/L (135-145); TOTAL CARBON DIOXIDE 25.3 MMOL/L (24-32); eGFR 65 ML/MIN
[2022-04-26 00:52] LABS: URINE HCG NEGATIVE (NEG)
[2022-04-26 00:59] LABS: CLARITY,URINE SLIGHTLY CLOUDY (Clear); COLOR,URINE YELLOW (Yellow); GLUCOSE, URINE NEGATIVE (Neg); KETONES,URINE TRACE mg/dl (Neg); LEUKOCYTE ESTERASE ,URINE NEGATIVE (Neg); NITRITES, URINE NEGATIVE (Neg); OCCULT BLOOD,URINE NEGATIVE (Neg); PROTEIN,URINE NEGATIVE (Neg); UROBILINOGEN,URINE 0.2 E.U/dL (0.2-1.0)
[2022-04-26 01:00] LABS: UA COLLECTION TYPE CLN CATCH MIDSTREAM
[2022-04-26 01:07] LABS: BACTERIA,URINE 1+ /HPF (Neg); MUCUS STRANDS MANY /LPF (Neg); RBC,URINE NONE SEEN /HPF (0-2); SQUAMOUS EPITHELIAL CELL,UR MANY /LPF (FEW); WBC,URINE 0-4 /HPF (0-4)
[2022-04-26] MEDS ORDERED: morphine 4 MG/ML inj SYRINge IV ONE (02:15)
[2022-04-26] MEDS ORDERED: ondansetron/PF 4mg/2ml inj IV ONE (02:15)
[2022-04-26] MEDS ORDERED: ONDA4TAB12 PO (02:17)
[2022-04-26 03:22] VITALS: BP 128/88
== END 2022-04-26 03:24 | disposition home or self-care (01) ==
LOC: ER 19:29
DX: R10.10 Upper abdominal pain, unspecified (principal); K92.1 Melena; I11.9 Hypertensive heart disease without heart failure; F20.9 Schizophrenia, unspecified; F41.9 Anxiety disorder, unspecified; G89.29 Other chronic pain; Z86.14 Personal history of Methicillin resistant Staphylococcus aureus infection; Z91.018 Allergy to other foods; Z88.8 Allergy status to other drugs, medicaments and biological substances; Z88.0 Allergy status to penicillin; Z88.1 Allergy status to other antibiotic agents; Z88.2 Allergy status to sulfonamides
CPT/HCPCS: 36415; 71045; 74176; 80053; 81001; 81025; 83690; 85025; 93005; 96374; 96375; 96376; 99285; J2270; J2405

== ENCOUNTER 2022-05-17 04:47 | Emergency (ER) | payer MEDICARE, MEDICAID ==
[~2022-05-17] VITALS: Ht 170.2 cm; Wt 149.1 kg
[~2022-05-17 04:47] MED LIST changes: +ONDA4TAB12 PO
[2022-05-17 07:55] LABS: BASOPHILS # (AUTO) 0.1 X10'3 (0-0.2); BASOPHILS % (AUTO) 0.7 % (0-1); EOSINOPHILS # (AUTO) 0.4 X10'3 (0-0.9); EOSINOPHILS % (AUTO) 4.3 % (0-6); HEMATOCRIT 43.3 % (35.0-45.0); HEMOGLOBIN 14.9 g/dl (12.0-16.0); LYMPHOCYTES # (AUTO) 2.7 X10'3 (1.1-4.8); LYMPHOCYTES % (AUTO) 30.3 % (21-51); MEAN CORPUSCULAR HEMOGLOBIN 30.2 PG (27.0-31.0); MEAN CORPUSCULAR HGB CONC 34.4 g/dL (33.0-36.5); MEAN PLATELET VOLUME 8.3 FL (7.4-10.4); MONOCYTES # (AUTO) 0.9 X10'3 (0-0.9); MONOCYTES % (AUTO) 9.9 % (2-12); NEUTROPHILS # (AUTO) 4.9 X10'3 (1.8-7.7); NEUTROPHILS % (AUTO) 54.8 % (42-75); PLATELET COUNT 255 X10'3 (140-440); RED BLOOD COUNT 4.92 X10'6 (4.20-5.60); RED CELL DISTRIBUTION WIDTH 13.2 % (11.5-14.5); WHITE BLOOD COUNT 8.9 X10'3 (4.5-11.0)
[2022-05-17 08:15] LABS: ALANINE AMINOTRANSFERASE 51 U/L (12-78); ALBUMIN 3.8 G/DL (3.4-5.0); ALKALINE PHOSPHATASE 82 IU/L (46-116); ANION GAP 9 (8-16); ASPARTATE AMINO TRANSFERASE 31 U/L (10-37); BILIRUBIN,TOTAL 0.4 MG/DL (0.1-1.0); BLOOD UREA NITROGEN 11 MG/DL (7-18); BUN/CREATININE RATIO 12.5 (6.6-38.0); CALCIUM 10.3 MG/DL (8.5-10.1); CHLORIDE 101 MMOL/L (99-107); CREATININE 0.88 MG/DL (0.40-0.90); GLUCOSE 98 MG/DL (70-104); SODIUM 136 MMOL/L (135-145); TOTAL PROTEIN 7.5 G/DL (6.4-8.2); eGFR 71 ML/MIN
[2022-05-17 08:16] LABS: ETHANOL < 0.010 GM/DL (0.0-0.010); LIPASE 74 U/L (73-393)
[2022-05-17 08:36] LABS: ACETAMINOPHEN < 2.0 UG/ML (10-30)
[2022-05-17 08:58] LABS: URINE HCG NEGATIVE (NEG)
[2022-05-17 09:00] LABS: CLARITY,URINE CLEAR (Clear); COLOR,URINE YELLOW (Yellow); GLUCOSE, URINE NEGATIVE (Neg); KETONES,URINE NEGATIVE (Neg); LEUKOCYTE ESTERASE ,URINE NEGATIVE (Neg); NITRITES, URINE NEGATIVE (Neg); OCCULT BLOOD,URINE NEGATIVE (Neg); PROTEIN,URINE NEGATIVE (Neg); UROBILINOGEN,URINE 0.2 E.U/dL (0.2-1.0)
[2022-05-17 09:05] LABS: UA COLLECTION TYPE NON-SPECIFIED
[2022-05-17 09:16] LABS: URINE AMPHETAMINE SCREEN NEGATIVE (Neg); URINE BARBITUATE SCREEN NEGATIVE (Neg); URINE BENZODIAZEPINES SCREEN NEGATIVE (Neg); URINE CANNABINOID SCREEN NEGATIVE (Neg); URINE COCAINE SCREEN NEGATIVE (Neg); URINE METHADONE SCREEN NEGATIVE (Neg); URINE OPIATE SCREEN POSITIVE (Neg); URINE PHENCYCLIDINE SCREEN NEGATIVE (Neg)
[2022-05-17 11:31] VITALS: BP 131/83
--- NOTE | 2022-05-17 11:45 | NUR ---
CONTACTED ARIELLE AT POISON CONTROL, PER POISON CONTROL REPEAT ALT/AST LEVELS TO RULE OUT RISING TREND. NO OTHER RECOMMENDATIONS GIVEN. MD NOTIFIED AND TO PUT IN ORDERS.
[2022-05-17 12:05] LABS: ALANINE AMINOTRANSFERASE 53 U/L (12-78); ALBUMIN 3.7 G/DL (3.4-5.0); ALKALINE PHOSPHATASE 81 IU/L (46-116); ANION GAP 11 (8-16); ASPARTATE AMINO TRANSFERASE 32 U/L (10-37); BILIRUBIN,TOTAL 0.3 MG/DL (0.1-1.0); BLOOD UREA NITROGEN 10 MG/DL (7-18); BUN/CREATININE RATIO 11.5 (6.6-38.0); CALCIUM 9.7 MG/DL (8.5-10.1); CHLORIDE 101 MMOL/L (99-107); CREATININE 0.87 MG/DL (0.40-0.90); GLUCOSE 100 MG/DL (70-104); POTASSIUM 4.1 MMOL/L (3.5-5.1); SODIUM 138 MMOL/L (135-145); TOTAL CARBON DIOXIDE 25.8 MMOL/L (24-32); TOTAL PROTEIN 7.4 G/DL (6.4-8.2); eGFR 72 ML/MIN
== END 2022-05-17 12:49 | disposition home or self-care (01) ==
LOC: ER 04:50
DX: T39.1X1A Poisoning by 4-Aminophenol derivatives, accidental (unintentional), initial encounter (principal); G43.909 Migraine, unspecified, not intractable, without status migrainosus; J45.909 Unspecified asthma, uncomplicated; G89.29 Other chronic pain; F31.9 Bipolar disorder, unspecified; Z91.018 Allergy to other foods; Z88.1 Allergy status to other antibiotic agents; Z88.0 Allergy status to penicillin; Z91.041 Radiographic dye allergy status; Z88.5 Allergy status to narcotic agent; Z56.0 Unemployment, unspecified; Y92.89 Other specified places as the place of occurrence of the external cause
CPT/HCPCS: 36415; 80053; 80305; 80320; 80329; 81003; 81025; 83690; 85025; 85610; 99283

== ENCOUNTER 2022-06-10 11:08 | Emergency (ER) | payer MEDICARE, MEDICAID ==
[~2022-06-10] VITALS: Ht 170.2 cm; Wt 148.6 kg
[2022-06-10 12:05] VITALS: BP 144/66
== END 2022-06-10 13:39 | disposition home or self-care (01) ==
LOC: ER 11:09
DX: J06.9 Acute upper respiratory infection, unspecified (principal); R09.81 Nasal congestion; G43.909 Migraine, unspecified, not intractable, without status migrainosus; F31.9 Bipolar disorder, unspecified; Z91.018 Allergy to other foods; Z91.041 Radiographic dye allergy status; Z88.1 Allergy status to other antibiotic agents; Z88.0 Allergy status to penicillin; Z88.5 Allergy status to narcotic agent; Z88.8 Allergy status to other drugs, medicaments and biological substances; Z56.0 Unemployment, unspecified
CPT/HCPCS: 87502; 87503; 99283

== ENCOUNTER 2022-07-24 07:18 | Emergency (ER) | payer MEDICARE, MEDICAID ==
[~2022-07-24] VITALS: Ht 170.2 cm; Wt 149.1 kg
[2022-07-24 07:41] VITALS: BP 158/98
[2022-07-24] MEDS ORDERED: ketorolac tromethamine 15mg/ml inj. IV ONE (08:10)
[2022-07-24] MEDS ORDERED: proCHLORperazine 10 MG/2 ml inj IV ONE (08:10)
[2022-07-24] MEDS ORDERED: normal saline 1000ML IV soln IVB ONE (08:10)
[2022-07-24] MEDS ORDERED: diphenhydrAMINE 50 mg/ml inj IV ONE (08:10)
== END 2022-07-24 10:35 | disposition home or self-care (01) ==
LOC: ER 07:19
DX: G43.909 Migraine, unspecified, not intractable, without status migrainosus (principal); J45.909 Unspecified asthma, uncomplicated; F31.9 Bipolar disorder, unspecified; Z91.018 Allergy to other foods; Z88.1 Allergy status to other antibiotic agents; Z88.0 Allergy status to penicillin; Z91.041 Radiographic dye allergy status; Z88.5 Allergy status to narcotic agent; Z88.8 Allergy status to other drugs, medicaments and biological substances; Z56.0 Unemployment, unspecified
CPT/HCPCS: 96374; 96375; 99284; J0780; J1200; J1885; J7030

== ENCOUNTER 2022-07-26 06:27 | Emergency (ER) | payer MEDICARE, MEDICAID ==
[~2022-07-26] VITALS: Ht 170.2 cm; Wt 150.0 kg
[2022-07-26] MEDS: morphine 4 MG/ML inj SYRINge IM ONE (08:55)
[2022-07-26] MEDS: ondansetron 4mg rapidly disintigrating tab PO ONE (08:56)
[2022-07-26 09:31] VITALS: BP 146/76
== END 2022-07-26 09:37 | disposition home or self-care (01) ==
LOC: ER 06:28
DX: M25.561 Pain in right knee (principal); M25.562 Pain in left knee; G89.29 Other chronic pain; G43.909 Migraine, unspecified, not intractable, without status migrainosus; J45.909 Unspecified asthma, uncomplicated; F31.9 Bipolar disorder, unspecified; Z91.018 Allergy to other foods; Z88.8 Allergy status to other drugs, medicaments and biological substances; Z91.041 Radiographic dye allergy status; Z56.0 Unemployment, unspecified
CPT/HCPCS: 96372; 99283; J2270

== ENCOUNTER 2022-10-05 20:24 | Emergency (ER) | payer MEDICAID, MEDICARE ==
[~2022-10-05] VITALS: Ht 170.2 cm; Wt 153.8 kg
[2022-10-05 20:27] VITALS: BP 157/85
[2022-10-05] MEDS ORDERED: zolpidem 5mg tablet PO ONE (21:30)
== END 2022-10-05 21:48 | disposition home or self-care (01) ==
LOC: ER 20:25
DX: F41.9 Anxiety disorder, unspecified (principal); G47.00 Insomnia, unspecified; J45.909 Unspecified asthma, uncomplicated; Z59.00 Homelessness unspecified; Z88.0 Allergy status to penicillin; Z88.1 Allergy status to other antibiotic agents; Z91.018 Allergy to other foods; Z88.6 Allergy status to analgesic agent; Z88.8 Allergy status to other drugs, medicaments and biological substances; Z79.899 Other long term (current) drug therapy
CPT/HCPCS: 99283

== ENCOUNTER 2022-10-23 18:28 | Emergency (ER) | payer MEDICAID ==
[~2022-10-23] VITALS: Ht 170.2 cm; Wt 137.3 kg
[2022-10-23 19:39] VITALS: BP 125/75
== END 2022-10-24 06:37 | disposition left against medical advice (07) ==
LOC: ER 18:29
DX: M79.604 Pain in right leg (principal); Z53.21 Procedure and treatment not carried out due to patient leaving prior to being seen by health care provider
CPT/HCPCS: 99281

== ENCOUNTER 2022-11-06 17:35 | Emergency (ER) | payer OTHER, MEDICAID ==
[~2022-11-06] VITALS: Ht 170.2 cm; Wt 155.6 kg
[2022-11-06] MEDS ORDERED: ketorolac tromethamine 15mg/ml inj. IM STA (19:50)
[2022-11-06] MEDS ORDERED: HYDROcodone/acetaminophen 5mg/325mg tablet PO ONE (21:35)
[2022-11-06] MEDS ORDERED: OXYC-145 PO (22:47)
[2022-11-06 23:08] VITALS: BP 138/65
== END 2022-11-06 23:10 | disposition home or self-care (01) ==
LOC: ER 17:36
DX: M54.2 Cervicalgia (principal); M54.6 Pain in thoracic spine; G43.909 Migraine, unspecified, not intractable, without status migrainosus; J45.909 Unspecified asthma, uncomplicated; Z91.018 Allergy to other foods; Z88.1 Allergy status to other antibiotic agents; Z91.041 Radiographic dye allergy status; Z88.5 Allergy status to narcotic agent; Z56.0 Unemployment, unspecified; V89.2XXA Person injured in unspecified motor-vehicle accident, traffic, initial encounter; Y93.89 Activity, other specified; Y92.89 Other specified places as the place of occurrence of the external cause; Y99.8 Other external cause status
CPT/HCPCS: 72125; 72128; 96372; 99285; J1885

== ENCOUNTER 2022-11-09 17:49 | Emergency (ER) | payer MEDICARE, MEDICAID ==
[~2022-11-09] VITALS: Ht 170.2 cm; Wt 147.7 kg
[~2022-11-09 17:49] MED LIST changes: +OXYC-145 PO
[2022-11-09] MEDS ORDERED: morphine 4 MG/ML inj SYRINge IM ONE (18:45)
[2022-11-09] MEDS ORDERED: ondansetron 4mg rapidly disintigrating tab PO ONE (18:45)
[2022-11-09] MEDS ORDERED: ketorolac trometh. 30mg/ml inj. IM ONE (18:45)
[2022-11-09 19:11] VITALS: BP 144/92
--- NOTE | 2022-11-09 19:11 | NUR ---
[facility] CALLED FOR PATIENT EST TIME OF ARRIVAL 20 MIN.
== END 2022-11-09 19:14 | disposition home or self-care (01) ==
LOC: ER 17:49
DX: S29.012A Strain of muscle and tendon of back wall of thorax, initial encounter (principal); G43.909 Migraine, unspecified, not intractable, without status migrainosus; J45.909 Unspecified asthma, uncomplicated; F31.9 Bipolar disorder, unspecified; Z91.018 Allergy to other foods; Z88.1 Allergy status to other antibiotic agents; Z91.040 Latex allergy status; Z88.0 Allergy status to penicillin; Z91.041 Radiographic dye allergy status; Z56.0 Unemployment, unspecified; V89.2XXA Person injured in unspecified motor-vehicle accident, traffic, initial encounter; Y93.89 Activity, other specified; Y92.89 Other specified places as the place of occurrence of the external cause; Y99.8 Other external cause status
CPT/HCPCS: 96372; 99284; J1885; J2270

== ENCOUNTER 2023-06-30 16:23 | Emergency (ER) | payer MEDICARE, MEDICAID ==
[~2023-06-30] VITALS: Ht 170.2 cm; Wt 149.5 kg
[~2023-06-30 16:23] MED LIST changes: -CHLO118L TOP; -CLIN30GE2 TOP; +CLON0.1T2 PO; -DIVA-81 PO; +DIVA500T9 PO; +DOCU100C40 PO; +DULO60CA65 PO; +HYDR-3972 PO; -HYDR-4353 PO; -HYDR-4383 PO; -HYDR25TA5 PO; -L. R1CAP4 PO; -LAMO100T PO; +LAMO200T51 PO; -LIDO20SO16 PO; +LIDO700A47 TP; -ONDA4TAB12 PO; -ONDA4TAB6 PO; -OXYC-145 PO; -PROM25SU9 RC; -QUET-1 PO; +QUET300T91 PO; -SUCR1TAB PO; +ZOLP10TA PO; -ZOLP10TA5 PO
[2023-06-30 16:42] VITALS: TEMP 98.3
[2023-06-30] MEDS ORDERED: ondansetron 4mg rapidly disintigrating tab PO ONE (18:05)
[2023-06-30] MEDS ORDERED: morphine 4 MG/ML inj SYRINge IV ONE (18:05)
[2023-06-30] MEDS ORDERED: PRED20TA PO (18:08)
[2023-06-30] MEDS ORDERED: morphine 2 MG/ML inj. syringe IM ONE (18:40)
[2023-06-30 19:22] VITALS: BP 140/72; PULSE 90; RESP 16; O2SAT 94
== END 2023-06-30 19:40 | disposition home or self-care (01) ==
LOC: ER 16:24
DX: M54.50 Low back pain, unspecified (principal); G43.909 Migraine, unspecified, not intractable, without status migrainosus; J45.909 Unspecified asthma, uncomplicated; G89.29 Other chronic pain; M19.90 Unspecified osteoarthritis, unspecified site; Z86.73 Personal history of transient ischemic attack (TIA), and cerebral infarction without residual deficits; Z56.0 Unemployment, unspecified; Z79.899 Other long term (current) drug therapy; Z88.8 Allergy status to other drugs, medicaments and biological substances; Z91.018 Allergy to other foods; Z88.0 Allergy status to penicillin
CPT/HCPCS: 96372; 99283; J2270

== ENCOUNTER 2023-10-06 17:28 | Emergency (ER) | payer MEDICARE, MEDICAID ==
[~2023-10-06] VITALS: Ht 154.9 cm; Wt 151.2 kg
[2023-10-06 18:34] LABS: BASOPHILS % (AUTO) 0.3 % (0-1); EOSINOPHILS # (AUTO) 0.2 X10'3 (0-0.9); EOSINOPHILS % (AUTO) 2.3 % (0-6); LYMPHOCYTES # (AUTO) 2.4 X10'3 (1.1-4.8); LYMPHOCYTES % (AUTO) 22.5 % (21-51); MEAN CORPUSCULAR HEMOGLOBIN 30.1 PG (27.0-31.0); MEAN CORPUSCULAR HGB CONC 33.4 g/dL (33.0-36.5); MEAN CORPUSCULAR VOLUME 90.2 FL (78-98); MEAN PLATELET VOLUME 8.3 FL (7.4-10.4); MONOCYTES # (AUTO) 0.8 X10'3 (0-0.9); MONOCYTES % (AUTO) 7.6 % (2-12); NEUTROPHILS # (AUTO) 7.1 X10'3 (1.8-7.7); NEUTROPHILS % (AUTO) 67.3 % (42-75); PLATELET COUNT 265 X10'3 (140-440); RED BLOOD COUNT 4.66 X10'6 (4.20-5.60); WHITE BLOOD COUNT 10.5 X10'3 (4.5-11.0)
[2023-10-06 19:08] LABS: ALBUMIN 3.4 G/DL (3.4-5.0); ANION GAP 8 (8-16); BLOOD UREA NITROGEN 17 MG/DL (7-18); BUN/CREATININE RATIO 16.3 (10.0-20.0); CALCIUM 9.5 MG/DL (8.5-10.1); CHLORIDE 105 MMOL/L (99-107); CREATININE 1.04 MG/DL (0.40-0.90); GLUCOSE 100 MG/DL (70-104); POTASSIUM 4.3 MMOL/L (3.5-5.1); PRO BRAIN NATRIURETIC PEPTIDE 180 PG/ML (0-125); SODIUM 142 MMOL/L (135-145); TOTAL CARBON DIOXIDE 29.1 MMOL/L (24-32); eCRCL 54 ML/MIN; eGFR 58 ML/MIN
[2023-10-06] MEDS ORDERED: PRED10TA23 PO (19:46)
[2023-10-06] MEDS ORDERED: DOXY-457 PO (19:46)
[2023-10-06] MEDS: ipratropium/albuterol 3ml nebule NEB ONE (19:56)
[2023-10-06 19:59] VITALS: PULSE 73; RESP 18; O2SAT 95
[2023-10-06 20:07] VITALS: PULSE 82; RESP 18; O2SAT 98
[2023-10-06 20:21] LABS: TOTAL CELLS COUNTED 100
[2023-10-06 20:22] LABS: PLATELET ESTIMATE NORMAL
[2023-10-06 20:29] VITALS: BP 124/68; PULSE 70; RESP 16; TEMP 99.1; O2SAT 96
== END 2023-10-06 20:30 | disposition home or self-care (01) ==
LOC: ER 17:28
DX: J20.9 Acute bronchitis, unspecified (principal); J22 Unspecified acute lower respiratory infection; G43.909 Migraine, unspecified, not intractable, without status migrainosus; J45.909 Unspecified asthma, uncomplicated; F31.9 Bipolar disorder, unspecified; Z88.8 Allergy status to other drugs, medicaments and biological substances; Z91.018 Allergy to other foods; Z88.0 Allergy status to penicillin; Z91.041 Radiographic dye allergy status; Z79.899 Other long term (current) drug therapy
CPT/HCPCS: 36415; 71046; 80048; 83605; 83880; 85007; 85025; 87040; 94640; 94760; 99284

== ENCOUNTER 2024-02-02 15:59 | Emergency (ER) | payer MEDICARE, MEDICAID ==
[~2024-02-02] VITALS: Ht 170.2 cm; Wt 148.2 kg
[2024-02-02] MEDS ORDERED: SULF1TAB49 PO (16:41)
[2024-02-02 16:57] VITALS: BP 130/88; PULSE 65; RESP 16; TEMP 98.1; O2SAT 98
== END 2024-02-02 16:58 | disposition home or self-care (01) ==
LOC: ER 15:59
DX: N61.0 Mastitis without abscess (principal); G43.909 Migraine, unspecified, not intractable, without status migrainosus; J45.909 Unspecified asthma, uncomplicated; Z87.442 Personal history of urinary calculi; F41.9 Anxiety disorder, unspecified; F32.A Depression, unspecified; Z95.0 Presence of cardiac pacemaker; Z98.890 Other specified postprocedural states; Z56.0 Unemployment, unspecified; Z88.8 Allergy status to other drugs, medicaments and biological substances; Z91.018 Allergy to other foods; Z88.0 Allergy status to penicillin; Z91.041 Radiographic dye allergy status; Z79.899 Other long term (current) drug therapy; Z79.1 Long term (current) use of non-steroidal anti-inflammatories (NSAID); Z86.73 Personal history of transient ischemic attack (TIA), and cerebral infarction without residual deficits
CPT/HCPCS: 99283

== ENCOUNTER 2024-04-03 01:10 | Emergency (ER) | payer MEDICARE, MEDICAID ==
[~2024-04-03] VITALS: Ht 170.2 cm; Wt 145.0 kg
[2024-04-03] MEDS ORDERED: HYDR-3965 PO (02:00)
[2024-04-03] MEDS ORDERED: CLIN150C2 PO (02:00)
[2024-04-03] MEDS: clindamycin 150mg capsule PO ONE (02:01)
[2024-04-03] MEDS: HYDROcodone/acetaminophen 5mg/325mg tablet PO ONE (02:01)
[2024-04-03] MEDS: ondansetron 4mg rapidly disintigrating tab PO ONE (02:02)
[2024-04-03 02:18] VITALS: BP 141/91; PULSE 72; RESP 15; TEMP 97.9; O2SAT 93
== END 2024-04-03 02:19 | disposition home or self-care (01) ==
LOC: ER 01:11
DX: J02.9 Acute pharyngitis, unspecified (principal); R59.1 Generalized enlarged lymph nodes; M19.90 Unspecified osteoarthritis, unspecified site; J45.909 Unspecified asthma, uncomplicated; F20.9 Schizophrenia, unspecified; F31.9 Bipolar disorder, unspecified; E11.9 Type 2 diabetes mellitus without complications; Z88.0 Allergy status to penicillin; Z88.5 Allergy status to narcotic agent; Z88.8 Allergy status to other drugs, medicaments and biological substances; Z91.041 Radiographic dye allergy status; Z79.899 Other long term (current) drug therapy; Z82.61 Family history of arthritis; Z86.73 Personal history of transient ischemic attack (TIA), and cerebral infarction without residual deficits; Z98.890 Other specified postprocedural states; Z87.19 Personal history of other diseases of the digestive system; Z95.0 Presence of cardiac pacemaker
CPT/HCPCS: 99283

== ENCOUNTER 2024-04-05 00:56 | Emergency (ER) | payer MEDICARE, MEDICAID ==
[~2024-04-05] VITALS: Ht 170.2 cm; Wt 141.0 kg
[~2024-04-05 00:56] MED LIST changes: +CLIN150C2 PO
[2024-04-05] MEDS: ondansetron/PF 4mg/2ml inj IV ONE (02:10)
[2024-04-05 03:16] LABS: ALANINE AMINOTRANSFERASE 40 U/L (12-78); ALBUMIN 3.5 G/DL (3.4-5.0); ALBUMIN/GLOBULIN RATIO 1.1 (1.1-1.5); ALKALINE PHOSPHATASE 72 IU/L (46-116); ANION GAP 4 (8-16); ASPARTATE AMINO TRANSFERASE 18 U/L (10-37); BILIRUBIN,TOTAL 0.2 MG/DL (0.1-1.0); BLOOD UREA NITROGEN 12 MG/DL (7-18); BUN/CREATININE RATIO 12.6 (10.0-20.0); CALCIUM 9.1 MG/DL (8.5-10.1); CHLORIDE 102 MMOL/L (99-107); CREATININE 0.95 MG/DL (0.40-0.90); GLUCOSE 121 MG/DL (70-104); LIPASE 26 U/L (16-77); MAGNESIUM 2.4 MG/DL (1.5-2.4); POTASSIUM 4.6 MMOL/L (3.5-5.1); SODIUM 138 MMOL/L (135-145); TOTAL PROTEIN 6.8 G/DL (6.4-8.2); eCRCL 75 ML/MIN; eGFR 65 ML/MIN
[2024-04-05 03:29] LABS: BETA HCG,QUANTITATIVE < 1.0 mIU/ml
[2024-04-05] MEDS ORDERED: ONDA-243 PO (03:42)
[2024-04-05 04:05] VITALS: BP 112/65; PULSE 70; RESP 18; TEMP 97.4; O2SAT 96
== END 2024-04-05 03:52 | disposition home or self-care (01) ==
LOC: ER 00:57
DX: R11.2 Nausea with vomiting, unspecified (principal); R53.1 Weakness; Z79.899 Other long term (current) drug therapy; J45.909 Unspecified asthma, uncomplicated; F31.9 Bipolar disorder, unspecified; F20.9 Schizophrenia, unspecified; E11.9 Type 2 diabetes mellitus without complications; M19.90 Unspecified osteoarthritis, unspecified site; Z88.0 Allergy status to penicillin; Z88.1 Allergy status to other antibiotic agents; Z88.5 Allergy status to narcotic agent; Z88.8 Allergy status to other drugs, medicaments and biological substances; Z91.041 Radiographic dye allergy status; Z86.73 Personal history of transient ischemic attack (TIA), and cerebral infarction without residual deficits; Z95.0 Presence of cardiac pacemaker; Z98.890 Other specified postprocedural states
CPT/HCPCS: 36415; 80053; 83690; 83735; 84702; 99284

== ENCOUNTER 2024-04-24 08:44 | Emergency (ER) | payer MEDICARE, MEDICAID ==
[~2024-04-24] VITALS: Ht 170.2 cm; Wt 157.3 kg
[~2024-04-24 08:44] MED LIST changes: -CLIN150C2 PO; +ONDA-243 PO
[2024-04-24 08:50] VITALS: PULSE 82; TEMP 98.6; O2SAT 100
[2024-04-24] MEDS: metoclopramide 5 mg/ml inj IV ONE (10:03)
[2024-04-24] MEDS: dexamethasone sod phosphate 10mg/ml inj IM STA (10:03)
[2024-04-24] MEDS: proCHLORperazine 10 MG/2 ml inj IV ONE ×2 (10:10→12:32)
[2024-04-24] MEDS: diphenhydrAMINE 50 mg/ml inj IM ONE (11:15)
[2024-04-24] MEDS: ketorolac trometh 15mg/ml vial 15 MG/ML ML IV ONE (11:15)
[2024-04-24 12:28] VITALS: RESP 16
[2024-04-24] MEDS: morphine 4 MG/ML inj SYRINge IV ONE (12:28)
== END 2024-04-24 12:37 | disposition home or self-care (01) ==
LOC: ER 08:45
DX: G43.909 Migraine, unspecified, not intractable, without status migrainosus (principal); M19.90 Unspecified osteoarthritis, unspecified site; J45.909 Unspecified asthma, uncomplicated; F20.9 Schizophrenia, unspecified; F31.9 Bipolar disorder, unspecified; Z88.8 Allergy status to other drugs, medicaments and biological substances; Z88.0 Allergy status to penicillin; Z88.5 Allergy status to narcotic agent; Z91.041 Radiographic dye allergy status; Z79.899 Other long term (current) drug therapy; Z86.73 Personal history of transient ischemic attack (TIA), and cerebral infarction without residual deficits; Z95.0 Presence of cardiac pacemaker; Z98.890 Other specified postprocedural states; Z87.19 Personal history of other diseases of the digestive system; Z87.891 Personal history of nicotine dependence
CPT/HCPCS: 96372; 96374; 96375; 99284; J1200; J1885; J2270

== ENCOUNTER 2024-05-28 12:11 | Emergency (ER) | payer MEDICARE, MEDICAID ==
[~2024-05-28] VITALS: Ht 170.2 cm; Wt 150.0 kg
[2024-05-28 12:14] VITALS: BP 169/82; PULSE 84; RESP 16; TEMP 97.6; O2SAT 91
[2024-05-28] MEDS ORDERED: HYDR-3965 PO ×2 (13:40→14:04)
== END 2024-05-28 14:26 | disposition home or self-care (01) ==
LOC: ER 12:12
DX: R68.84 Jaw pain (principal); M25.522 Pain in left elbow; G43.909 Migraine, unspecified, not intractable, without status migrainosus; J45.909 Unspecified asthma, uncomplicated; G89.29 Other chronic pain; F20.9 Schizophrenia, unspecified; E11.9 Type 2 diabetes mellitus without complications; F31.9 Bipolar disorder, unspecified; F41.9 Anxiety disorder, unspecified; M19.90 Unspecified osteoarthritis, unspecified site; Z88.0 Allergy status to penicillin; Z86.73 Personal history of transient ischemic attack (TIA), and cerebral infarction without residual deficits; Z88.5 Allergy status to narcotic agent; Z88.8 Allergy status to other drugs, medicaments and biological substances; Z91.041 Radiographic dye allergy status; Z95.0 Presence of cardiac pacemaker; Z98.890 Other specified postprocedural states
CPT/HCPCS: 73080; 99283

== ENCOUNTER 2024-06-03 14:59 | Emergency (ER) | payer MEDICARE, MEDICAID ==
[~2024-06-03] VITALS: Ht 170.2 cm; Wt 152.7 kg
[2024-06-03] MEDS ORDERED: HYDR-3965 PO (17:45)
[2024-06-03] MEDS: clindamycin 150mg capsule PO STA (17:59)
[2024-06-03] MEDS: HYDROcodone/acetaminophen 5mg/325mg tablet PO STA (17:59)
[2024-06-03 18:00] VITALS: BP 134/88; PULSE 88; RESP 18; TEMP 98.9; O2SAT 99
== END 2024-06-03 18:20 | disposition home or self-care (01) ==
LOC: ER 15:00
DX: K08.89 Other specified disorders of teeth and supporting structures (principal); E11.9 Type 2 diabetes mellitus without complications; F20.9 Schizophrenia, unspecified; M19.90 Unspecified osteoarthritis, unspecified site; J45.909 Unspecified asthma, uncomplicated; G43.909 Migraine, unspecified, not intractable, without status migrainosus; F41.9 Anxiety disorder, unspecified; F32.A Depression, unspecified; Z86.73 Personal history of transient ischemic attack (TIA), and cerebral infarction without residual deficits; Z87.19 Personal history of other diseases of the digestive system; Z95.0 Presence of cardiac pacemaker; Z98.890 Other specified postprocedural states; Z88.0 Allergy status to penicillin; Z88.8 Allergy status to other drugs, medicaments and biological substances; Z88.5 Allergy status to narcotic agent; Z91.041 Radiographic dye allergy status; Z79.899 Other long term (current) drug therapy; Z79.1 Long term (current) use of non-steroidal anti-inflammatories (NSAID); Z87.442 Personal history of urinary calculi; Z56.0 Unemployment, unspecified
CPT/HCPCS: 99283

== ENCOUNTER 2024-06-10 19:27 | Emergency (ER) | payer MEDICARE, MEDICAID ==
[~2024-06-10] VITALS: Ht 170.2 cm; Wt 154.1 kg
[2024-06-10 22:34] VITALS: BP 134/78; PULSE 78; RESP 16; TEMP 98.5; O2SAT 99
== END 2024-06-10 22:37 | disposition home or self-care (01) ==
LOC: ER 19:27
DX: M25.512 Pain in left shoulder (principal); M25.522 Pain in left elbow; G43.909 Migraine, unspecified, not intractable, without status migrainosus; J45.909 Unspecified asthma, uncomplicated; F20.9 Schizophrenia, unspecified; E11.9 Type 2 diabetes mellitus without complications; F31.9 Bipolar disorder, unspecified; M19.90 Unspecified osteoarthritis, unspecified site; Z86.73 Personal history of transient ischemic attack (TIA), and cerebral infarction without residual deficits; Z88.0 Allergy status to penicillin; Z88.5 Allergy status to narcotic agent; Z88.8 Allergy status to other drugs, medicaments and biological substances; Z91.041 Radiographic dye allergy status; Z95.0 Presence of cardiac pacemaker; Z98.890 Other specified postprocedural states
CPT/HCPCS: 73080; 99283

== ENCOUNTER 2024-09-04 02:26 | Emergency (ER) | payer MEDICARE, MEDICAID ==
[~2024-09-04] VITALS: Ht 170.2 cm; Wt 156.0 kg
[2024-09-04 02:29] VITALS: BP 121/80; PULSE 73; RESP 17; O2SAT 99
[2024-09-04] MEDS ORDERED: hyDROXYzine 50 mg/ml injection ***IM only IM ONE (03:15)
[2024-09-04] MEDS ORDERED: HYDR-3686 PO (03:21)
[2024-09-04] MEDS: diphenhydrAMINE 50 mg/ml inj IM ONE (03:47)
[2024-09-04 03:53] VITALS: TEMP 98.3
== END 2024-09-04 03:56 | disposition home or self-care (01) ==
LOC: ER 02:27
DX: F41.0 Panic disorder [episodic paroxysmal anxiety] (principal); E11.9 Type 2 diabetes mellitus without complications; F20.9 Schizophrenia, unspecified; F31.9 Bipolar disorder, unspecified; J45.909 Unspecified asthma, uncomplicated; M19.90 Unspecified osteoarthritis, unspecified site; G43.909 Migraine, unspecified, not intractable, without status migrainosus; Z86.73 Personal history of transient ischemic attack (TIA), and cerebral infarction without residual deficits; Z88.0 Allergy status to penicillin; Z88.5 Allergy status to narcotic agent; Z91.041 Radiographic dye allergy status; Z95.0 Presence of cardiac pacemaker; Z88.8 Allergy status to other drugs, medicaments and biological substances; Z98.890 Other specified postprocedural states; Z87.19 Personal history of other diseases of the digestive system
CPT/HCPCS: 96372; 99283; J1200

== ENCOUNTER 2024-10-24 18:46 | Inpatient (IN) | payer MEDICARE, MEDICAID ==
[~2024-10-24] VITALS: Ht 170.2 cm; Wt 163.0 kg
[~2024-10-24 18:46] MED LIST changes: +ZOLP-679 PO; -ZOLP10TA PO
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
[2024-10-24] MEDS ORDERED: QUET400T PO (19:14)
[2024-10-24] MEDS ORDERED: DOCU100C40 PO (19:19)
[2024-10-24] MEDS ORDERED: ONDA-245 PO (19:19)
[2024-10-24] MEDS ORDERED: ZOLP-679 PO (19:19)
[2024-10-24 19:33] LABS: BASOPHILS # (AUTO) 0.1 X10'3 (0-0.2); BASOPHILS % (AUTO) 0.6 % (0-1); EOSINOPHILS # (AUTO) 0.2 X10'3 (0-0.9); EOSINOPHILS % (AUTO) 1.6 % (0-6); HEMATOCRIT 44.6 % (35.0-45.0); HEMOGLOBIN 15.8 g/dl (12.0-16.0); LYMPHOCYTES # (AUTO) 2.4 X10'3 (1.1-4.8); LYMPHOCYTES % (AUTO) 22.3 % (21-51); MEAN CORPUSCULAR HEMOGLOBIN 31.1 PG (27.0-31.0); MEAN CORPUSCULAR HGB CONC 35.3 g/dL (33.0-36.5); MEAN CORPUSCULAR VOLUME 88.1 FL (78-98); MEAN PLATELET VOLUME 8.2 FL (7.4-10.4); MONOCYTES # (AUTO) 0.7 X10'3 (0-0.9); MONOCYTES % (AUTO) 6.4 % (2-12); NEUTROPHILS # (AUTO) 7.5 X10'3 (1.8-7.7); NEUTROPHILS % (AUTO) 69.1 % (42-75); PLATELET COUNT 247 X10'3 (140-440); RED BLOOD COUNT 5.07 X10'6 (4.20-5.60); RED CELL DISTRIBUTION WIDTH 12.7 % (11.5-14.5); WHITE BLOOD COUNT 10.9 X10'3 (4.5-11.0)
[2024-10-24 19:46] LABS: ALBUMIN 4.3 G/DL (3.4-5.0); ANION GAP 8 (8-16); BLOOD UREA NITROGEN 11 MG/DL (7-18); BUN/CREATININE RATIO 13.1 (10.0-20.0); CALCIUM 9.6 MG/DL (8.5-10.1); CHLORIDE 105 MMOL/L (99-107); CREATININE 0.84 MG/DL (0.40-0.90); ETHANOL < 10 MG/DL (<10); GLUCOSE 98 MG/DL (70-104); POTASSIUM 4.1 MMOL/L (3.5-5.1); SODIUM 141 MMOL/L (135-145); THYROID STIMULATING HORMONE 1.15 ulU/ml (0.34-4.50); TOTAL CARBON DIOXIDE 27.9 MMOL/L (24-32); eGFR 74 ML/MIN
[2024-10-24 20:06] LABS: TOTAL CELLS COUNTED 100
[2024-10-24 20:19] LABS: PLATELET ESTIMATE NORMAL
[2024-10-24] MEDS: LAMOTRIGINE 200 MG PO SCH (21:00)
[2024-10-24] MEDS: docusate sod 100mg capsule PO SCH (22:01)
[2024-10-24] MEDS: quetiapine fumarate ER 300mg tablet PO SCH (22:02)
[2024-10-24] MEDS: lamoTRIgine 100mg tablet PO ONE (22:02)
[2024-10-24] MEDS: QUETIAPINE 50 MG TAB.SR.24H PO SCH (22:03)
[2024-10-24] MEDS: zolpidem 5mg tablet PO PRN (22:10)
[2024-10-24 22:18] LABS: BILIRUBIN,URINE NEGATIVE (Neg); CLARITY,URINE SLIGHTLY CLOUDY (Clear); COLOR,URINE YELLOW (Yellow); GLUCOSE, URINE NEGATIVE (Neg); KETONES,URINE TRACE mg/dl (Neg); LEUKOCYTE ESTERASE ,URINE NEGATIVE (Neg); NITRITES, URINE NEGATIVE (Neg); OCCULT BLOOD,URINE NEGATIVE (Neg); PROTEIN,URINE TRACE mg/dl (Neg); UROBILINOGEN,URINE 0.2 E.U/dL (0.2-1.0)
[2024-10-24 22:23] LABS: URINE HCG NEGATIVE (NEG)
[2024-10-24 22:35] LABS: URINE AMPHETAMINE SCREEN NEGATIVE (Neg); URINE BARBITUATE SCREEN NEGATIVE (Neg); URINE BENZODIAZEPINES SCREEN NEGATIVE (Neg); URINE CANNABINOID SCREEN NEGATIVE (Neg); URINE COCAINE SCREEN NEGATIVE (Neg); URINE METHADONE SCREEN NEGATIVE (Neg); URINE OPIATE SCREEN NEGATIVE (Neg); URINE PHENCYCLIDINE SCREEN NEGATIVE (Neg)
[2024-10-24 22:43] LABS: UA COLLECTION TYPE VOIDED
[2024-10-24 22:44] LABS: BACTERIA,URINE FEW /HPF (Neg); RBC,URINE 0-2 /HPF (0-2); SQUAMOUS EPITHELIAL CELL,UR FEW /LPF (FEW); WBC,URINE 0-4 /HPF (0-4)
[2024-10-24 22:45] LABS: MUCUS STRANDS FEW /LPF (Neg)
[2024-10-25] MEDS: HYDROcodone/acetaminophen 10/325mg tab PO ONE (11:35)
[2024-10-25] MEDS: HYDROcodone/acetaminophen 5mg/325mg tablet PO PRN (11:46)
[2024-10-25] MEDS ORDERED: mag hydrox/Alum hydrox/simeth 30ml oral suspension PO PRN (14:45)
[2024-10-25] MEDS ORDERED: acetaminophen 325mg tablet PO PRN (14:45)
[2024-10-25] MEDS ORDERED: loperamide 2mg capsule PO PRN (14:45)
[2024-10-25 16:36] VITALS: BP 139/85; PULSE 78; RESP 12; TEMP 97.6; O2SAT 97
[2024-10-25 17:57] VITALS: RESP 12; O2SAT 97
[2024-10-25 18:41] VITALS: RESP 12; O2SAT 98
[2024-10-25 20:00] VITALS: BP 141/68; PULSE 79; RESP 16; TEMP 98.1; O2SAT 98
[2024-10-25] MEDS ORDERED: DIVA-52 PO (20:03)
[2024-10-25] MEDS: divalproex sod 250mg ER (24-hour) tablet PO SCH (20:22)
[2024-10-25 21:19] VITALS: BP 141/68; PULSE 79; RESP 16; TEMP 98.1; O2SAT 98
[2024-10-26] MEDS: acetaminophen 325mg tablet PO PRN (02:54)
[2024-10-26 08:00] VITALS: BP 120/60; PULSE 70; RESP 16; TEMP 97.6; O2SAT 94
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
[2024-10-26 19:00] VITALS: RESP 18; O2SAT 97
--- NOTE | 2024-10-26 19:28 | HISTORY AND PHYSICAL-Residence ---
History & Physical Providers to CC Resident Creating Document: KALEIGH SPEARSTU ~ History of Present Illness Primary Medical Doctor: Santosh Anderson Reason for Admit\\Complaint: Suicidal ideation History of Present Illness 44 years old female with history of schizophrenia, PTSD depression admitted in mental health unit for psychiatric disturbance and suicide ideation and attempt. According to [facility] she made an attempt yesterday we are at belt and hanging about on a fence with the attempt to choke herself. Patient reported he had history of CVA, TIA, seizure, endometriosis and pacemaker placement due to arrhythmia, degenerative joint disease and Tre Danlos as her reports. Patient is using wheelchair during last five years due to progressive muscle weakness, degenerative joint disease Allergies: Coded Allergies: amphetamine (Verified Allergy, Severe, 10/24/24) "throat closes up" dextroamphetamine (Verified Allergy, Severe, 10/24/24) "throat closes up" lisdexamfetamine (Verified Allergy, Severe, 10/24/24) "throat close up" venlafaxine (Verified Allergy, Severe, ANAPHYLAXSIS, 10/24/24) sertraline (Verified Allergy, Intermediate, 10/28/24) Iodinated Contrast Media (Verified Allergy, Unknown, 10/24/24) Penicillins (Verified Allergy, Unknown, 10/24/24) baclofen (Verified Allergy, Unknown, 06/03/24) cyclobenzaprine (Verified Allergy, Unknown, 06/03/24) gabapentin (Verified Allergy, Unknown, 10/24/24) haloperidol (Unverified Allergy, Unknown, 10/24/24) hydromorphone (Verified Allergy, Unknown, GETS SPOTS AND TONGUE DOES A WEIRD CLAPPING THING, 10/24/24) levetiracetam (Unverified Allergy, Unknown, HALLUCINATIONS, 10/24/24) mirtazapine (Verified Allergy, Unknown, 10/24/24) ziprasidone (Verified Allergy, Unknown, 10/24/24) diazepam (Verified Adverse Reaction, Unknown, 10/24/24) midazolam (Verified Adverse Reaction, Unknown, OPPOSITE EFFECT, 10/24/24) topiramate (Verified Adverse Reaction, Unknown, 10/24/24) Uncoded Allergies: "LIQUID STITCHES" (Allergy, Unknown, 01/02/22) Home Medications Home Medications Active Reported Divalproex Sodium 500 Mg Tablet. 2 Tab PO HS Ambien (Zolpidem Tartrate) 10 Mg Tablet 1 Tab PO HS 30 Days Ondansetron Odt (Ondansetron HCl) 8 Mg Tab.rapdis 1 Tab PO Q6H PRN 3 Days Docusate Sodium 100 Mg Caps 2 Cap PO BID Seroquel (Quetiapine Fumarate) 400 Mg Tablet 2 Tab PO HS 30 Days Lamotrigine ER (Lamotrigine) 200 Mg Tab.er.24 1 Tab PO HS Hydrocodon-Acetaminophn 10-325 tablet (Acetaminophen/Hydrocodone Bitart) 10mg- 325mg Tablet 1 Tab PO TID PRN 30 Days Past Medical History Past Medical History CVA/TIA Tre-Danlos Degenerative joint disease Arrhythmia status post permanent pacemaker placement Endometriosis Past Surgical History Surgical History Comment Laparoscopy for endometriosis Permanent pacemaker initially placed in at age 26. She has had two change outs and a non-ferrous pacemaker was placed in 2015 Tonsillectomy Family History Family History: Diabetes mellitus FATHER FH: Parkinson's disease FAMILY/OTHER (Sister one year ago.), Not a twin FH: arthritis MOTHER FH: dementia FATHER FH: suicide FAMILY/OTHER (Sister one year ago.), Not a twin FHx: mental illness FATHER MOTHER Past Social History Smoking: Quit less than 1 year Alcohol Use: None Drug Use: None Lives with: Family Lives In: Home Occupation: unemployed ROS ROS The history of present illness included a review of system, which yielded relevant positives and negatives Exam Vitals: Vital Signs Date Time Temp Pulse Resp B/P (MAP) Pulse Ox O2 Delivery O2 Flow Rate FiO2 10/26/24 13:45 16 10/26/24 08:00 97.6 70 120/60 (80) 94 Room Air General: General: Awake and Alert, no acute distress, sitting on the wheelchair HEENT: Conjunctiva pink, Sclera clear, Mucus Membranes moist. Neck: Supple without masses and tenderness. Resp: Lungs clear to auscultation bilaterally. Heart: Regular Rate and rhythm, normal S1 and S2 Abdomen: Soft and non tender no organomegaly Extremities: No cyanosis,clubbing or edema. Skin: Warm and Dry. Neurological: Speech is clear, alert, and oriented x 4, no gross neurological deficits Diagnostic Data Last Recorded Lab Results: 10/24/24191410/24/241914 Additional Plan 44 years old female admitted in mental health unit for psychiatric disturbances and suicide ideation/attempt Suicidal ideation and attempt She has affective disorder Followed and managed by psychiatric team Degenerative joint disease Tre Danlos(there is no any documented regarding the diagnosis, patient reported the diagnosis) Using wheelchair due to progressive muscle and joint pain History of SVT ablation many years ago, Arrhythmia, Permanent pacemaker initially placed in at age 26. She has had two change outs and a non-ferrous pacemaker was placed in 2014 Not taking any medication, lipid panel ordered, blood pressure is borderline, continue monitoring we will add blood pressure medication if indicated no complain, patient is not following any chucking machine set up operator tool, we will benefit from pacemaker interrogation, continue monitoring History of seizure Continue home medication lamotrigine Kaleigh Spears MD Internal Medicine Resident Date of Service: Oct 26, 2024 Billing Provider: ANDIE STOCKTON MD Common Visit Codes: [id number] INP/OBS CARE (MOD) KALEIGH SPEARS, RES Oct 26, 2024 19:28 ANDIE STOCKTON MD November 09, 2024 17:51
[2024-10-26 20:00] VITALS: BP 129/75; PULSE 70; RESP 18; TEMP 97.6; O2SAT 97
[2024-10-26] MEDS: ibuprofen 200mg tablet PO PRN (20:38)
[2024-10-27] MEDS: traZODone 50mg tablet PO PRN (02:39)
[2024-10-27 07:00] VITALS: RESP 16; O2SAT 92
[2024-10-27 08:00] VITALS: BP 124/52; PULSE 70; RESP 16; TEMP 98.7; O2SAT 92
[2024-10-27 08:21] LABS: CHOL/HDL RATIO 2.7 (0.00-4.99); CHOLESTEROL 181 MG/DL (0-200); HDL CHOLESTEROL 67 MG/DL (35-60); LDL CHOLESTEROL 87 MG/DL (50-100); TRIGLYCERIDES 141 MG/DL (20-135)
--- NOTE | 2024-10-27 12:11 | PROGRESS NOTE ---
Progress Note Dictate Providers to CC ~ Central Line/PICC still needed: N\\A [place] Indications Met/Not Met: F/C Indications Not Met Antibiotic Ordered?: No Objective Vitals Vital Signs Date Time Temp Pulse Resp B/P (MAP) Pulse Ox O2 Delivery O2 Flow Rate FiO2 10/27/24 08:00 98.7 70 16 124/52 (76) 92 Room Air Lab Results: 10/24/24191410/24/241914 Psychiatrist's Progress Note Date of Service: Oct 27, 2024 Notes CHART REVIEW Myriam Tristan is a 44-year-old female well known to this ED presents for psychiatric disturbances and suicide ideation. According to [facility] she made an attempt yesterday via a belt and hanging about on a fence with the attempt to choke herself. However she was unable to put any tension on on the belt in and did not injure herself. Initially thought that they had a safety plan for her developed however she has had ongoing issues. According to mental health officials, the patient's living situation has become toxic with a toxic landlord which has led to triggering events ultimately attempt on her life or attempting self-harm. ASSESSMENT The patient was interviewed in observation room. The patient was actively sitting in rec room. The patient endorses "I am alright." The patient endorses I been a super bad toxic environment with my project manager senior at home." "She is a live in project manager senior and she has taken my friends to court." The patient endorses she is currently living at [facility] in [place]. The patient endorses "I feel my brain is broken and I am not sure if any hospital can fix it." The patient endorses she is still suicidal but would not elaborate. The patient became quiet with a blank stare. "I am sad I can't be there for friends and I cant stand to watch them to deteriorate. The patient is going on and on about her facility service manager and her toxic environment since this project manager senior started in April. "I am stressed about court on Sunday, I am supposed to be on the stand testifying." "It gives my a lot of anxiety knowing I wont be there." D enies HI. Denies AVH. The patient endorses adequate sleep and food intake. The patient is stable no acute distress noted. The patient is cooperative, anxious, suicidal and engaged during session. Per staff report the patient is medication compliant. The patient seems to be minimizing her symptoms. Per staff report patient participating in group/unit activities. Will continue daily assessment and adjusting treatment as needed. Treatment Results Of any Diagn. Testing REVIEW OF LABS White Blood Count 10.9 Red Blood Count 5.07 Hemoglobin 15.8 Hematocrit 44.6 Platelet Count 247 CMP Sodium Level 141 Potassium Level 4.1 Creatinine 0.84 Estimated GFR 74 Glucose Level 98 Calcium Level 9.6 Albumin 4.3 TSH 1.15 ETOH < 10 UTOX NEG UA NEG COVID NEG HCG NEG Appearnace: Other (APPROPRIATE) Speech: Tangential, Other (CIRCUMSTANTIAL) Eye Contact: Other (INTERMITTENT) Motor Activity: Normal Affect: Labile Mood: Anxious, Depressed Orientation Impairment: None Memory Impairment: None Attention: Distracted Hallucinations: None Other: None Suicidality: Ideation, Plan Homicidality: None Delusions: Paraniod Behavior: Withdrawn Insight: Poor Judgment: Poor Treatment Increase ZOLOFT 50 MG P.O. DAILY SEROQUEL XR 100 MG P.O. Q.H.S. TRAZODONE 50 MG P.O. PRN Q.H.S.-INSOMNIA HYDROXYZINE 50 MG P.O. Q.H.S. PRNANXIETY/AGITATION LAMOTRIGINE 400 MG P.O. Q.H.S. Monitoring by Staff, Milieu, Group, and Individual counseling as needed -- According to the [place] Suicide Assessment the above named patient is on Q15 MINUTE CHECKS. 5150-- DTS-- The patient does not have a good safety plan for discharge at this time. We are still titrating medications to an effective dose while maintaining a therapeutic environment to prevent decompensation and readmission. REVIEW OF Clinical notes [X ] RN notes [X] PCT documentation [X] SW notes Labs [ X] Medications [X] Care trends/care activity [X] Vitals [X] DISCUSSION WITH warning analyst [X] Staff SW [X] Treatment Team [X] Discharge UNSURE AT THIS TIME. DISCHARGE HOME ONCE STABLE. CODING VISIT-PSYCHIATRY Date of Service: Oct 27, 2024 Billing Provider: CATHY ROSADO APRN Psych Common Visit Codes: [id number] INP/OBS CARE(Mod) CATHY ROSADO APRN Oct 27, 2024 12:11
[2024-10-27] MEDS: sertraline 50mg tablet PO SCH (16:27)
[2024-10-27 19:00] VITALS: RESP 16; O2SAT 97
[2024-10-27 20:00] VITALS: BP 107/83; PULSE 79; RESP 16; TEMP 97.7; O2SAT 97
[2024-10-27] MEDS: diphenhydrAMINE 25mg capsule PO STA (22:12)
[2024-10-27] MEDS: magnesium hydroxide 30ml (MOM) UD suspension PO PRN (22:23)
[2024-10-28 07:00] VITALS: RESP 16; O2SAT 94
[2024-10-28 08:00] VITALS: BP 116/75; PULSE 82; RESP 16; TEMP 97.4; O2SAT 94
--- NOTE | 2024-10-28 12:39 | PROGRESS NOTE ---
Progress Note Dictate Providers to CC ~ Central Line/PICC still needed: N\\A Antibiotic Ordered?: No MRSA Education MRSA Education Provided to pt: No Objective Vitals Vital Signs Date Time Temp Pulse Resp B/P (MAP) Pulse Ox O2 Delivery O2 Flow Rate FiO2 10/28/24 08:00 97.4 82 16 116/75 (89) 94 Room Air Lab Results: 10/24/24191410/24/241914 Psychiatrist's Progress Note Date of Service: Oct 28, 2024 Notes CHART REVIEW Myriam Tristan is a 44-year-old female well known to this ED presents for psychiatric disturbances and suicide ideation. According to [facility] she made an attempt yesterday via a belt and hanging about on a fence with the attempt to choke herself. However she was unable to put any tension on on the belt in and did not injure herself. Initially thought that they had a safety plan for her developed however she has had ongoing issues. According to mental health officials, the patient's living situation has become toxic with a toxic landlord which has led to triggering events ultimately attempt on her life or attempting self-harm. ASSESSMENT The patient was interviewed in observation room. The patient was actively resting in bed with eyes closed. The patient endorses I am alright, I am in a little pain that is why I was resting." "I just feel the same way I did yesterday to be honest." "I am still worried about court." "I have no place to go so I have to go back." "I will just have to figure things out." When asked patient if she was still suicidal The patient endorses "Yes." The patient endorses "I don't know how but I can find away." The patient endorses she had an allergic reaction to the zoloft. Denies HI. Denies AVH. The patient endorses adequate sleep and food intake. The patient is stable no acute distress noted. The patient is cooperative, anxious, fidgety, suicidal and engaged during session. Per staff report the patient is medication compliant. The patient seems to be minimizing her symptoms. Per staff report patient participating in group/unit activities. Will continue daily assessment and adjusting treatment as needed. Treatment Results Of any Diagn. Testing REVIEW OF LABS White Blood Count 10.9 Red Blood Count 5.07 Hemoglobin 15.8 Hematocrit 44.6 Platelet Count 247 CMP Sodium Level 141 Potassium Level 4.1 Creatinine 0.84 Estimated GFR 74 Glucose Level 98 Calcium Level 9.6 Albumin 4.3 TSH 1.15 ETOH < 10 UTOX NEG UA NEG COVID NEG HCG NEG Appearnace: Other Speech: Other (CIRCUMSTANTIAL) Eye Contact: Other (INTERMITTENT) Motor Activity: Normal Affect: Flat Mood: Depressed Orientation Impairment: None Memory Impairment: None Attention: Distracted Other: None Suicidality: Ideation, Plan Homicidality: None Delusions: None Behavior: Withdrawn Insight: Poor Judgment: Poor Treatment Discontinue ZOLOFT 50 MG P.O. DAILY-ADD to ALLERGY LIST SEROQUEL XR 100 MG P.O. Q.H.S. TRAZODONE 50 MG P.O. PRN Q.H.S.-INSOMNIA HYDROXYZINE 50 MG P.O. Q.H.S. PRNANXIETY/AGITATION Initiate PROZAC 20MG PO DAILY LAMOTRIGINE 400 MG P.O. Q.H.S. Monitoring by Staff, Milieu, Group, and Individual counseling as needed -- According to the [place] Suicide Assessment the above named patient is on Q15 MINUTE CHECKS. 5250-- DTS-- The patient does not have a good safety plan for discharge at this time. We are still titrating medications to an effective dose while maintaining a therapeutic environment to prevent decompensation and readmission. REVIEW OF Clinical notes [X ] RN notes [X] PCT documentation [X] SW notes Labs [ X] Medications [X] Care trends/care activity [X] Vitals [X] DISCUSSION WITH leadite worker [X] Staff SW [X] Treatment Team [X] Discharge UNSURE AT THIS TIME. DISCHARGE HOME ONCE STABLE. CODING VISIT-PSYCHIATRY Date of Service: Oct 28, 2024 Billing Provider: CATHY ROSADO APRN Psych Common Visit Codes: [id number] INP/OBS CARE(Mod) CATHY ROSADO APRN Oct 28, 2024 12:39
[2024-10-28] MEDS: hydrOXYzine 25 MG tablet PO PRN (14:19)
[2024-10-28 19:00] VITALS: RESP 20; O2SAT 96
[2024-10-28 20:00] VITALS: BP 130/84; PULSE 78; RESP 20; TEMP 97.7; O2SAT 96
--- NOTE | 2024-10-28 20:35 | PROGRESS NOTE- Residence ---
Progress Note - Resident Providers to CC Resident Creating Document: KAELA HERRERA RES ~ Antibiotic Timeout Antibiotic Ordered?: No Subjective Patient was seen in the [facility] unit sitting on the wheelchair and has no special complaints for today. Objective Vital Signs Date Time Temp Pulse Resp B/P (MAP) Pulse Ox O2 Delivery O2 Flow Rate FiO2 10/28/24 08:00 97.4 82 16 116/75 (89) 94 Room Air Result Diagram: 10/24/24191410/24/241914 Vitals were stable at the moment. General: Well alert, well oriented, not confused, not agitated, not in acute distress, well cooperated during the physical. HEENT: Conjunctive are pink, sclerae clear, no icterus, pupil is equal in both sides, reactive to light, no ear discharge, no pharyngeal erythema or an edema, mouth and lips are moist. Neck: Supple, no JVD, no lymphadenopathy and thyromegaly. Lungs:Equal air entry on both lungs, no additional sounds Heart: S1-S2 regular sinus rhythm and, regular rate, no gallops, no rubs, no murmurs Abdomen: No visible peristalsis, Bowel sounds present on auscultation, soft, nontender, no guarding, no rigidity Extremities: No obvious deformities, no pitting edema bilaterally, capillary refill intact, able to wiggle toes both sides, peripheral pulsations are intact on both sides HOT PRESS OPERATOR: No focal neurological deficits, no motor and sensory weakness in all 4 extremities, could move all 4 extremities Musculoskeletal: No joint swelling, deformities, inflammations, and no scoliosis and back tenderness Skin: No active skin lesions and rashes Assessment Assessment 44 years old female with history of schizophrenia, PTSD depression admitted in mental health unit for psychiatric disturbance and suicide ideation and attempt. According to [facility] she made an attempt yesterday we are at belt and hanging about on a fence with the attempt to choke herself. Patient reported he had history of CVA, TIA, seizure, endometriosis and pacemaker placement due to arrhythmia, degenerative joint disease and Tre Danlos as her reports. Patient is using wheelchair during last five years due to progressive muscle weakness, degenerative joint disease Plan Plan # Suicidal ideation and attempt # Affective disorder Followed and managed by psychiatric team # Degenerative joint disease Tre Danlos(there is no any documented regarding the diagnosis, patient reported the diagnosis) Using wheelchair due to progressive muscle and joint pain Control the pain as needed with PO Tylenol # History of SVT ablation many years ago # Arrhythmia # Permanent pacemaker - initially placed in at age 26. She has had two change outs and a non-ferrous pacemaker was placed in 2015 -Not taking any medication, lipid panel ordered, blood pressure is borderline, continue monitoring we will add blood pressure medication if indicated -no complain, patient is not following any director of student services, we will benefit from pacemaker interrogation, continue monitoring #History of seizure Continue home medication lamotrigine Disposition: Continue medical management, and psych mx as per Psych team, appreciate for letting us involve in the pt's care, and hospitalist team are welcomed to have a medical consultation. Resident MD attestation: Patient was seen and examined with attending MD, Dr. José HERRERA MD Internal Medicine Resident, PGY2 [facility] Date of Service: Oct 28, 2024 Billing Provider: DORETHA GOOD MD Common Visit Codes: [id number] INP/OBS CARE(MOD) KAELA HERRERA, RES Oct 28, 2024 20:35 DORETHA GOOD MD Oct 28, 2024 22:14
[2024-10-28] MEDS: hydrOXYzine 25 MG tablet PO ONE (21:33)
[2024-10-29 07:30] VITALS: BP 101/65; PULSE 70; RESP 16; TEMP 97.6; O2SAT 95
[2024-10-29] MEDS: FLUoxetine 20mg capsule PO SCH (07:36)
[2024-10-29 08:00] VITALS: RESP 16; O2SAT 95
--- NOTE | 2024-10-29 11:38 | PROGRESS NOTE ---
Progress Note Dictate Providers to CC ~ Central Line/PICC still needed: N\\A Antibiotic Ordered?: No MRSA Education MRSA Education Provided to pt: No Objective Vitals Vital Signs Date Time Temp Pulse Resp B/P (MAP) Pulse Ox O2 Delivery O2 Flow Rate FiO2 10/29/24 07:36 16 10/29/24 07:30 97.6 70 101/65 (77) 95 Room Air Psychiatrist's Progress Note Date of Service: Oct 29, 2024 Notes CHART REVIEW Myriam Tristan is a 44-year-old female well known to this ED presents for psychiatric disturbances and suicide ideation. According to [facility] she made an attempt yesterday via a belt and hanging about on a fence with the attempt to choke herself. However she was unable to put any tension on on the belt in and did not injure herself. Initially thought that they had a safety plan for her developed however she has had ongoing issues. According to mental health officials, the patient's living situation has become toxic with a toxic landlord which has led to triggering events ultimately attempt on her life or attempting self-harm. ASSESSMENT The patient was interviewed in observation room. The patient was actively resting in bed with eyes closed. The patient endorses "I am anxious and worried about what happened in court today." Endorses that her friend is supposed to call her later today to give her an update on court. The patient endorses "I will be really sad if things do not groover and turner how I want it too." "I am glad I am here just in case, a safe place." Suicidal with no plan. Denies HI. Denies AVH. The patient endorses adequate sleep and food intake. The patient is stable no acute distress noted. The patient is cooperative,a bit anxious, fidgety, suicidal and engaged during session. Per staff report the patient is medication compliant. Per staff report patient participating in group/unit activities. Will continue daily assessment and adjusting treatment as needed. Results Of any Diagn. Testing REVIEW OF LABS White Blood Count 10.9 Red Blood Count 5.07 Hemoglobin 15.8 Hematocrit 44.6 Platelet Count 247 CMP Sodium Level 141 Potassium Level 4.1 Creatinine 0.84 Estimated GFR 74 Glucose Level 98 Calcium Level 9.6 Albumin 4.3 TSH 1.15 ETOH < 10 UTOX NEG UA NEG COVID NEG HCG NEG Appearnace: Other Speech: Other (CIRCUMSTANTIAL) Eye Contact: Avoidant Motor Activity: Normal Affect: Flat Mood: Depressed Orientation Impairment: None Memory Impairment: None Attention: Distracted Hallucinations: None Other: None Suicidality: Ideation Homicidality: None Delusions: None Behavior: Withdrawn Insight: Poor Judgment: Poor Treatment SEROQUEL XR 100 MG P.O. Q.H.S. TRAZODONE 50 MG P.O. PRN Q.H.S.-INSOMNIA HYDROXYZINE 50 MG P.O. Q.H.S. PRNANXIETY/AGITATION PROZAC 20MG PO DAILY LAMOTRIGINE 400 MG P.O. Q.H.S. Monitoring by Staff, Milieu, Group, and Individual counseling as needed -- According to the [place] Suicide Assessment the above named patient is on Q15 MINUTE CHECKS. 5250-- DTS-- The patient does not have a good safety plan for discharge at this time. We are still titrating medications to an effective dose while maintaining a therapeutic environment to prevent decompensation and readmission. REVIEW OF Clinical notes [X ] RN notes [X] PCT documentation [X] SW notes Labs [ X] Medications [X] Care trends/care activity [X] Vitals [X] DISCUSSION WITH devops developer [X] Staff SW [X] Treatment Team [X] Discharge UNSURE AT THIS TIME. PATIENT WILL DISCHARGE BACK TO LONG-TERM ONCE STABLE CODING VISIT-PSYCHIATRY Date of Service: Oct 29, 2024 Billing Provider: CATHY ROSADO APRN Psych Common Visit Codes: [id number] INP/OBS CARE(Mod) CATHY ROSADO APRN Oct 29, 2024 11:37
[2024-10-29] MEDS: sertraline 25mg tablet PO SCH (12:13)
[2024-10-29] MEDS: LAMOTRIGINE 200 MG PO SCH (12:14)
[2024-10-29 19:00] VITALS: RESP 18; O2SAT 93
[2024-10-29 20:00] VITALS: BP 139/81; PULSE 71; RESP 18; TEMP 97.7; O2SAT 93
[2024-10-30] MEDS: ondansetron 4mg rapidly disintigrating tab PO PRN (05:19)
[2024-10-30 07:00] VITALS: BP 106/52; PULSE 72; RESP 16; TEMP 98.1; O2SAT 72
[2024-10-30 08:00] VITALS: RESP 16; O2SAT 93
--- NOTE | 2024-10-30 08:20 | PROGRESS NOTE ---
Progress Note Dictate Providers to CC ~ Central Line/PICC still needed: N\\A Antibiotic Ordered?: No MRSA Education MRSA Education Provided to pt: No Objective Vitals Vital Signs Date Time Temp Pulse Resp B/P (MAP) Pulse Ox O2 Delivery O2 Flow Rate FiO2 10/30/24 06:20 14 10/29/24 20:00 97.7 71 139/81 (100) 93 Room Air Psychiatrist's Progress Note Date of Service: October 30, 2024 Notes CHART REVIEW Myriam Tristan is a 44-year-old female well known to this ED presents for psychiatric disturbances and suicide ideation. According to [facility] she made an attempt yesterday via a belt and hanging about on a fence with the attempt to choke herself. However she was unable to put any tension on on the belt in and did not injure herself. Initially thought that they had a safety plan for her developed however she has had ongoing issues. According to mental health officials, the patient's living situation has become toxic with a toxic landlord which has led to triggering events ultimately attempt on her life or attempting self-harm. ASSESSMENT The patient was interviewed in observation room. The patient was actively resting in bed with eyes closed. The patient endorses "I am here." The patient endorses court was continued so that sucks because she is going to try abd screw over one over until then." "Her dog tried to attack my friends dog and animal control is not doing shit about." "I just want to go home and fall asleep and never wake up, I cant deal with this shit anymore." "I have to go home at some point." "I wasn't this depressed when my sister committed suicide." Denies HI. Denies AVH. The patient endorses adequate sleep and food intake. The patient is stable no acute distress noted. The patient is depressed, very anxious, fidgety, suicidal and engaged during session. The patient became tearful during session. Per staff report the patient is medication compliant. Per staff report patient participating in group/unit activities. Will continue daily assessment and adjusting treatment as needed. Results Of any Diagn. Testing REVIEW OF LABS White Blood Count 10.9 Red Blood Count 5.07 Hemoglobin 15.8 Hematocrit 44.6 Platelet Count 247 CMP Sodium Level 141 Potassium Level 4.1 Creatinine 0.84 Estimated GFR 74 Glucose Level 98 Calcium Level 9.6 Albumin 4.3 TSH 1.15 ETOH < 10 UTOX NEG UA NEG COVID NEG HCG NEG Speech: Other (CIRCUMSTANTIAL) Eye Contact: Avoidant Motor Activity: Normal Affect: Labile Mood: Anxious, Depressed Orientation Impairment: None Memory Impairment: None Attention: Distracted Hallucinations: None Other: None Suicidality: Ideation Homicidality: None Delusions: None Behavior: Cooperative Insight: Poor Judgment: Poor Treatment SEROQUEL XR 100 MG P.O. Q.H.S. TRAZODONE 50 MG P.O. PRN Q.H.S.-INSOMNIA HYDROXYZINE 50 MG P.O. Q.H.S. PRNANXIETY/AGITATION Increase PROZAC 40MG PO DAILY LAMOTRIGINE 400 MG P.O. Q.H.S. Monitoring by Staff, Milieu, Group, and Individual counseling as needed -- According to the [place] Suicide Assessment the above named patient is on Q15 MINUTE CHECKS. 5250-- DTS-- The patient does not have a good safety plan for discharge at this time. We are still titrating medications to an effective dose while maintaining a therapeutic environment to prevent decompensation and readmission. REVIEW OF Clinical notes [X ] RN notes [X] PCT documentation [X] SW notes Labs [ X] Medications [X] Care trends/care activity [X] Vitals [X] DISCUSSION WITH science technician [X] Staff SW [X] Treatment Team [X] Discharge UNSURE AT THIS TIME. PATIENT WILL DISCHARGE BACK TO DETENTION ONCE STABLE CODING VISIT-PSYCHIATRY Date of Service: October 30, 2024 Billing Provider: CATHY ROSADO APRN Psych Common Visit Codes: [id number] INP/OBS CARE(Mod) CATHY ROSADO APRN October 30, 2024 08:20
[2024-10-30] MEDS: LORazepam 1 MG tablet PO ONE (14:27)
--- NOTE | 2024-10-30 17:29 | PROGRESS NOTE- Residence ---
Progress Note - Resident Providers to CC Resident Creating Document: PRICILLA MÁRQUEZ RES ~ Antibiotic Timeout Antibiotic Ordered?: No Subjective Patient was seen and examined at [facility]. Denied medical complaints. Patient requested to increase her frequency of [place] to q.6 H. Objective Vital Signs Date Time Temp Pulse Resp B/P (MAP) Pulse Ox O2 Delivery O2 Flow Rate FiO2 10/30/24 12:24 14 10/30/24 08:00 93 Room Air 10/30/24 07:00 98.1 72 106/52 (70) Awake , alert, and oriented x4, resting comfortably in the bed, in no acute distress HEENT: Atraumatic, normocephalic, EOMI, anicteric sclera ; pink conjunctiva Neck: Trachea midline. Supple, full range of motion, no JVD Cardiac: Regular rhythm, regular rate with no murmurs all over the precordium. Respiratory: Equal breath sounds bilaterally, no tachypnea, no wheezing ,rub or rales, Chest wall is symmetric and without deformity. Gastrointestinal: Abdomen symmetric, non-distended, soft, non-tender, normal bowel sounds x4 quadrant, normoactive, no hepatosplenomegaly Musculoskeletal: No pedal edema Neurological: Speech is clear, alert, and oriented x 4. No motor or sensory deficit, deep tendon reflexes normal, cerebellar intact. Cranial nerves II-XII intact. Skin: Warm and dry Assessment Assessment 44 years old female with history of schizophrenia, PTSD depression admitted in mental health unit for psychiatric disturbance and suicide ideation and attempt. According to [facility] she made an attempt yesterday we are at belt and hanging about on a fence with the attempt to choke herself. Patient reported he had history of CVA, TIA, seizure, endometriosis and pacemaker placement due to arrhythmia, degenerative joint disease and Tre Danlos as her reports. 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
[2024-10-30 19:00] VITALS: RESP 16; O2SAT 98
[2024-10-30] MEDS: HYDROcodone/acetaminophen 5mg/325mg tablet PO PRN (19:46)
[2024-10-30 20:00] VITALS: BP 120/68; PULSE 70; RESP 16; TEMP 98.2; O2SAT 98
[2024-10-31 07:00] VITALS: RESP 18; O2SAT 98
[2024-10-31 08:00] VITALS: BP 105/60; PULSE 61; RESP 18; TEMP 97.2; O2SAT 98
[2024-10-31] MEDS: FLUoxetine 20mg capsule PO SCH (08:33)
--- NOTE | 2024-10-31 08:49 | PROGRESS NOTE ---
Progress Note Dictate Providers to CC ~ Central Line/PICC still needed: N\\A Antibiotic Ordered?: No MRSA Education MRSA Education Provided to pt: No Objective Vitals Vital Signs Date Time Temp Pulse Resp B/P (MAP) Pulse Ox O2 Delivery O2 Flow Rate FiO2 10/31/24 08:33 16 10/30/24 20:00 98.2 70 120/68 (85) 98 Room Air Psychiatrist's Progress Note Date of Service: October 31, 2024 Notes CHART REVIEW Myriam Tristan is a 44-year-old female well known to this ED presents for psychiatric disturbances and suicide ideation. According to [facility] she made an attempt yesterday via a belt and hanging about on a fence with the attempt to choke herself. However she was unable to put any tension on on the belt in and did not injure herself. Initially thought that they had a safety plan for her developed however she has had ongoing issues. According to mental health officials, the patient's living situation has become toxic with a toxic landlord which has led to triggering events ultimately attempt on her life or attempting self-harm. ASSESSMENT The patient was interviewed in observation room. The patient was actively sitting in wheelchair talking on the telephone. The patient endorses "I am feeling a little better but I still don't feel I want to be here." The patient endorses no plan. Denies HI. Denies AVH. The patient endorses adequate sleep and food intake. The patient is stable no acute distress noted. The patient is depressed, less anxious, less fidgety, suicidal and engaged during session. Per staff report no abnormal behaviors noted Per staff report the patient is medication compliant. Per staff report patient participating in group/unit activities. Will continue daily assessment and adjusting treatment as needed. Results Of any Diagn. Testing REVIEW OF LABS White Blood Count 10.9 Red Blood Count 5.07 Hemoglobin 15.8 Hematocrit 44.6 Platelet Count 247 CMP Sodium Level 141 Potassium Level 4.1 Creatinine 0.84 Estimated GFR 74 Glucose Level 98 Calcium Level 9.6 Albumin 4.3 TSH 1.15 ETOH < 10 UTOX NEG UA NEG COVID NEG HCG NEG Appearnace: Other Speech: Other (CIRCUMSTANTIAL) Eye Contact: Avoidant Motor Activity: Normal Affect: Flat Mood: Anxious, Depressed Orientation Impairment: None Memory Impairment: None Attention: Normal, Distracted Hallucinations: None Other: None Suicidality: Ideation Homicidality: None Delusions: None Behavior: Withdrawn Insight: Poor Judgment: Poor Treatment SEROQUEL XR 900 MG P.O. Q.H.S. TRAZODONE 50 MG P.O. PRN Q.H.S.-INSOMNIA HYDROXYZINE 50 MG P.O. Q.H.S. PRNANXIETY/AGITATION Increase PROZAC 40MG PO DAILY LAMOTRIGINE 400 MG P.O. Q.H.S. Monitoring by Staff, Milieu, Group, and Individual counseling as needed -- According to the [place] Suicide Assessment the above named patient is on Q15 MINUTE CHECKS. 5250-- DTS-- The patient does not have a good safety plan for discharge at this time. We are still titrating medications to an effective dose while maintaining a therapeutic environment to prevent decompensation and readmission. REVIEW OF Clinical notes [X ] RN notes [X] PCT documentation [X] SW notes Labs [ X] Medications [X] Care trends/care activity [X] Vitals [X] DISCUSSION WITH linux programmer [X] Staff SW [X] Treatment Team [X] Discharge UNSURE AT THIS TIME. PATIENT WILL DISCHARGE BACK TO ASSISTED ONCE STABLE CODING VISIT-PSYCHIATRY Date of Service: October 31, 2024 Billing Provider: CATHY ROSADO APRN Psych Common Visit Codes: [id number] INP/OBS CARE(Mod) CATHY ROSADO APRN October 31, 2024 08:49
[2024-10-31] MEDS: LORazepam 1 MG tablet PO ONE ×2 (15:48→15:49)
[2024-10-31 19:00] VITALS: RESP 16; O2SAT 95
[2024-10-31 20:00] VITALS: BP 113/61; PULSE 71; RESP 15; TEMP 98.5; O2SAT 95
[2024-10-31] MEDS: divalproex sod 250mg ER (24-hour) tablet PO SCH (20:29)
[2024-11-01 07:00] VITALS: RESP 16; O2SAT 93
[2024-11-01 08:00] VITALS: BP 120/64; PULSE 73; RESP 16; TEMP 97.6; O2SAT 93
--- NOTE | 2024-11-01 10:48 | PROGRESS NOTE ---
Daily Progress Note Providers to CC No new complaint today, resting comfortably in the bed ~ Central Line/PICC still needed: No Landin-Non Protocol Landin Indications Met/Not Met: F/C Indications Not Met Antibiotic Timeout Antibiotic Ordered?: No MRSA Education MRSA Education Provided to pt: No Subjective As above Objective Vital Signs Date Time Temp Pulse Resp B/P (MAP) Pulse Ox O2 Delivery O2 Flow Rate FiO2 11/01/24 08:31 16 10/31/24 20:00 98.5 71 113/61 (78) 95 Room Air Vital signs, stable ,afebrile. Pulse Oximetry reflects adequate oxygenation. BMI is 52, weight 151 kg General: well developed, well nourished. Awake , alert, and oriented x4, resting comfortably in the bed, in no acute distress . Skin: Warm, dry, no pallor, no rash or petechiae. HEENT: Atraumatic, normocephalic, EOMI, anicteric sclera B; pink conjunctiva; PERRLA, normal oropharynx, moist oral and nasal mucosa. Tympanic membrane , nose , throat clear. Neck: Trachea midline. Supple, full range of motion, no JVD, bruit , hepatojugular reflex , lymphadenopathy or masses, or other lesions Cardiac: Regular rhythm, regular rate no murmurs, rubs, or gallops. Normal S1 and S2, no S3 noticed. PMI is normal. Respiratory: Equal breath sounds bilaterally, no tachypnea; lungs clear to auscultation bilaterally, no wheezing ,rub or rales, or crackles. Chest wall is symmetric and without deformity. No signs of trauma. Chest wall is nontender. No signs of respiratory distress. Resonance is normal upon percussion bilaterally. Gastrointestinal: Abdomen symmetric, non-distended, soft, non-tender, normal bowel sounds x4 quadrant, normoactive, no hepatosplenomegaly , no masses , no bruit, no flank pain bilaterally. No voluntary guarding, rebound, or rigidity. No tenderness to percussion. No pulsatile masses. Equal femoral pulses. No Plasencia's sign or McBurney point tenderness. Back; no CVA tenderness bilaterally, no deformities. Neck and back are without deformity as well. No tenderness noted on palpation of the spinous processes. Spinous processes are midline. Cervical, thoracic, and lumbar paraspinal muscles are not tender and are without spasm. Musculoskeletal: Extremities, normal range of motion, non-tender, muscle strength 5/5 x 4. Negative Homans signs bilaterally on lower extremity. Distal pulses full symmetrical, no clubbing, cyanosis , edema. Neurological: Speech is clear, alert, and oriented x 4. No motor or sensory deficit, deep tendon reflexes normal, cerebellar intact. Cranial nerves II-XII intact. Psych: Alert and or appropriate, normal affect. Vascular: Good distal pulses, which are equal x4; capillary refill less than 2 seconds. Lymphatic, no lymphadenopathy. 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 Pain management: [place] t.i.d., increased to q.6 H Morbid obesity BMI 52, Nutrition consult # History of SVT ablation many years ago # Arrhythmia # Permanent pacemaker Not taking any medication, lipid panel: Elevated triglycerides Has no cheesemaker outpatient Lifestyle modification and weight management Follow up with PCP, an adviced to add statin #History of seizure Continue home medication lamotrigine Sepsis Screening Reassessment Date: November 01, 2024 Date of Service: November 01, 2024 Billing Provider: DEREK SMITH MD Common Visit Codes: [id number] INP/OBS CARE(LOW) DEREK SMITH MD November 01, 2024 10:48
--- NOTE | 2024-11-01 18:48 | PROGRESS NOTE ---
Progress Note Dictate Providers to CC ~ Central Line/PICC still needed: N\\A Antibiotic Ordered?: No MRSA Education MRSA Education Provided to pt: No Objective Vitals Vital Signs Date Time Temp Pulse Resp B/P (MAP) Pulse Ox O2 Delivery O2 Flow Rate FiO2 11/01/24 17:37 16 11/01/24 08:00 97.6 73 120/64 (82) 93 Room Air Psychiatrist's Progress Note Date of Service: November 02, 2024 Notes CHART REVIEW Myriam Tristan is a 44-year-old female well known to this ED presents for psychiatric disturbances and suicide ideation. According to [facility] she made an attempt yesterday via a belt and hanging about on a fence with the attempt to choke herself. However she was unable to put any tension on on the belt in and did not injure herself. Initially thought that they had a safety plan for her developed however she has had ongoing issues. According to mental health officials, the patient's living situation has become toxic with a toxic landlord which has led to triggering events ultimately attempt on her life or attempting self-harm. ASSESSMENT The patient was interviewed in observation room. The patient was actively resting in bed with eyes open. The patient endorses "better." Denies SI. Denies HI. Denies AVH. The patient endorses adequate sleep and food intake. The patient is stable no acute distress noted. The patient is less depressed, less anxious, less fidgety, and engaged during session. Per staff report no abnormal behaviors noted Per staff report the patient is medication compliant. Per staff report patient participating in group/unit activities. Will continue daily assessment and adjusting treatment as needed. Results Of any Diagn. Testing REVIEW OF LABS White Blood Count 10.9 Red Blood Count 5.07 Hemoglobin 15.8 Hematocrit 44.6 Platelet Count 247 CMP Sodium Level 141 Potassium Level 4.1 Creatinine 0.84 Estimated GFR 74 Glucose Level 98 Calcium Level 9.6 Albumin 4.3 TSH 1.15 ETOH < 10 UTOX NEG UA NEG COVID NEG HCG NEG Appearnace: Other Speech: Other (CIRCUMSTANTIAL) Eye Contact: Other (INTERMITTENT) Motor Activity: Normal Affect: Full Orientation Impairment: None Memory Impairment: None Attention: Normal Hallucinations: None Other: None Suicidality: None Homicidality: None Delusions: None Behavior: Cooperative Insight: Poor Judgment: Poor Treatment SEROQUEL XR 900 MG P.O. Q.H.S. TRAZODONE 50 MG P.O. PRN Q.H.S.-INSOMNIA HYDROXYZINE 50 MG P.O. Q.H.S. PRNANXIETY/AGITATION PROZAC 40MG PO DAILY LAMOTRIGINE 400 MG P.O. Q.H.S. Monitoring by Staff, Milieu, Group, and Individual counseling as needed -- According to the [place] Suicide Assessment the above named patient is on Q15 MINUTE CHECKS. 5250-- DTS-- The patient does not have a good safety plan for discharge at this time. We are still titrating medications to an effective dose while maintaining a therapeutic environment to prevent decompensation and readmission. REVIEW OF Clinical notes [X ] RN notes [X] PCT documentation [X] SW notes Labs [ X] Medications [X] Care trends/care activity [X] Vitals [X] DISCUSSION WITH transportation modeler [X] Staff SW [X] Treatment Team [X] Discharge UNSURE AT THIS TIME. PATIENT WILL DISCHARGE BACK TO RESIDENTIAL ONCE STABLE CODING VISIT-PSYCHIATRY Date of Service: November 01, 2024 Billing Provider: CATHY ROSADO APRN Psych Common Visit Codes: [id number] INP/OBS CARE(Mod) CATHY ROSADO APRN November 01, 2024 18:48
[2024-11-01 19:00] VITALS: RESP 18; O2SAT 98
[2024-11-01 20:00] VITALS: BP 134/64; PULSE 69; RESP 18; TEMP 98.2; O2SAT 98
[2024-11-01] MEDS: LAMOTRIGINE 200 MG PO SCH (21:09)
[2024-11-02 07:00] VITALS: RESP 17; O2SAT 95
[2024-11-02 08:00] VITALS: BP 136/86; PULSE 68; RESP 17; TEMP 97.1; O2SAT 95
--- NOTE | 2024-11-02 08:47 | PROGRESS NOTE ---
Progress Note Dictate Providers to CC ~ Central Line/PICC still needed: N\\A Antibiotic Ordered?: No MRSA Education MRSA Education Provided to pt: No Objective Vitals Vital Signs Date Time Temp Pulse Resp B/P (MAP) Pulse Ox O2 Delivery O2 Flow Rate FiO2 11/02/24 08:00 97.1 68 17 136/86 (103) 95 Room Air Psychiatrist's Progress Note Date of Service: November 02, 2024 Notes CHART REVIEW Myriam Tristan is a 44-year-old female well known to this ED presents for psychiatric disturbances and suicide ideation. According to [facility] she made an attempt yesterday via a belt and hanging about on a fence with the attempt to choke herself. However she was unable to put any tension on on the belt in and did not injure herself. Initially thought that they had a safety plan for her developed however she has had ongoing issues. According to mental health officials, the patient's living situation has become toxic with a toxic landlord which has led to triggering events ultimately attempt on her life or attempting self-harm. ASSESSMENT The patient was interviewed in observation room. The patient was actively resting in bed with eyes closed. The patient endorses "I am not doing good today." "I am suicidal with a plan to take my old wheelchair to the was in hang myself." Denies HI. Denies AVH. The patient endorses adequate sleep and food intake. The patient is stable no acute distress noted. The patient is depressed, cooperative, and engaged during session. Per staff report no abnormal behaviors noted Per staff report the patient is medication compliant. Per staff report patient participating in group/unit activities. Will continue daily assessment and adjusting treatment as needed. Results Of any Diagn. Testing REVIEW OF LABS White Blood Count 10.9 Red Blood Count 5.07 Hemoglobin 15.8 Hematocrit 44.6 Platelet Count 247 CMP Sodium Level 141 Potassium Level 4.1 Creatinine 0.84 Estimated GFR 74 Glucose Level 98 Calcium Level 9.6 Albumin 4.3 TSH 1.15 ETOH < 10 UTOX NEG UA NEG COVID NEG HCG NEG Appearnace: Other Speech: Impoverished Eye Contact: Avoidant Motor Activity: Normal Affect: Flat Mood: Depressed Orientation Impairment: None Memory Impairment: None Attention: Distracted Hallucinations: None Other: None Suicidality: Ideation, Plan Homicidality: None Delusions: None Behavior: Guarded Insight: Poor Judgment: Poor Treatment SEROQUEL XR 900 MG P.O. Q.H.S. TRAZODONE 50 MG P.O. PRN Q.H.S.-INSOMNIA HYDROXYZINE 50 MG P.O. Q.H.S. PRNANXIETY/AGITATION Increase PROZAC 60MG PO DAILY LAMOTRIGINE 400 MG P.O. Q.H.S. Monitoring by Staff, Milieu, Group, and Individual counseling as needed -- According to the [place] Suicide Assessment the above named patient is on Q15 MINUTE CHECKS. 5250-- DTS-- The patient does not have a good safety plan for discharge at this time. We are still titrating medications to an effective dose while maintaining a therapeutic environment to prevent decompensation and readmission. REVIEW OF Clinical notes [X ] RN notes [X] PCT documentation [X] SW notes Labs [ X] Medications [X] Care trends/care activity [X] Vitals [X] DISCUSSION WITH parking control officer [X] Staff SW [X] Treatment Team [X] Discharge UNSURE AT THIS TIME. PATIENT WILL DISCHARGE BACK TO LONGTERM ONCE STABLE CODING VISIT-PSYCHIATRY Date of Service: November 02, 2024 Billing Provider: CATHY ROSADO APRN Psych Common Visit Codes: [id number] INP/OBS CARE(Mod) CATHY ROSADO APRN November 02, 2024 08:47
[2024-11-02 11:00] VITALS: TEMP 98.8
[2024-11-02 19:00] VITALS: RESP 18; O2SAT 94
[2024-11-02] MEDS: pantoprazole 40mg Tablet.DR PO ONE (19:15)
[2024-11-02 20:00] VITALS: BP 145/61; PULSE 73; RESP 18; TEMP 97.8; O2SAT 94
[2024-11-02] MEDS: diphenhydrAMINE 25 MG/10 ML UD oral solution PO ONE (22:10)
[2024-11-03 07:00] VITALS: RESP 16; O2SAT 92
[2024-11-03] MEDS: FLUoxetine 20mg capsule PO SCH (07:29)
[2024-11-03 08:00] VITALS: BP 101/53; PULSE 76; RESP 16; TEMP 99.4; O2SAT 92
--- NOTE | 2024-11-03 14:01 | PROGRESS NOTE ---
Progress Note Dictate Providers to CC ~ Antibiotic Ordered?: No MRSA Education MRSA Education Provided to pt: No Objective Vitals Vital Signs Date Time Temp Pulse Resp B/P (MAP) Pulse Ox O2 Delivery O2 Flow Rate FiO2 11/03/24 08:00 99.4 76 16 101/53 (69) 92 Room Air Psychiatrist's Progress Note Date of Service: November 03, 2024 Notes CHART REVIEW Myriam Tristan is a 44-year-old female well known to this ED presents for psychiatric disturbances and suicide ideation. According to [facility] she made an attempt yesterday via a belt and hanging about on a fence with the attempt to choke herself. However she was unable to put any tension on on the belt in and did not injure herself. Initially thought that they had a safety plan for her developed however she has had ongoing issues. According to mental health officials, the patient's living situation has become toxic with a toxic landlord which has led to triggering events ultimately attempt on her life or attempting self-harm. ASSESSMENT The patient was interviewed in observation room. The patient was actively resting in bed with eyes closed. The patient endorses "I had a bad reaction to the medication." "I started having blurred vision; at first I thought it was just a headache." "Today it is better because I didn't take it last night." "i am tired of feeling like a prisoner in my own mind." 'I cant get it out of my head that I don't want to be here." "If I did commit suicide my friend can ariel [facility] and they would never have to worry about money again." "I will hang myself I wasn't able to succeed the last time but my friend saved me." "I also thought about the way my sister went but I don't think I want to go that way." "Sometimes we just have to life as much you can till you break." Denies HI. Denies AVH. The patient endorses adequate sleep and food intake. The patient is stable no acute distress noted. The patient is depressed, suicidal, and engaged during session. Per staff report no abnormal behaviors noted. Per staff report patient has been refusing her Prozac. Per staff report patient participating in group/unit activities. Will continue daily assessment and adjusting treatment as needed. Results Of any Diagn. Testing REVIEW OF LABS White Blood Count 10.9 Red Blood Count 5.07 Hemoglobin 15.8 Hematocrit 44.6 Platelet Count 247 CMP Sodium Level 141 Potassium Level 4.1 Creatinine 0.84 Estimated GFR 74 Glucose Level 98 Calcium Level 9.6 Albumin 4.3 TSH 1.15 ETOH < 10 UTOX NEG UA NEG COVID NEG HCG NEG Appearnace: Other Speech: Other (CIRCUMSTANTIAL) Eye Contact: Avoidant Motor Activity: Normal Affect: Flat Mood: Depressed Orientation Impairment: None Memory Impairment: None Attention: Normal Hallucinations: None Other: None Suicidality: Ideation, Plan Homicidality: None Delusions: None Behavior: Withdrawn Insight: Poor Judgment: Poor Treatment SEROQUEL XR 900 MG P.O. Q.H.S. TRAZODONE 50 MG P.O. PRN Q.H.S.-INSOMNIA HYDROXYZINE 50 MG P.O. Q.H.S. PRNANXIETY/AGITATION Increase PROZAC 60MG PO DAILY LAMOTRIGINE 400 MG P.O. Q.H.S. Monitoring by Staff, Milieu, Group, and Individual counseling as needed -- According to the [place] Suicide Assessment the above named patient is on Q15 MINUTE CHECKS. 5250-- DTS-- The patient does not have a good safety plan for discharge at this time. We are still titrating medications to an effective dose while maintaining a therapeutic environment to prevent decompensation and readmission. REVIEW OF Clinical notes [X ] RN notes [X] PCT documentation [X] SW notes Labs [ X] Medications [X] Care trends/care activity [X] Vitals [X] DISCUSSION WITH physician industrial [X] Staff SW [X] Treatment Team [X] Discharge UNSURE AT THIS TIME. PATIENT WILL DISCHARGE BACK TO [facility] ONCE STABLE CODING VISIT-PSYCHIATRY Date of Service: November 03, 2024 Billing Provider: CATHY ROSADO APRN Psych Common Visit Codes: [id number] INP/OBS CARE(Mod) CATHY ROSADO APRN November 03, 2024 14:01
--- NOTE | 2024-11-03 18:34 | PROGRESS NOTE- Residence ---
Progress Note - Resident Providers to CC Resident Creating Document: LEONARDO SAUCEDO, TU ~ Central Line/PICC still needed: No Landin-Non Protocol Landin Indications Met/Not Met: F/C Indications Not Met Antibiotic Timeout Antibiotic Ordered?: No Subjective Patient was seen and examined at [facility]. Complains of occasional pain and request to increase her Hasty dosing to 10 mg t.i.d.. Nausea and retching reportedly improved after Benadryl Objective Vital Signs Date Time Temp Pulse Resp B/P (MAP) Pulse Ox O2 Delivery O2 Flow Rate FiO2 11/03/24 16:31 16 11/03/24 08:00 99.4 76 101/53 (69) 92 Room Air General: Awake and Alert, no acute distress. Morbidly obese Resp: Unlabored. Lungs clear to auscultation bilaterally. Heart: Regular Rate and rhythm, normal S1 and S2 without murmur, rub or gallop. Abdomen: Soft and non tender no organomegaly Extremities: No cyanosis,clubbing or edema. Skin: Warm and Dry. Scar on her left upper extremity, seems like a optics technical officer Assessment Assessment 44 years old female with history of schizophrenia, PTSD depression admitted in mental health unit for psychiatric disturbance and suicide ideation and attempt. According to [facility] she made an attempt yesterday we are at belt and hanging about on a fence with the attempt to choke herself. Patient reported he had history of CVA, TIA, seizure, endometriosis and pacemaker placement due to arrhythmia, degenerative joint disease and Tre Danlos as her reports. 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 Increased it to the same # History of SVT ablation many years ago # Arrhythmia # Permanent pacemaker Not taking any medication, lipid panel: Elevated triglycerides Has no manager party outpatient Lifestyle modification and weight management Follow up with PCP, an adviced to add statin #History of seizure Continue home medication lamotrigine #History of apparent stroke- not on any anticoagulation; request records from Dr. Mukesh Saucedo PGY2, Internal medicine resident Date of Service: November 03, 2024 Billing Provider: DORETHA GOOD MD Common Visit Codes: [id number] INP/OBS CARE(MOD) LEONARDO SAUCEDO, RES November 03, 2024 18:34 DORETHA GOOD MD November 03, 2024 21:07
[2024-11-03 19:00] VITALS: RESP 14; O2SAT 98
[2024-11-03 20:00] VITALS: BP 154/74; PULSE 70; RESP 17; TEMP 98.2; O2SAT 97
[2024-11-03] MEDS: HYDROcodone/acetaminophen 10/325mg tab PO PRN (22:04)
[2024-11-04 07:00] VITALS: RESP 16; O2SAT 93
[2024-11-04 07:23] VITALS: BP 110/41; PULSE 71; RESP 16; TEMP 98.4; O2SAT 93
[2024-11-04] MEDS: CITALOpram 10mg tablet PO SCH (08:00)
[2024-11-04 14:22] LABS: BASOPHILS % (AUTO) 0.3 % (0-1); EOSINOPHILS % (AUTO) 0.2 % (0-6); HEMATOCRIT 42.4 % (35.0-45.0); HEMOGLOBIN 14.3 g/dl (12.0-16.0); LYMPHOCYTES # (AUTO) 1.8 X10'3 (1.1-4.8); LYMPHOCYTES % (AUTO) 22.5 % (21-51); MEAN CORPUSCULAR HEMOGLOBIN 30.1 PG (27.0-31.0); MEAN CORPUSCULAR HGB CONC 33.8 g/dL (33.0-36.5); MEAN CORPUSCULAR VOLUME 89.1 FL (78-98); MEAN PLATELET VOLUME 8.5 FL (7.4-10.4); MONOCYTES # (AUTO) 0.6 X10'3 (0-0.9); MONOCYTES % (AUTO) 6.9 % (2-12); NEUTROPHILS # (AUTO) 5.7 X10'3 (1.8-7.7); NEUTROPHILS % (AUTO) 70.1 % (42-75); PLATELET COUNT 221 X10'3 (140-440); RED BLOOD COUNT 4.75 X10'6 (4.20-5.60); RED CELL DISTRIBUTION WIDTH 13.3 % (11.5-14.5); WHITE BLOOD COUNT 8.2 X10'3 (4.5-11.0)
[2024-11-04 14:39] LABS: ALANINE AMINOTRANSFERASE 30 U/L (12-78); ALBUMIN 3.7 G/DL (3.4-5.0); ALBUMIN/GLOBULIN RATIO 1.2 (1.1-1.5); ALKALINE PHOSPHATASE 59 IU/L (46-116); ANION GAP 5 (8-16); ASPARTATE AMINO TRANSFERASE 16 U/L (10-37); BILIRUBIN,TOTAL 0.2 MG/DL (0.1-1.0); BLOOD UREA NITROGEN 13 MG/DL (7-18); CALCIUM 8.7 MG/DL (8.5-10.1); CHLORIDE 107 MMOL/L (99-107); CREATININE 0.93 MG/DL (0.40-0.90); GLUCOSE 110 MG/DL (70-104); LIPASE 26 U/L (16-77); POTASSIUM 4.7 MMOL/L (3.5-5.1); SODIUM 141 MMOL/L (135-145); TOTAL PROTEIN 6.8 G/DL (6.4-8.2); eCRCL 77 ML/MIN; eGFR 66 ML/MIN
--- NOTE | 2024-11-04 15:05 | PROGRESS NOTE ---
Progress Note Dictate Providers to CC ~ Central Line/PICC still needed: N\\A Antibiotic Ordered?: No MRSA Education MRSA Education Provided to pt: No Objective Vitals Vital Signs Date Time Temp Pulse Resp B/P (MAP) Pulse Ox O2 Delivery O2 Flow Rate FiO2 11/04/24 07:23 98.4 71 16 110/41 (64) 93 Room Air Lab Results: 11/04/24 1414 11/04/24 1414 Psychiatrist's Progress Note Date of Service: November 04, 2024 Notes CHART REVIEW Myriam Tristan is a 44-year-old female well known to this ED presents for psychiatric disturbances and suicide ideation. According to [facility] she made an attempt yesterday via a belt and hanging about on a fence with the attempt to choke herself. However she was unable to put any tension on on the belt in and did not injure herself. Initially thought that they had a safety plan for her developed however she has had ongoing issues. According to mental health officials, the patient's living situation has become toxic with a toxic landlord which has led to triggering events ultimately attempt on her life or attempting self-harm. ASSESSMENT The patient was interviewed in designated room. The patient was actively resting in bed with eyes open. The patient endorses "I am sick today." The patient endorses depression and SI but was able to elaborate due to her constant dry heaving. Denies HI. Denies AVH. The patient endorses adequate sleep and food intake. The patient is stable no acute distress noted. The patient is depressed, suicidal, and engaged during session. Per staff report no abnormal behaviors noted. Per staff report patient has been in bed most of day today and refused AM medications. Medical team notified labs and PRNs were ordered. Will continue daily assessment and adjusting treatment as needed. Results Of any Diagn. Testing REVIEW OF LABS White Blood Count 10.9 Red Blood Count 5.07 Hemoglobin 15.8 Hematocrit 44.6 Platelet Count 247 CMP Sodium Level 141 Potassium Level 4.1 Creatinine 0.84 Estimated GFR 74 Glucose Level 98 Calcium Level 9.6 Albumin 4.3 TSH 1.15 ETOH < 10 UTOX NEG UA NEG COVID NEG HCG NEG Appearnace: Other Speech: Impoverished Eye Contact: Avoidant Motor Activity: Normal Affect: Constricted Mood: Depressed Memory Impairment: None Attention: Normal Hallucinations: None Other: None Suicidality: Ideation Homicidality: None Delusions: None Behavior: Cooperative Insight: Poor Judgment: Poor Treatment SEROQUEL XR 900 MG P.O. Q.H.S. TRAZODONE 50 MG P.O. PRN Q.H.S.-INSOMNIA HYDROXYZINE 50 MG P.O. Q.H.S. PRNANXIETY/AGITATION Increase PROZAC 60MG PO DAILY LAMOTRIGINE 400 MG P.O. Q.H.S. Monitoring by Staff, Milieu, Group, and Individual counseling as needed -- According to the [place] Suicide Assessment the above named patient is on Q15 MINUTE CHECKS. 5250-- DTS-- The patient does not have a good safety plan for discharge at this time. We are still titrating medications to an effective dose while maintaining a therapeutic environment to prevent decompensation and readmission. REVIEW OF Clinical notes [X ] RN notes [X] PCT documentation [X] SW notes Labs [ X] Medications [X] Care trends/care activity [X] Vitals [X] DISCUSSION WITH net developer software engineer c [X] Staff SW [X] Treatment Team [X] Discharge UNSURE AT THIS TIME. PATIENT WILL DISCHARGE BACK TO [facility] ONCE STABLE CODING VISIT-PSYCHIATRY Date of Service: November 04, 2024 Billing Provider: CATHY ROSADO APRN Psych Common Visit Codes: [id number] INP/OBS CARE(Mod) CATHY ROSADO APRN November 04, 2024 15:05
[2024-11-04 16:04] LABS: TOTAL CELLS COUNTED 100
[2024-11-04] MEDS: diphenhydrAMINE 25 MG/10 ML UD oral solution PO SCH (16:04)
[2024-11-04 19:00] VITALS: RESP 18; O2SAT 96
[2024-11-04 20:00] VITALS: BP 138/78; PULSE 71; RESP 18; TEMP 97.5; O2SAT 96
[2024-11-04] MEDS: LAMOTRIGINE 200 MG PO SCH (21:00)
[2024-11-05 07:00] VITALS: RESP 20; O2SAT 92
[2024-11-05 08:00] VITALS: BP 135/71; PULSE 68; RESP 20; TEMP 98.2; O2SAT 92
--- NOTE | 2024-11-05 10:57 | PROGRESS NOTE ---
Progress Note Dictate Providers to CC ~ Central Line/PICC still needed: N\\A Antibiotic Ordered?: No MRSA Education MRSA Education Provided to pt: No Objective Vitals Vital Signs Date Time Temp Pulse Resp B/P (MAP) Pulse Ox O2 Delivery O2 Flow Rate FiO2 11/05/24 08:00 98.2 68 20 135/71 (92) 92 Room Air Lab Results: 11/04/24 1414 11/04/24 1414 Psychiatrist's Progress Note Date of Service: November 05, 2024 Notes CHART REVIEW Myriam Tristan is a 44-year-old female well known to this ED presents for psychiatric disturbances and suicide ideation. According to [facility] she made an attempt yesterday via a belt and hanging about on a fence with the attempt to choke herself. However she was unable to put any tension on on the belt in and did not injure herself. Initially thought that they had a safety plan for her developed however she has had ongoing issues. According to mental health officials, the patient's living situation has become toxic with a toxic landlord which has led to triggering events ultimately attempt on her life or attempting self-harm. ASSESSMENT The patient was interviewed in designated room. The patient was actively resting in bed with eyes open. The patient endorses "I am a little bitter today." I got up for a bit to talk on the phone then I cam back and laid down. ." Denies SI. How do I have the right to decide when I am done with life." Brice HI. Denies AVH. The patient endorses adequate sleep and food intake. The patient is stable no acute distress noted. The patient is less depressed and engaged during session. Per staff report no abnormal behaviors noted. Per staff report patient was medication compliant. Patient has shown improvement since admission. Will continue daily assessment and adjusting treatment as needed. Results Of any Diagn. Testing REVIEW OF LABS White Blood Count 10.9 Red Blood Count 5.07 Hemoglobin 15.8 Hematocrit 44.6 Platelet Count 247 CMP Sodium Level 141 Potassium Level 4.1 Creatinine 0.84 Estimated GFR 74 Glucose Level 98 Calcium Level 9.6 Albumin 4.3 TSH 1.15 ETOH < 10 UTOX NEG UA NEG COVID NEG HCG NEG Appearnace: Other Speech: Other (CIRCUMSTANTIAL) Eye Contact: Normal Motor Activity: Normal Affect: Full Orientation Impairment: None Memory Impairment: None Attention: Normal Hallucinations: None Other: None Suicidality: None Homicidality: None Delusions: None Behavior: Cooperative Insight: Poor Judgment: Poor Treatment SEROQUEL XR 900 MG P.O. Q.H.S. TRAZODONE 50 MG P.O. PRN Q.H.S.-INSOMNIA HYDROXYZINE 50 MG P.O. Q.H.S. PRNANXIETY/AGITATION Increase PROZAC 60MG PO DAILY LAMOTRIGINE 400 MG P.O. Q.H.S. Monitoring by Staff, Milieu, Group, and Individual counseling as needed -- According to the [place] Suicide Assessment the above named patient is on Q15 MINUTE CHECKS. 5250-- DTS-- The patient does not have a good safety plan for discharge at this time. We are still titrating medications to an effective dose while maintaining a therapeutic environment to prevent decompensation and readmission. REVIEW OF Clinical notes [X ] RN notes [X] PCT documentation [X] SW notes Labs [ X] Medications [X] Care trends/care activity [X] Vitals [X] DISCUSSION WITH agricultural extension specialist [X] Staff SW [X] Treatment Team [X] Discharge UNSURE AT THIS TIME. PATIENT WILL DISCHARGE BACK TO [facility] ONCE STABLE CODING VISIT-PSYCHIATRY Date of Service: November 05, 2024 Billing Provider: CATHY ROSADO APRN Psych Common Visit Codes: [id number] INP/OBS CARE(Mod) CATHY ROSADO APRN November 05, 2024 10:57
--- NOTE | 2024-11-05 18:51 | PROGRESS NOTE- Residence ---
Progress Note - Resident Providers to CC Resident Creating Document: HUEY BRADFORD, TU ~ Antibiotic Timeout Antibiotic Ordered?: No Subjective Patient was seen and examined at [facility]. No new systemic complaints. Objective Vital Signs Date Time Temp Pulse Resp B/P (MAP) Pulse Ox O2 Delivery O2 Flow Rate FiO2 11/05/24 08:00 98.2 68 20 135/71 (92) 92 Room Air Result Diagram: 11/04/24 1414 11/04/24 1414 General: Awake and Alert, no acute distress. Morbidly obese Resp: Unlabored. Lungs clear to auscultation bilaterally. Heart: Regular Rate and rhythm, normal S1 and S2 without murmur, rub or gallop. Abdomen: Soft and non tender no organomegaly Extremities: No cyanosis,clubbing or edema. Skin: Warm and Dry. Scar on her left upper extremity, seems like a quality assurance monitor Advance Care Planning Advanced Care plannin - 30 Minutes Assessment Assessment 44 years old female with history of schizophrenia, PTSD depression admitted in mental health unit for psychiatric disturbance and suicide ideation and attempt. According to [facility] she made an attempt yesterday we are at belt and hanging about on a fence with the attempt to choke herself. Patient reported he had history of CVA, TIA, seizure, endometriosis and pacemaker placement due to arrhythmia, degenerative joint disease and Tre Danlos as her reports. 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 # History of SVT ablation many years ago # Arrhythmia # Permanent pacemaker Not taking any medication, lipid panel: Elevated triglycerides Has no hand cultivator outpatient Lifestyle modification and weight management Follow up with PCP, an adviced to add statin #History of seizure Continue home medication lamotrigine Huey Bradford PGY1, Internal medicine resident Date of Service: November 05, 2024 Billing Provider: DORETHA GOOD MD Common Visit Codes: [id number] INP/OBS CARE(MOD) HUEY BRADFORD, TU November 05, 2024 18:51 DORETHA GOOD MD November 05, 2024 21:25
[2024-11-05 19:00] VITALS: RESP 18; O2SAT 94
[2024-11-05 19:55] VITALS: BP_SYST 151; BP_SYST 93; BP_DIAS 60; BP_DIAS 70; PULSE 71; PULSE 97; RESP 16; RESP 18; TEMP 97.4; TEMP 97.5; O2SAT 94; O2SAT 96
[2024-11-05 20:30] VITALS: PULSE 65
[2024-11-06 07:30] VITALS: BP 150/81; PULSE 81; RESP 16; TEMP 97.5; O2SAT 95
--- NOTE | 2024-11-06 16:27 | PROGRESS NOTE ---
Progress Note Dictate Providers to CC ~ Central Line/PICC still needed: N\\A Antibiotic Ordered?: No MRSA Education MRSA Education Provided to pt: No Objective Vitals Vital Signs Date Time Temp Pulse Resp B/P (MAP) Pulse Ox O2 Delivery O2 Flow Rate FiO2 11/06/24 15:50 16 11/06/24 07:30 95 Room Air 11/06/24 07:30 97.5 81 150/81 (104) Lab Results: 11/04/24 1414 11/04/24 1414 Psychiatrist's Progress Note Date of Service: November 06, 2024 Notes CHART REVIEW Myriam Tristan is a 44-year-old female well known to this ED presents for psychiatric disturbances and suicide ideation. According to [facility] she made an attempt yesterday via a belt and hanging about on a fence with the attempt to choke herself. However she was unable to put any tension on on the belt in and did not injure herself. Initially thought that they had a safety plan for her developed however she has had ongoing issues. According to mental health officials, the patient's living situation has become toxic with a toxic landlord which has led to triggering events ultimately attempt on her life or attempting self-harm. ASSESSMENT The patient was interviewed in designated room. The patient was actively in wheelchair in hallway. The patient endorses "I need to be discharged." The patient endorses "my landlord went into my apartment and now my dog is being taken away." "I need to get there to see what else she did." "I wasn't aware she was coming, I mean she left a 24hr notice on the door but I wasn't there to get the notice." "Why did she go in my apartment." Denies SI. Brice HI. Denies AVH. The patient endorses adequate sleep and food intake. The patient is stable no acute distress noted. The patient is cooperative, a bit anxious and engaged during session. Per staff report no abnormal behaviors noted. Per staff report patient was medication compliant. Patient has shown improvement since admission. Will continue daily assessment and adjusting treatment as needed. Results Of any Diagn. Testing REVIEW OF LABS White Blood Count 10.9 Red Blood Count 5.07 Hemoglobin 15.8 Hematocrit 44.6 Platelet Count 247 CMP Sodium Level 141 Potassium Level 4.1 Creatinine 0.84 Estimated GFR 74 Glucose Level 98 Calcium Level 9.6 Albumin 4.3 TSH 1.15 ETOH < 10 UTOX NEG UA NEG COVID NEG HCG NEG Affect: Labile Mood: Irritable Orientation Impairment: None Memory Impairment: None Attention: Normal Hallucinations: None Other: None Suicidality: None Homicidality: None Delusions: None Behavior: Agitated Insight: Fair, Poor Judgment: Poor Treatment SEROQUEL XR 900 MG P.O. Q.H.S. TRAZODONE 50 MG P.O. PRN Q.H.S.-INSOMNIA HYDROXYZINE 50 MG P.O. Q.H.S. PRNANXIETY/AGITATION Increase PROZAC 60MG PO DAILY LAMOTRIGINE 400 MG P.O. Q.H.S. Monitoring by Staff, Milieu, Group, and Individual counseling as needed -- According to the [place] Suicide Assessment the above named patient is on Q15 MINUTE CHECKS. 5250-- DTS-- The patient does not have a good safety plan for discharge at this time. We are still titrating medications to an effective dose while maintaining a therapeutic environment to prevent decompensation and readmission. REVIEW OF Clinical notes [X ] RN notes [X] PCT documentation [X] SW notes Labs [ X] Medications [X] Care trends/care activity [X] Vitals [X] DISCUSSION WITH protection chief industrial plant [X] Staff SW [X] Treatment Team [X] Discharge UNSURE AT THIS TIME. PATIENT WILL DISCHARGE BACK TO [facility] ONCE STABLE CODING VISIT-PSYCHIATRY Date of Service: November 06, 2024 Billing Provider: CATHY ROSADO APRN Psych Common Visit Codes: [id number] INP/OBS CARE(Mod) CATHY ROSADO APRN November 06, 2024 16:27
[2024-11-06] MEDS: LORazepam 1 MG tablet PO ONE (16:34)
[2024-11-06 18:29] VITALS: RESP 18; O2SAT 96
[2024-11-06 19:34] VITALS: BP 148/72; PULSE 71; RESP 18; TEMP 97.6; O2SAT 96
[2024-11-07 07:30] VITALS: BP 115/64; PULSE 71; RESP 16; TEMP 97.1; O2SAT 95
--- NOTE | 2024-11-07 08:56 | PROGRESS NOTE ---
Progress Note Dictate Providers to CC ~ Central Line/PICC still needed: N\\A Antibiotic Ordered?: No MRSA Education MRSA Education Provided to pt: No Objective Vitals Vital Signs Date Time Temp Pulse Resp B/P (MAP) Pulse Ox O2 Delivery O2 Flow Rate FiO2 11/07/24 07:47 16 11/06/24 19:34 97.6 71 148/72 (97) 96 Room Air Lab Results: 11/04/24 1414 11/04/24 1414 Psychiatrist's Progress Note Date of Service: November 07, 2024 Notes CHART REVIEW Myriam Tristan is a 44-year-old female well known to this ED presents for psychiatric disturbances and suicide ideation. According to [facility] she made an attempt yesterday via a belt and hanging about on a fence with the attempt to choke herself. However she was unable to put any tension on on the belt in and did not injure herself. Initially thought that they had a safety plan for her developed however she has had ongoing issues. According to mental health officials, the patient's living situation has become toxic with a toxic landlord which has led to triggering events ultimately attempt on her life or attempting self-harm. ASSESSMENT The patient was interviewed in observation room. The patient was actively sitting edge of bed. The patient endorses "after I calm down yesterday realize that if I do go home I probably will kill myself." The patient endorses no plan. "I just don't know what else to do." "I would probably be better off ." The patient reports "I am so worked up right now I just want to throw my wheelchair." Brice HI. Denies AVH. The patient endorses adequate sleep and food intake. The patient is stable no acute distress noted. The patient is agitated, a bit anxious and engaged during session. Per staff report patient reported being anxious. PRN was given. Per staff report patient was medication compliant. Will continue daily assessment and adjusting treatment as needed. Results Of any Diagn. Testing REVIEW OF LABS White Blood Count 10.9 Red Blood Count 5.07 Hemoglobin 15.8 Hematocrit 44.6 Platelet Count 247 CMP Sodium Level 141 Potassium Level 4.1 Creatinine 0.84 Estimated GFR 74 Glucose Level 98 Calcium Level 9.6 Albumin 4.3 TSH 1.15 ETOH < 10 UTOX NEG UA NEG COVID NEG HCG NEG Appearnace: Other Speech: Other (CIRCUMSTANTIAL) Eye Contact: Normal Motor Activity: Normal Affect: Labile Mood: Anxious Orientation Impairment: None Memory Impairment: None Attention: Normal Hallucinations: None Other: None Suicidality: Ideation Homicidality: None Delusions: None Behavior: Agitated Insight: Poor Judgment: Poor Treatment SEROQUEL XR 900 MG P.O. Q.H.S. TRAZODONE 50 MG P.O. PRN Q.H.S.-INSOMNIA HYDROXYZINE 50 MG P.O. Q.H.S. PRNANXIETY/AGITATION Increase CELEXA 20MG PO DAILY LAMOTRIGINE 400 MG P.O. Q.H.S. Monitoring by Staff, Milieu, Group, and Individual counseling as needed -- According to the [place] Suicide Assessment the above named patient is on Q15 MINUTE CHECKS. 5250-- DTS-- The patient does not have a good safety plan for discharge at this time. We are still titrating medications to an effective dose while maintaining a therapeutic environment to prevent decompensation and readmission. REVIEW OF Clinical notes [X ] RN notes [X] PCT documentation [X] SW notes Labs [ X] Medications [X] Care trends/care activity [X] Vitals [X] DISCUSSION WITH polymerization engineer [X] Staff SW [X] Treatment Team [X] Discharge UNSURE AT THIS TIME. PATIENT WILL DISCHARGE BACK TO NURSING HOME ONCE STABLE CODING VISIT-PSYCHIATRY Date of Service: November 07, 2024 Billing Provider: CATHY ROSADO APRN Psych Common Visit Codes: [id number] INP/OBS CARE(Mod) CATHY ROSADO APRN November 07, 2024 08:55
--- NOTE | 2024-11-07 11:17 | PROGRESS NOTE ---
Daily Progress Note Providers to CC ~ no new complaint today resting comfortably in the bed Central Line/PICC still needed: No Landin-Non Protocol Landin Indications Met/Not Met: F/C Indications Not Met Antibiotic Timeout Antibiotic Ordered?: No MRSA Education MRSA Education Provided to pt: No Subjective As above Objective Vital Signs Date Time Temp Pulse Resp B/P (MAP) Pulse Ox O2 Delivery O2 Flow Rate FiO2 11/07/24 08:47 16 11/06/24 19:34 97.6 71 148/72 (97) 96 Room Air Vital signs, stable ,afebrile. Pulse Oximetry reflects adequate oxygenation. General: well developed, well nourished. Awake , alert, and oriented x4, resting comfortably in the bed, in no acute distress . Skin: Warm, dry, no pallor, no rash or petechiae. HEENT: Atraumatic, normocephalic, EOMI, anicteric sclera B; pink conjunctiva; PERRLA, normal oropharynx, moist oral and nasal mucosa. Tympanic membrane , nose , throat clear. Neck: Trachea midline. Supple, full range of motion, no JVD, bruit , hepatojugular reflex , lymphadenopathy or masses, or other lesions Cardiac: Regular rhythm, regular rate no murmurs, rubs, or gallops. Normal S1 and S2, no S3 noticed. PMI is normal. Respiratory: Equal breath sounds bilaterally, no tachypnea; lungs clear to auscultation bilaterally, no wheezing ,rub or rales, or crackles. Chest wall is symmetric and without deformity. No signs of trauma. Chest wall is nontender. No signs of respiratory distress. Resonance is normal upon percussion bilaterally. Gastrointestinal: Abdomen symmetric, non-distended, soft, non-tender, normal bowel sounds x4 quadrant, normoactive, no hepatosplenomegaly , no masses , no bruit, no flank pain bilaterally. No voluntary guarding, rebound, or rigidity. No tenderness to percussion. No pulsatile masses. Equal femoral pulses. No Plasencia's sign or McBurney point tenderness. Back; no CVA tenderness bilaterally, no deformities. Neck and back are without deformity as well. No tenderness noted on palpation of the spinous processes. Spinous processes are midline. Cervical, thoracic, and lumbar paraspinal muscles are not tender and are without spasm. Musculoskeletal: Extremities, normal range of motion, non-tender, muscle strength 5/5 x 4. Negative Homans signs bilaterally on lower extremity. Distal pulses full symmetrical, no clubbing, cyanosis , edema. Neurological: Speech is clear, alert, and oriented x 4. No motor or sensory deficit, deep tendon reflexes normal, cerebellar intact. Cranial nerves II-XII intact. Psych: Alert and or appropriate, normal affect. Vascular: Good distal pulses, which are equal x4; capillary refill less than 2 seconds. Lymphatic, no lymphadenopathy. 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
[2024-11-07] MEDS: LORazepam 1 MG tablet PO ONE (13:13)
[2024-11-07 18:50] VITALS: RESP 18; O2SAT 98
[2024-11-07 20:37] VITALS: BP 119/77; PULSE 74; RESP 18; TEMP 98.2; O2SAT 96
[2024-11-08 07:00] VITALS: RESP 16; O2SAT 97
[2024-11-08 08:00] VITALS: BP 133/78; PULSE 71; RESP 16; TEMP 97.1; O2SAT 97
[2024-11-08] MEDS: CITALOpram 10mg tablet PO SCH (10:04)
--- NOTE | 2024-11-08 13:32 | PROGRESS NOTE ---
Progress Note Dictate Providers to CC ~ Central Line/PICC still needed: N\A Antibiotic Ordered?: No Objective Vitals Vital Signs Date Time Temp Pulse Resp B/P (MAP) Pulse Ox O2 Delivery O2 Flow Rate FiO2 11/08/24 11:07 15 11/07/24 20:37 98.2 74 119/77 (91) 96 Room Air Lab Results: 11/04/24 1414 11/04/24 1414 Problem\Assessment\Plan Problems/Diagnosis: (1) Schizoaffective disorder, depressive type (2) Seizure disorder (3) Post traumatic stress disorder (PTSD) Psychiatrist's Progress Note Date of Service: November 08, 2024 Notes Myriam Tristan is a 44-year-old female well known to this ED presents for psychiatric disturbances and suicide ideation. According to [facility] she made an attempt yesterday via a belt and hanging about on a fence with the attempt to choke herself. However she was unable to put any tension on on the belt in and did not injure herself. Initially thought that they had a safety plan for her developed however she has had ongoing issues. According to mental health officials, the patient's living situation has become toxic with a toxic landlord which has led to triggering events ultimately attempt on her life or attempting self-harm. Patient is a morbidly obese female of average height. She has long blonde brown graying disheveled hair. wearing street clothes. using w/c. Doing alright today. Having depression. Doesn't feel like it's working with provider. 'just say what she wants me to say.' 'it's not...' 'I'm afraid of what could happen if went home today.' 'afraid if I go home I would (kill herself).' Thinks knows now where her sister was at when she . 'flipped out yesterday because I wanted to go home.' 'I was freaking out.' Dog at the home. Her business operations manager is 'amping up so bad now.' Started taking a medication. Says severe violent reaction to the atarax. Says it was bad recently. Denies AH/VH. No Paranoia. Sleep has been good because taking ambien. Zofran not working to throw up. Benadryl stopped her from throwing up. Zoloft she says broke her out in patches. Forgets what happened with the Prozac. No allergies to the Celexa. Appetite is fine now. Last BM yesterday. Taken Miralax a couple times, but does that at home too. Mind just will go completely blank sometimes. 'Almost like I let somebody else take it and in back up and listening... then you're back.' Mental Status MENTAL STATUS Patient's appearance is depressed, disheveled Behavior is described as anxious Psychomotor behaviors are unremarkable. Speech is more regular Patient's affect: Constricted Mood: 'I'm not okay' Sensorium is clear consciousness. Patient's intellect is average. Attitude is cooperative. Attention is maintained. Reasoning is fair. Impulse control is poor. Judgment is poor. Insight is poor. Thought processes are circumstantial. Not disorganized. Thought content : No significant preoccupation, Denies auditory visual or tactile hallucinations, Possibly paranoid ideations The patient does not express suicidal ideation. But having passive suicidal ideations and fear of going home. The patient does not express homicidal ideation. Results Of any Diagn. Testing LABS 10/24/24 CBC White Blood Count 10.9 Red Blood Count 5.07 Hemoglobin 15.8 Hematocrit 44.6 Platelet Count 247 CMP Sodium Level 141 Potassium Level 4.1 Creatinine 0.84 Estimated GFR 74 Glucose Level 98 Calcium Level 9.6 Albumin 4.3 TSH 1.15 ETOH < 10 UTOX NEG UA NEG COVID NEG HCG NEG Treatment She is having passive suicidal ideations and fear of going home. Celexa just increased Celexa 20mg one a day. Seroquel XR 800mg total hs Atarax for anxiety Trazodone PRN for insomnia Likely [place] II. MEDICAL: Seizure Disorder-- concomitant treatment for psych Lamictal XR 250mg daily Depakote Er 1000mg daily Monitoring by Staff, Milieu, Group, and Individual counseling as needed -- According to the [place] Suicide Assessment the above named patient is on Q 15 MINUTE CHECKS. 5250-- DTS-- The patient does not have a good safety plan for discharge at this time. We are still titrating medications to an effective dose while maintaining a therapeutic environment to prevent decompensation and readmission. DISCHARGE: HOME ONCE STABLE. REVIEW OF Clinical notes [X ] RN notes [X] PCT documentation [X] SW notes [X] Labs [ X] Medications [X] Care trends/care activity [X] Vitals [X] DISCUSSION WITH paper wrapping machine operator [X] CODING VISIT-PSYCHIATRY Date of Service: November 08, 2024 Billing Provider: EILEEN KRAMER Psych Common Visit Codes: [id number] INP/OBS CARE(High) EILEEN KRAMER November 08, 2024 13:32
[2024-11-08 19:00] VITALS: RESP 16; O2SAT 95
[2024-11-08 20:00] VITALS: BP 156/94; PULSE 70; RESP 16; TEMP 97; O2SAT 95
[2024-11-09 07:00] VITALS: RESP 18; O2SAT 97
[2024-11-09 07:27] VITALS: BP 93/52; PULSE 69; RESP 16; TEMP 97.8; O2SAT 93
--- NOTE | 2024-11-09 15:47 | PROGRESS NOTE ---
Progress Note Dictate Providers to CC ~ Central Line/PICC still needed: N\A Antibiotic Ordered?: No Objective Vitals Vital Signs Date Time Temp Pulse Resp B/P (MAP) Pulse Ox O2 Delivery O2 Flow Rate FiO2 11/09/24 07:27 97.8 69 16 93/52 (66) 93 Room Air Problem\Assessment\Plan Problems/Diagnosis: (1) Schizoaffective disorder, depressive type (2) Seizure disorder (3) Post traumatic stress disorder (PTSD) Psychiatrist's Progress Note Date of Service: November 09, 2024 Notes Myriam Tristan is a 44-year-old female well known to this ED presents for psychiatric disturbances and suicide ideation. According to [facility] she made an attempt yesterday via a belt and hanging about on a fence with the attempt to choke herself. However she was unable to put any tension on on the belt in and did not injure herself. Initially thought that they had a safety plan for her developed however she has had ongoing issues. According to mental health officials, the patient's living situation has become toxic with a toxic landlord which has led to triggering events ultimately attempt on her life or attempting self-harm. Patient is a morbidly obese female of average height. She has long blonde brown graying disheveled hair. wearing street clothes. using w/c. 'I just don't know what to do with my life.' 'it's been one situation... constant... and finally having own home and felt safe... and now it's her, the breeding manager...The crap she is doing... bullying, stalking she has cameras that go straight to her cell phone. She goes right up to the edge with the law.' 'I'm done with it.' 'I definitely won't hurt her... was really at peace when I actually tried...(to kill myself).' 'This is it, I'm just at peace and this is where I'm supposed to be doing...' 'If I go home will I.. I don't know.' Not sure she can keep herself safe. Still pretty depressed. Hoping medication works. 'My brain is broken.' Feels like she will check out... 'someone else takes autopilot and then I come back...' Denies AH. 'I'm just not me, I've got to find myself.' Her friend started talking the other night and 'mentally leaving.' Still feeling suicidal. 'I feel like I might be okay for a few days...' 'Until I snap again.' 'If I do it this next time, they won't find the body.' 'I won't tell them where I am.' Gets anxious off and on. One day threw the w/c. The other day freaked out because wanted to leave... she was overwhelmed. She is still pretty disorganized and circumstantial. 'I don't know if I'll ever be me again to be honest,' Drawing pictures. Mind is racing and thinking too much. If starts thinking about things starts getting anxious. Wants to see her dog. 'If you go home then you just won't be here.' Feeling her breeding manager keeps 'triggering me.' She will get verbal and angry. 'she made me lose it.' Struggle with sleep at night. Mind just thinking and worrying. It builds and then 'I snap.' Mental Status MENTAL STATUS Patient's appearance is appropriate. Behavior is described as agitated and anxious Psychomotor behaviors are restless. Speech is more regular Patient's affect: Constricted Mood: 'I'm not doing okay, I don't know what will happen if I go home' Sensorium is clear consciousness. Patient's intellect is average. Attitude is cooperative. Attention is maintained. Reasoning is fair. Impulse control is poor. Judgment is poor. Insight is poor. Thought processes are circumstantial. Not disorganized. Thought content : No significant preoccupation, Denies auditory visual or tactile hallucinations, Possibly paranoid ideations The patient does not express suicidal ideation. Having suicidal ideations and fear of going home. The patient does not express homicidal ideation. Results Of any Diagn. Testing LABS 10/24/24 CBC White Blood Count 10.9 Red Blood Count 5.07 Hemoglobin 15.8 Hematocrit 44.6 Platelet Count 247 CMP Sodium Level 141 Potassium Level 4.1 Creatinine 0.84 Estimated GFR 74 Glucose Level 98 Calcium Level 9.6 Albumin 4.3 TSH 1.15 ETOH < 10 UTOX NEG UA NEG COVID NEG HCG NEG Treatment Celexa just increased. She is still experiencing a lot of suicidal ideations. Some possible paranoia with breeding manager? Unsure, maybe just not getting a long with her. Try add a low dose Abilify to see if it evens her out a little bit. But if not, just d/c. We will need an EKG to monitor QTc Interval d/t celexa and seroquel. Get a depakote level. Some of this could be behavioral in nature. Celexa 20mg one a day. Seroquel XR 800mg total hs Atarax for anxiety Trazodone PRN for insomnia Likely [place] II. MEDICAL: Seizure Disorder-- concomitant treatment for psych Lamictal XR 250mg daily Depakote Er 1250mg daily Monitoring by Staff, Milieu, Group, and Individual counseling as needed -- According to the [place] Suicide Assessment the above named patient is on Q 15 MINUTE CHECKS. 5250-- DTS-- The patient does not have a good safety plan for discharge at this time. We are still titrating medications to an effective dose while maintaining a therapeutic environment to prevent decompensation and readmission. DISCHARGE: HOME ONCE STABLE. REVIEW OF Clinical notes [X ] RN notes [X] PCT documentation [X] SW notes [X] Labs [ X] Medications [X] Care trends/care activity [X] Vitals [X] DISCUSSION WITH correspondence specialist [X] CODING VISIT-PSYCHIATRY Date of Service: November 09, 2024 Billing Provider: EILEEN KRAMER Psych Common Visit Codes: [id number] INP/OBS CARE(High) EILEEN KRAMER November 09, 2024 15:47
[2024-11-09] MEDS: HYDROcodone/acetaminophen 10/325mg tab PO PRN (16:40)
[2024-11-09] MEDS: LORazepam 1 MG tablet PO ONE (16:41)
--- NOTE | 2024-11-09 17:49 | PROGRESS NOTE ---
Daily Progress Note Providers to CC ~ Antibiotic Timeout Antibiotic Ordered?: No Subjective This is the hospitalist progress note on patients hospitalized at [facility] the patient is requesting to decrease the interval between doses of Hobson from every 8 hours every 6 hours Objective Vital Signs Date Time Temp Pulse Resp B/P (MAP) Pulse Ox O2 Delivery O2 Flow Rate FiO2 11/09/24 07:27 97.8 69 16 93/52 (66) 93 Room Air Gen. 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 Pain management: Hobson 10/325 change interval from every 8 hours to every 6 hours prn Morbid obesity BMI 52, Nutrition consult # History of SVT ablation many years ago # Arrhythmia # Permanent pacemaker Not taking any medication, lipid panel: Elevated triglycerides 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
--- NOTE | 2024-11-09 17:57 | ELECTROCARDIOGRAPH REPORT ---
[facility] Test Date: 2024-11-09 Test Time: 17:53:49 Pat Name: JULIA DALEY Department: Room: [facility] Gender: F Historical Archeologist: MORRIS : 1980 Requested By: EILEEN KRAMER Order Number: [id number] Reading MD: Dr. Lam Mayorga Measurements Intervals Stendal Rate: 71 P: 15 NC: 116 QRS: 8 QRSD: 110 T: 62 QT: 392 QTc: 425 Interpretive Statements Electronic atrial pacemaker Electronically Signed On 11-10-2024 18:46:[address] Lam Mayorga Please click the below link to view image of tracing.
[2024-11-09 19:00] VITALS: RESP 16; O2SAT 94
[2024-11-09 20:00] VITALS: BP 126/70; PULSE 70; RESP 16; TEMP 98.7; O2SAT 94
[2024-11-09] MEDS: aripiprazole 5mg tablet PO SCH (20:25)
[2024-11-10 07:00] VITALS: RESP 16; O2SAT 92
[2024-11-10 08:00] VITALS: BP 127/61; PULSE 72; RESP 16; TEMP 97.9; O2SAT 92
--- NOTE | 2024-11-10 10:48 | PROGRESS NOTE ---
Progress Note Dictate Providers to CC ~ Central Line/PICC still needed: N\\A Antibiotic Ordered?: No MRSA Education MRSA Education Provided to pt: No Objective Vitals Vital Signs Date Time Temp Pulse Resp B/P (MAP) Pulse Ox O2 Delivery O2 Flow Rate FiO2 11/10/24 09:10 16 11/10/24 08:00 97.9 72 127/61 (83) 92 Room Air Psychiatrist's Progress Note Date of Service: November 10, 2024 Notes CHART REVIEW Myriam Tristan is a 44-year-old female well known to this ED presents for psychiatric disturbances and suicide ideation. According to [facility] she made an attempt yesterday via a belt and hanging about on a fence with the attempt to choke herself. However she was unable to put any tension on on the belt in and did not injure herself. Initially thought that they had a safety plan for her developed however she has had ongoing issues. According to mental health officials, the patient's living situation has become toxic with a toxic landlord which has led to triggering events ultimately attempt on her life or attempting self-harm. ASSESSMENT The patient was interviewed in observation room. The patient was actively wheel chair in room. Patient endorses "not safe." Just feel like I do not know what to do about going home." "I thought about doing something to kill myself here but nothing here to do anything with." "I [place] complete at that moment everything left me and I thought okay." "I thought about killing myself the way my sister did but I think my way we will be better." (with a smile on her face) Brice HI. Denies AVH. The patient endorses adequate sleep and food intake. The patient is stable no acute distress noted. The patient is cooperative, calm, and engaged during session. This could be behavioral. Per staff report patient participating in group/unit activities. Per staff report patient was medication compliant. Will continue daily assessment and adjusting treatment as needed. Results Of any Diagn. Testing REVIEW OF LABS White Blood Count 10.9 Red Blood Count 5.07 Hemoglobin 15.8 Hematocrit 44.6 Platelet Count 247 CMP Sodium Level 141 Potassium Level 4.1 Creatinine 0.84 Estimated GFR 74 Glucose Level 98 Calcium Level 9.6 Albumin 4.3 TSH 1.15 ETOH < 10 UTOX NEG UA NEG COVID NEG HCG NEG Appearnace: Disheveled (REPLETE OBESE FEMALE AVERAGE HEIGHT. LONG BLONDE GREEN HAIR. WEARING STREET CLOTHING.) Speech: Other (CIRCUMSTANTIAL) Eye Contact: Normal Motor Activity: Normal Affect: Full Orientation Impairment: None Memory Impairment: None Attention: Normal Hallucinations: None Other: None Suicidality: Ideation, Plan Homicidality: None Delusions: None Behavior: Cooperative Insight: Poor Judgment: Poor Treatment SEROQUEL XR 900 MG P.O. Q.H.S. TRAZODONE 50 MG P.O. PRN Q.H.S.-INSOMNIA HYDROXYZINE 50 MG P.O. Q.H.S. PRNANXIETY/AGITATION Increase CELEXA 20MG PO DAILY LAMOTRIGINE 400 MG P.O. Q.H.S. Monitoring by Staff, Milieu, Group, and Individual counseling as needed -- According to the [place] Suicide Assessment the above named patient is on Q15 MINUTE CHECKS. 5250-- DTS-- The patient does not have a good safety plan for discharge at this time. We are still titrating medications to an effective dose while maintaining a therapeutic environment to prevent decompensation and readmission. REVIEW OF Clinical notes [X ] RN notes [X] PCT documentation [X] SW notes Labs [ X] Medications [X] Care trends/care activity [X] Vitals [X] DISCUSSION WITH planting machine crewman [X] Staff SW [X] Treatment Team [X] Discharge UNSURE AT THIS TIME. PATIENT WILL DISCHARGE BACK TO [facility] ONCE STABLE CODING VISIT-PSYCHIATRY Date of Service: November 10, 2024 Billing Provider: CATHY ROSADO APRN Psych Common Visit Codes: [id number] INP/OBS CARE(Mod) CATHY ROSADO APRN November 10, 2024 10:48
[2024-11-10 19:00] VITALS: RESP 18; O2SAT 97
[2024-11-10 20:00] VITALS: BP 137/71; PULSE 71; RESP 18; TEMP 98.2; O2SAT 97
[2024-11-11 07:18] VITALS: BP 133/70; PULSE 65; RESP 20; TEMP 97.1; O2SAT 91
[2024-11-11 08:00] VITALS: RESP 20; O2SAT 92
--- NOTE | 2024-11-11 13:58 | PROGRESS NOTE ---
Progress Note Dictate Providers to CC ~ Central Line/PICC still needed: N\\A Antibiotic Ordered?: No MRSA Education MRSA Education Provided to pt: No Objective Vitals Vital Signs Date Time Temp Pulse Resp B/P (MAP) Pulse Ox O2 Delivery O2 Flow Rate FiO2 11/11/24 11:06 16 11/11/24 08:00 92 Room Air 11/11/24 07:18 97.1 65 133/70 (91) Psychiatrist's Progress Note Date of Service: November 11, 2024 Notes CHART REVIEW Myriam Tristan is a 44-year-old female well known to this ED presents for psychiatric disturbances and suicide ideation. According to [facility] she made an attempt yesterday via a belt and hanging about on a fence wit h the attempt to choke herself. However she was unable to put any tension on on the belt in and did not injure herself. Initially thought that they had a safety plan for her developed however she has had ongoing issues. According to mental health officials, the patient's living situation has become toxic with a toxic landlord which has led to triggering events ultimately attempt on her life or attempting self-harm. ASSESSMENT The patient was interviewed in observation room. The patient was actively in wheelchair in hallway. Patient endorses "I am good." "I feel like I have a plan going." The patient endorses she completed some applications for income housing. The patient endorses no worsening mental health symptoms. Brice HI. Denies AVH. The patient endorses adequate sleep and food intake. The patient is stable no acute distress noted. The patient is cooperative, calm, and engaged during session. The patient was laughing and joking during session. Per staff report patient participating in group/unit activities. Per staff report patient was medication compliant. Will continue daily assessment and adjusting treatment as needed. Results Of any Diagn. Testing REVIEW OF LABS White Blood Count 10.9 Red Blood Count 5.07 Hemoglobin 15.8 Hematocrit 44.6 Platelet Count 247 CMP Sodium Level 141 Potassium Level 4.1 Creatinine 0.84 Estimated GFR 74 Glucose Level 98 Calcium Level 9.6 Albumin 4.3 TSH 1.15 ETOH < 10 UTOX NEG UA NEG COVID NEG HCG NEG Appearnace: Other (APPROPRIATE. OBESE FEMALE AVERAGE HEIGHT. LONG BLONDE GREEN HAIR. WEARING STREET CLOTHING.) Speech: Other (CIRCUMSTANTIAL) Eye Contact: Normal Motor Activity: Normal Affect: Full Comments SANTYL Mood: Euthymic Orientation Impairment: None Memory Impairment: None Attention: Normal Hallucinations: None Other: None Suicidality: None Homicidality: None Delusions: None Behavior: Cooperative Insight: Fair Judgment: Fair, Poor Treatment SEROQUEL XR 900 MG P.O. Q.H.S. TRAZODONE 50 MG P.O. PRN Q.H.S.-INSOMNIA HYDROXYZINE 50 MG P.O. Q.H.S. PRNANXIETY/AGITATION CELEXA 20MG PO DAILY LAMOTRIGINE 400 MG P.O. Q.H.S. ABILIFY 5 MG Monitoring by Staff, Milieu, Group, and Individual counseling as needed -- According to the [place] Suicide Assessment the above named patient is on Q15 MINUTE CHECKS. VOLUNTARY REVIEW OF Clinical notes [X ] RN notes [X] PCT documentation [X] SW notes Labs [ X] Medications [X] Care trends/care activity [X] Vitals [X] DISCUSSION WITH salesperson sewing machines [X] Staff SW [X] Treatment Team [X] Discharge UNSURE AT THIS TIME. PATIENT WILL DISCHARGE BACK TO [facility] ONCE STABLE CODING VISIT-PSYCHIATRY Date of Service: November 11, 2024 Billing Provider: CATHY ROSADO APRN Psych Common Visit Codes: [id number] INP/OBS CARE(Low) CATHY ROSADO APRN November 11, 2024 13:58
--- NOTE | 2024-11-11 16:36 | PROGRESS NOTE ---
Daily Progress Note Providers to CC ~ Antibiotic Timeout Antibiotic Ordered?: No Subjective Patient was seen in mental health unit in presence of nursing staff. Patient was ambulating using the wheelchair. Patient was concerned about her pain medication at the time of discharge . She mentioned that psychiatric team told her that at the time of her discharge hospitalist team we will take care of her pain medication. No other concerns Objective Vital Signs Date Time Temp Pulse Resp B/P (MAP) Pulse Ox O2 Delivery O2 Flow Rate FiO2 11/11/24 16:22 16 11/11/24 08:00 92 Room Air 11/11/24 07:18 97.1 65 133/70 (91) General-patient not in any acute distress, alert awake , obese, age-appropriate, looks comfortable HEENT-atraumatic normocephalic, neck supple without elevated JVD, no thyromegaly or carotid bruit. No lymphadenopathy bilaterally. Eyes-no icterus or pallor seen in eyes Chest-clear to auscultation bilaterally, breathing nonlabored no tachypnea, no wheezing, no crepitation, no crackles. 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 Pain management: on [place] change every 6 hours prn Morbid obesity BMI 52, Nutrition consult # History of SVT ablation many years ago # Arrhythmia # Permanent pacemaker Not taking any medication, lipid panel: Elevated triglycerides 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
[2024-11-11 19:00] VITALS: RESP 18; O2SAT 94
[2024-11-11 20:00] VITALS: BP 134/70; PULSE 71; RESP 18; TEMP 98; O2SAT 94
[2024-11-12 07:00] VITALS: BP 128/72; PULSE 81; RESP 15; TEMP 98.3; O2SAT 92
[2024-11-12] MEDS: CITALOpram 10mg tablet PO SCH (07:09)
--- NOTE | 2024-11-12 11:13 | PROGRESS NOTE ---
Progress Note Dictate Providers to CC ~ Central Line/PICC still needed: N\\A Antibiotic Ordered?: No MRSA Education MRSA Education Provided to pt: No Objective Vitals Vital Signs Date Time Temp Pulse Resp B/P (MAP) Pulse Ox O2 Delivery O2 Flow Rate FiO2 11/12/24 08:09 16 11/12/24 07:00 98.3 81 128/72 (90) 92 Room Air Psychiatrist's Progress Note Date of Service: November 12, 2024 Notes CHART REVIEW Myriam Tristan is a 44-year-old female well known to this ED presents for psychiatric disturbances and suicide ideation. According to [facility] she made an attempt yesterday via a belt and hanging about on a fence with the attempt to choke herself. However she was unable to put any tension on on the belt in and did not injure herself. Initially thought that they had a safety plan for her developed however she has had ongoing issues. According to mental health officials, the patient's living situation has become toxic with a toxic landlord which has led to triggering events ultimately attempt on her life or attempting self-harm. ASSESSMENT The patient was interviewed in observation room. The patient was actively in bed resting with eyes open. Patient endorses "I'm doing okay." The patient endorses "I just have some hip pain today." The patient endorses no worsening mental health symptoms. Brice HI. Denies AVH. The patient endorses adequate sleep and food intake. The patient is stable no acute distress noted. The patient is cooperative, calm, and engaged during session. Per staff report patient participating in group/unit activities. Per staff report patient was medication compliant. Will continue daily assessment and adjusting treatment as needed. Results Of any Diagn. Testing REVIEW OF LABS White Blood Count 10.9 Red Blood Count 5.07 Hemoglobin 15.8 Hematocrit 44.6 Platelet Count 247 CMP Sodium Level 141 Potassium Level 4.1 Creatinine 0.84 Estimated GFR 74 Glucose Level 98 Calcium Level 9.6 Albumin 4.3 TSH 1.15 ETOH < 10 UTOX NEG UA NEG COVID NEG HCG NEG Appearnace: Other (APPROPRIATE. OBESE FEMALE AVERAGE HEIGHT. LONG BLONDE GREEN HAIR. WEARING STREET CLOTHING.) Speech: Other (CIRCUMSTANTIAL) Eye Contact: Normal Motor Activity: Normal Affect: Full Orientation Impairment: None Memory Impairment: None Attention: Normal Hallucinations: None Other: None Suicidality: None Homicidality: None Delusions: None Behavior: Cooperative Insight: Fair Judgment: Fair, Poor Treatment SEROQUEL XR 900 MG P.O. Q.H.S. TRAZODONE 50 MG P.O. PRN Q.H.S.-INSOMNIA HYDROXYZINE 50 MG P.O. Q.H.S. PRNANXIETY/AGITATION CELEXA 20MG PO DAILY LAMOTRIGINE 400 MG P.O. Q.H.S. ABILIFY 5 MG Monitoring by Staff, Milieu, Group, and Individual counseling as needed -- According to the [place] Suicide Assessment the above named patient is on Q15 MINUTE CHECKS. VOLUNTARY REVIEW OF Clinical notes [X ] RN notes [X] PCT documentation [X] SW notes Labs [ X] Medications [X] Care trends/care activity [X] Vitals [X] DISCUSSION WITH laborer landscape [X] Staff SW [X] Treatment Team [X] Discharge UNSURE AT THIS TIME. PATIENT WILL DISCHARGE BACK TO LONG-TERM ONCE STABLE CODING VISIT-PSYCHIATRY Date of Service: November 12, 2024 Billing Provider: CATHY ROSADO APRN Psych Common Visit Codes: [id number] INP/OBS CARE(Low) CATHY ROSADO APRN November 12, 2024 11:13
[2024-11-12 19:00] VITALS: RESP 16; O2SAT 95
[2024-11-12 20:00] VITALS: BP 128/66; PULSE 76; RESP 16; TEMP 97.8; O2SAT 95
[2024-11-13] MEDS ORDERED: DIVA250T8 PO (05:24)
[2024-11-13] MEDS ORDERED: ARIP5TAB53 PO (05:24)
[2024-11-13] MEDS ORDERED: CITA10TA17 PO (05:24)
[2024-11-13 07:00] VITALS: RESP 16; O2SAT 90
[2024-11-13 08:00] VITALS: PULSE 70; RESP 16; TEMP 97.7; O2SAT 90
--- NOTE | 2024-11-13 14:17 | PROGRESS NOTE ---
Progress Note Dictate Providers to CC ~ Central Line/PICC still needed: N\\A Antibiotic Ordered?: No MRSA Education MRSA Education Provided to pt: No Objective Vitals Vital Signs Date Time Temp Pulse Resp B/P (MAP) Pulse Ox O2 Delivery O2 Flow Rate FiO2 11/13/24 10:58 16 11/13/24 08:00 97.7 70 90 Room Air 11/12/24 20:00 128/66 (86) Psychiatrist's Progress Note Date of Service: November 13, 2024 Notes CHART REVIEW Myriam Tristan is a 44-year-old female well known to this ED presents for psychiatric disturbances and suicide ideation. According to [facility] she made an attempt yesterday via a belt and hanging about on a fence wit h the attempt to choke herself. However she was unable to put any tension on on the belt in and did not injure herself. Initially thought that they had a safety plan for her developed however she has had ongoing issues. According to mental health officials, the patient's living situation has become toxic with a toxic landlord which has led to triggering events ultimately attempt on her life or attempting self-harm. ASSESSMENT The patient was interviewed in observation room. The patient was actively sit ting up in wheelchair in room. Patient endorses "I'm doing good." Patient endorses "my friend will pick me up tomorrow for discharge." "I am ready to go see my doggy."The patient endorses no worsening mental health symptoms. Brice HI. Denies AVH. The patient endorses adequate sleep and food intake. The patient is stable no acute distress noted. The patient is cooperative, calm, and engaged during session. Per staff report patient participating in group/unit activities. Per staff report patient was medication compliant. Will continue daily assessment and adjusting treatment as needed. Results Of any Diagn. Testing REVIEW OF LABS White Blood Count 10.9 Red Blood Count 5.07 Hemoglobin 15.8 Hematocrit 44.6 Platelet Count 247 CMP Sodium Level 141 Potassium Level 4.1 Creatinine 0.84 Estimated GFR 74 Glucose Level 98 Calcium Level 9.6 Albumin 4.3 TSH 1.15 ETOH < 10 UTOX NEG UA NEG COVID NEG HCG NEG Appearnace: Other Speech: Other (CIRCUMSTANTIAL) Eye Contact: Normal Motor Activity: Normal Affect: Full Mood: Euthymic Orientation Impairment: None Memory Impairment: None Attention: Normal Hallucinations: None Other: None Suicidality: None Homicidality: None Delusions: None Behavior: Cooperative Insight: Fair Judgment: Fair Treatment SEROQUEL XR 900 MG P.O. Q.H.S. TRAZODONE 50 MG P.O. PRN Q.H.S.-INSOMNIA HYDROXYZINE 50 MG P.O. Q.H.S. PRNANXIETY/AGITATION CELEXA 20MG PO DAILY LAMOTRIGINE 400 MG P.O. Q.H.S. ABILIFY 5 MG Monitoring by Staff, Milieu, Group, and Individual counseling as needed -- According to the [place] Suicide Assessment the above named patient is on Q15 MINUTE CHECKS. VOLUNTARY REVIEW OF Clinical notes [X ] RN notes [X] PCT documentation [X] SW notes Labs [ X] Medications [X] Care trends/care activity [X] Vitals [X] DISCUSSION WITH rubber thread spooler [X] Staff SW [X] Treatment Team [X] Discharge UNSURE AT THIS TIME. PATIENT WILL DISCHARGE BACK TO HALFWAY ONCE STABLE CODING VISIT-PSYCHIATRY Date of Service: November 13, 2024 Billing Provider: CATHY ROSADO APRN Psych Common Visit Codes: [id number] INP/OBS CARE(Low) CATHY ROSADO APRN November 13, 2024 14:17
--- NOTE | 2024-11-13 18:39 | PROGRESS NOTE ---
Daily Progress Note Providers to CC ~ Antibiotic Timeout Antibiotic Ordered?: No Subjective Patient is seen in her room in mental health unit. She mentioned that tomorrow she will be discharged and she was concerned about her discharge medications. She mentioned that she had the primary care doctor but now she has some kind of " bridge appointment " with PCP Objective Vital Signs Date Time Temp Pulse Resp B/P (MAP) Pulse Ox O2 Delivery O2 Flow Rate FiO2 11/13/24 17:07 16 11/13/24 08:00 97.7 70 90 Room Air 11/12/24 20:00 128/66 (86) General-patient not in any acute distress, alert awake , obese, age-appropriate, looks comfortable HEENT-atraumatic normocephalic, neck supple without elevated JVD, no thyromegaly or carotid bruit. No lymphadenopathy bilaterally. Eyes-no icterus or pallor seen in eyes Chest-clear to auscultation bilaterally, breathing nonlabored no tachypnea, no wheezing, no crepitation, no crackles. Heart-S1-S2 normal, regular heart rate no murmur Abdomen bowel sounds positive on auscultation, soft nondistended nontender no guarding, no rigidity Skin no active skin rash Neurology-grossly intact, nonfocal alert awake, cooperated well during physical examination Extremity- no pedal edema able to move all 4 extremities Psychiatry - patient is not confused or agitated Problem\\Assessment\\Plan # Suicidal ideation and attempt # Affective disorder Management as per psychiatric team # Degenerative joint disease Using wheelchair since the past 10 years Pain management: on [place] 10/325 change every 6 hours prn Morbid obesity BMI 52, Nutrition consult # History of SVT ablation many years ago # Arrhythmia # Permanent pacemaker Not taking any medication, lipid panel: Elevated triglycerides 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 Further discharge management as per psychiatric team . Date of Service: November 13, 2024 Billing Provider: VANDANA SIDDIQUI MD Common Visit Codes: [id number] INP/OBS CARE(LOW) VANDANA SIDDIQUI MD November 13, 2024 18:38
[2024-11-13 19:00] VITALS: RESP 18; O2SAT 93
[2024-11-13 20:00] VITALS: BP 138/82; PULSE 70; RESP 18; TEMP 97.7; O2SAT 93
--- NOTE | 2024-11-14 06:31 | DISCHARGE SUMMARY ---
Discharge Summary Providers to CC ~ Discharge Summary Admission Diagnosis: SCHIZOAFFECTIVE DISORDER, DEPRESSIVE TYPE. PTSD. SUICIDAL IDEATION Hospital Course DATE OF ADMISSION: DATE OF DISCHARGE: Discharge Diagnosis\\Comment: SCHIZOAFFECTIVE DISORDER, DEPRESSIVE TYPE. PTSD. SUICIDAL IDEATION Operations\\Procedures: NONE Consultants: MEDICAL TEAM Complications: NONE Condition on DC: Stable 2 or more antipsychotic used: Yes 2/more antipsychotic addressed: Yes Does Patient smoke: No Smoking education given.: No New Medications: Aripiprazole (Aripiprazole) 5 Mg Tablet 5 MG PO HS for 14 Days, #14 TAB Citalopram Hydrobromide (Citalopram HBr) 10 Mg Tablet 20 MG PO DAILY for 14 Days, #14 TAB Divalproex Sodium (Divalproex Sodium Er) 250 Mg Tab.sr.24h 1250 MG PO HS for 14 Days, #70 TAB.SR Continued Medications: Docusate Sodium (Docusate Sodium) 100 Mg Caps 2 CAP PO BID, #60 CAP Hydrocodone Bit/Acetaminophen (Hydrocodon-Acetaminophn 10-325 tablet) 10mg- 325mg Tablet 1 TAB PO TID PRN for 30 Days, #30 TAB Lamotrigine (Lamotrigine ER) 200 Mg Tab.er.24 2 TAB PO BID Ondansetron 8mg ODT (Ondansetron Odt) 8 Mg Tab.rapdis 1 TAB PO Q6H PRN for prn for 3 Days, #12 TAB 0 Refills Quetiapine Fumarate (Seroquel) 400 Mg Tablet 2 TAB PO HS for 30 Days, #30 TAB 0 Refills Zolpidem Tartrate (Ambien) 10 Mg Tablet 1 TAB PO HS for 30 Days, #30 TAB 0 Refills Discontinued Medications: Divalproex Sodium (Divalproex Sodium) 500 Mg Tablet.dr 2 TAB PO HS Discharge Summary: CHART REVIEW Myriam Tristan is a 44-year-old female well known to this ED presents for psychiatric disturbances and suicide ideation. According to [facility] she made an attempt yesterday via a belt and hanging about on a fence with the attempt to choke herself. However she was unable to put any tension on on the belt in and did not injure herself. Initially thought that they had a safety plan for her developed however she has had ongoing issues. According to mental health officials, the patient's living situation has become toxic with a toxic landlord which has led to triggering events ultimately attempt on her life or attempting self-harm. Patient actively seen and examined on day of discharge 11/14/2024, by myself, ANGIE Monterroso. The patient is interviewed in observation room. The patient endorses "Good." Denies SI. Denies HI. Denies AVH. Myriam was able to formulate a safety plan which includes going to the emergency room if symptoms return or worsen. Call [phone] or [phone] for immediate assistance if necessary. During his hospital stay, Myriam receive multidisciplinary treatment she adhered to his medication regimen and has been pleasant and cooperative. She denies any suicidal ideation (SI), homicidal ideation (HI), auditory/visual hallucination (HI). Staff has reported no behavioral issues, and the patient has been sleeping well, adequate food intake, with no mood or behavioral changes noted. The decision to discharge Myriamwas made in consensus with the treatment team, including the social sciences department chair, unit nurse, and silk top hat body maker on duty. The patient was E-scribed a 14-day supply of medication to preferred pharmacy. MENTAL STATUS EXAM APPEARANCE: APPROPRIATELY. DRESSED IN STREET CLOTHING. SPEECH: CIRCUMSTANCE EYE CONTACT: NORMAL AFFECT: CONGRUENT WITH MOOD MOOD: "GOOD" ORIENTATION IMPAIRMENT: NONE MEMORY IMPAIRMENT: NONE ATTENTION: NORMAL HALLUCINATIONS: NONE SUICIDALITY: NONE HOMICIDALITY: NONE DELUSIONS: NONE BEHAVIOR: COOPERATIVE, PLEASANT JUDGMENT: FAIR INSIGHT: FAIR Continue Current Inpatient Psychotropic Regimen @ home Follow-Up with Psychiatric Provider Safety Plan Discussed DISCHARGE CONDITION: Her readiness for discharge is supported by his stable mental status, adherence to treatment, and proactive approach to managing his mental health. Denies SI. Denies HI. Denies A/V/H. The patient has been informed to continue follow-up care to ensure ongoing support and monitoring. Patient discharged to [facility]. *Problems/Diagnosis: (1) Schizoaffective disorder, depressive type Status: Resolved (2) Post traumatic stress disorder (PTSD) (3) Suicidal ideation Status: Acute Total Time Spent on D/C: > 30 Minutes Counseling Services Smoking & Tobacco Cessation: N/A CODING VISIT-PSYCHIATRY Date of Service: November 14, 2024 Billing Provider: CATHY ROSADO DYE ROOM HELPER Psych Common Visit Codes: [id number] DISCH DAY >30min CATHY ROSADO APRN November 14, 2024 06:28
[2024-11-14 07:52] VITALS: BP 107/53; PULSE 70; RESP 16; TEMP 98.2; O2SAT 92
[2024-11-14 11:25] VITALS: RESP 16
== END 2024-11-14 11:45 | disposition home or self-care (01) | DRG 885 ==
LOC: ER 18:47 → ADULT MH 10-25 12:30 → UNDOADMIN 10-25 12:30 → ADULT MH 10-25 14:40
PROVIDERS: ADMIT Psychiatry & Neurology Psychiatry; ATTEND Psychiatry & Neurology Psychiatry
PROC: GZHZZZZ Group Psychotherapy (ICD-10-PCS; principal; 2024-10-26)
PROC: GZ51ZZZ Individual Psychotherapy, Behavioral (ICD-10-PCS; 2024-10-26)
DX: F25.1 Schizoaffective disorder, depressive type (principal); R45.851 Suicidal ideations; Q79.60 Ehlers-Danlos syndrome, unspecified; Z68.43 Body mass index [BMI] 50.0-59.9, adult; Z20.822 Contact with and (suspected) exposure to COVID-19; E11.9 Type 2 diabetes mellitus without complications; F41.9 Anxiety disorder, unspecified; J45.909 Unspecified asthma, uncomplicated; G47.00 Insomnia, unspecified; G40.909 Epilepsy, unspecified, not intractable, without status epilepticus; E66.01 Morbid (severe) obesity due to excess calories; G43.909 Migraine, unspecified, not intractable, without status migrainosus; F31.9 Bipolar disorder, unspecified; E78.1 Pure hyperglyceridemia; F43.10 Post-traumatic stress disorder, unspecified; Z88.6 Allergy status to analgesic agent; Z88.1 Allergy status to other antibiotic agents; Z91.041 Radiographic dye allergy status; Z88.8 Allergy status to other drugs, medicaments and biological substances; Z91.09 Other allergy status, other than to drugs and biological substances; Z95.0 Presence of cardiac pacemaker; Z79.899 Other long term (current) drug therapy
CPT/HCPCS: 36415; 80048; 80053; 80061; 80164; 80305; 80320; 81001; 81025; 83690; 84443; 85007; 85025; 87081; 87811; 93005; 97116; 97161; 97530; 99285; A6449; Q0163; Q0177

== ENCOUNTER 2025-01-12 20:43 | Emergency (ER) | payer MEDICARE, MEDICAID ==
[~2025-01-12] VITALS: Ht 170.2 cm; Wt 159.0 kg
[~2025-01-12 20:43] MED LIST changes: +ARIP5TAB53 PO; +CITA10TA17 PO; -CLON0.1T2 PO; +DIVA250T8 PO; -DIVA500T9 PO; -DULO60CA65 PO; -LIDO700A47 TP; -ONDA-243 PO; +ONDA-245 PO; -PANT-47 PO; -QUET300T91 PO; +QUET400T PO
[2025-01-12 20:45] VITALS: TEMP 98.8
--- NOTE | 2025-01-12 20:52 | Physician Documentation ---
History of Present Illness ~ Chief Complaint: Heat Related Stated Complaint: HEAT EXHAUSTION Time Seen by MD: 20:51 Primary Medical Doctor: Santosh CAMARGO Morbidly obese 44-year-old female is brought to the emergency department per ambulance today. She reports that the air conditioning in her apartment has not been working, and she has been very hot over the last week. Symptoms noted include muscle weakness, muscle pain, headache, nausea. Denies abd pain, dysuria, black/bloody stool, diarrhea/constipation. Medication Reconciliation Allergies: Coded Allergies: amphetamine (Verified Allergy, Severe, 10/24/24) "throat closes up" dextroamphetamine (Verified Allergy, Severe, 10/24/24) "throat closes up" lisdexamfetamine (Verified Allergy, Severe, 10/24/24) "throat close up" venlafaxine (Verified Allergy, Severe, ANAPHYLAXSIS, 10/24/24) sertraline (Verified Allergy, Intermediate, 10/28/24) Iodinated Contrast Media (Verified Allergy, Unknown, 10/24/24) Penicillins (Verified Allergy, Unknown, 10/24/24) baclofen (Verified Allergy, Unknown, 06/03/24) cyclobenzaprine (Verified Allergy, Unknown, 06/03/24) gabapentin (Verified Allergy, Unknown, 10/24/24) haloperidol (Unverified Allergy, Unknown, 10/24/24) hydromorphone (Verified Allergy, Unknown, GETS SPOTS AND TONGUE DOES A WEIRD CLAPPING THING, 10/24/24) levetiracetam (Unverified Allergy, Unknown, HALLUCINATIONS, 10/24/24) mirtazapine (Verified Allergy, Unknown, 10/24/24) ziprasidone (Verified Allergy, Unknown, 10/24/24) diazepam (Verified Adverse Reaction, Unknown, 10/24/24) midazolam (Verified Adverse Reaction, Unknown, OPPOSITE EFFECT, 10/24/24) topiramate (Verified Adverse Reaction, Unknown, 10/24/24) Uncoded Allergies: "LIQUID STITCHES" (Allergy, Unknown, 01/02/22) Scheduled Aripiprazole (Aripiprazole), 5 MG PO HS Citalopram Hydrobromide (Citalopram HBr), 20 MG PO DAILY Divalproex Sodium (Divalproex Sodium Er), 1,250 MG PO HS Docusate Sodium (Docusate Sodium), 2 CAP PO BID, (Reported) Hydrocodone Bit/Acetaminophen (Hydrocodon-Acetaminophn 10-325 tablet), 1 TAB PO TID PRN, (Reported) Lamotrigine (Lamotrigine ER), 2 TAB PO BID, (Reported) Quetiapine Fumarate (Seroquel), 2 TAB PO HS, (Reported) Zolpidem Tartrate (Ambien), 1 TAB PO HS, (Reported) Scheduled PRN Ondansetron 8mg ODT (Ondansetron Odt), 1 TAB PO Q6H PRN for prn, (Reported) Past Medical History Past Medical History: CVA/TIA/Stroke, Headache, Migraine, Seizures, Arrhythmia, Asthma, *GI/HEPATOBILIARY*, Gastritis, Hepatitis C, *RENAL/*, Kidney Stones, *MUSCULOSKELETAL*, Chronic Pain, Osteoarthritis, MRSA Abscess, *PSYCH*, Anxiety, Bipolar, Depression, Schizophrenia Past Surgical History: orthopedic surgeries, pacemaker, other Other Past Surgical History: Ovarian Cyst Removal Patient History: Diabetes mellitus FATHER FH: Parkinson's disease FAMILY/OTHER (Sister one year ago.), Not a twin FH: arthritis MOTHER FH: dementia FATHER FH: suicide FAMILY/OTHER (Sister one year ago.), Not a twin FHx: mental illness FATHER MOTHER Alcohol Use: None Drug Use: none Lives with: Family Lives In: Home Occupation: unemployed Review of Systems ROS As stated above in the HPI, otherwise all systems are reviewed and negative. Physical Exam Vital Signs: Heart Rate: 70, Respiratory Rate: 16, BP: 151/75, Pulse Oximetry: 96, Weight: 159.000 Oxygen Flow Rate: 0 Physical Exam General: Alert, no apparent distress. HEENT: PERRL, EOMI, no injection, moist mucous membranes. Neck: Full range of motion. Respiratory: Lungs clear, no respiratory distress. Chest: No accessory muscle use. Cardiovascular: Regular rate and rhythm, no murmurs. Gastrointestinal: Soft, nontender, nondistended. Bowels sounds present. Extremities: Normal range of motion, no deformity. Neurologic: Oriented x4. Psychiatric: Normal mood and affect. Skin: Normal color, warm and dry. No edema, no ecchymosis. Progress Results/Orders Results/Orders Orders - CALISTA VINSON [employer] Drug Screen, Urine (01/12/25 20:52) Hcg, Ur Ql (01/12/25 20:52) Normal Saline 1000ml (0.9% Sodium Chlori (01/12/25 21:45) Completed Orders - CALISTA VINSON [employer] Liver Panel (01/12/25 20:52) CK (01/12/25 20:52) Normal Saline 1000ml (0.9% Sodium Chlori (01/12/25 20:55) Ethanol (01/12/25 20:52) Prochlorperazine Inj (Compazine Inj) (01/12/25 21:40) Diphenhydramine Inj (Benadryl Inj.) (01/12/25 21:40) Acetaminophen 1,000mg/100ml Iv (Ofirmev (01/12/25 21:40) Medications Received in ER Medications (Trade) Dose Ordered Sig/Jada Route PRN Reason Start Time Stop Time Status Last Admin Dose Admin Sodium Chloride 1,000 ml @ 1,000 mls/hr ONCE ONCE IV 01/12/25 20:55 01/12/25 21:54 DC 01/12/25 21:34 1,000 MLS/HR Vital Signs 01/12/25 01/12/25 20:45 20:54 Temp 98.8 Pulse 70 Resp 16 B/P (MAP) 151/75 Pulse Ox 96 O2 Flow Rate 0 Laboratory Tests Test 01/12/25 21:01 White Blood Count 8.7 Red Blood Count 4.85 Hemoglobin 15.2 Hematocrit 43.5 Mean Corpuscular Volume 89.6 Mean Corpuscular Hemoglobin 31.4 H Mean Corpuscular Hemoglobin Concent 35.0 Red Cell Distribution Width 13.4 Platelet Count 242 Mean Platelet Volume 8.2 Neutrophils (%) (Auto) 53.0 Lymphocytes (%) (Auto) 34.1 Monocytes (%) (Auto) 9.5 Eosinophils (%) (Auto) 3.0 Basophils (%) (Auto) 0.4 Neutrophils # (Auto) 4.6 Lymphocytes # (Auto) 3.0 Monocytes # (Auto) 0.8 Eosinophils # (Auto) 0.3 Basophils # (Auto) 0.0 CBC Comment Basophilic Stippling Sodium Level 140 Potassium Level 4.1 Chloride Level 102 Carbon Dioxide Level 30.7 Anion Gap 7 L Blood Urea Nitrogen 13 Creatinine 1.25 H Estimated GFR/1.73 m2 47 BUN/Creatinine Ratio 10.4 Glucose Level 104 Calcium Level 9.3 Total Bilirubin 0.3 Direct Bilirubin 0.1 Aspartate Amino Transf (AST/SGOT) 27 Alanine Aminotransferase (ALT/SGPT) 48 Alkaline Phosphatase 83 Total Creatine Kinase 87 Troponin I High Sensitivity 6 Pro-B-Type Natriuretic Peptide < 30 Total Protein 7.7 Albumin 3.9 Globulin 3.8 Albumin/Globulin Ratio 1.0 L Chemistry Comments Ethyl Alcohol Level < 10 EKG/XRAY/CT/US/VASC/MRI EKG : Additional Comment 2048: EKG interpreted to show atrial paced rhythm rate of 70. No ectopy. No ST segment elevation. QTC 446 ms. Chest X-Ray : Additional Comments [address] [address] DIAGNOSTIC RADIOLOGY Patient: JULIA DALEY Medical Record: [id number] [place] : 1980, Age: 44 Sex: Female Location: ER Patient Status: [facility] ER Service Date/Time: 01/12/252125 Ordering Physician: BERNADETTE MARQUES MD Exam: CHEST,SINGLE VIEW CHEST RADIOGRAPH Indication: CP Technique: Single frontal view of the chest was obtained COMPARISON: CHEST,SINGLE VIEW on DOS: 12/13/22, CHEST,SINGLE VIEW on DOS: 04/25/22, CHEST,SINGLE VIEW on DOS: 04/17/22 FINDINGS: Lines and Tubes: Left pacemaker/AICD with two cardiac leads Lungs: Clear Pleura: No effusion. No pneumothorax. Cardiomediastinal contours: Unremarkable Bones: Unremarkable IMPRESSION: 1. No acute disease. Electronically Signed by:GARRY REYNOSO MD Date & Time: 01/12/252135 Dictated by: GARRY REYNOSO MD Dictation date and time: 01/12/252121 Primary Care Provider: NO PRIMARY CARE PROVIDER cc: BERNADETTE MARQUES MD ~ Medical Decision Making Differential Dx:Considerations: Include: Cerebral edema, Dehydration, Electrolyte imbalance, Encephalopathy, Heat cramps, Heat exhaustion, Heat stoke, Heat syncope, Heat tetany, Hypotension, Prickly heat, Renal failure, Sepsis Differential Diagnosis Patient with extensive hx including presence of pacemaker and previous stroke. She presents with concerns for weakness, migraine, muscle pain. Labs show mild OLIVIA with elevated Creatinine of 1.25 with eGFR of 47 when compared to her previous values about a yr ago showing creatinine of 0.93 and eGFR of 66. Otherwise, she is found to have negative troponin, negative BNP, and normal CPK at 78. Medicated for headache with prochlorperazine and diphenhydramine along with two liters NS as a bolus IV. Patient was considered appropriate for discharge after the above medications. Case discussed with EDMD Marques who agrees with plan of care. Departure Time of Disposition: 22:01 Disposition: HOME / SELF CARE / HOMELESS Impression: Primary Impression: OLIVIA (acute kidney injury) Additional Impression: Heat exhaustion Qualified Codes: T67.5XXA - Heat exhaustion, unspecified, initial encounter Condition: Stable Discharge Instructions: Acute Kidney Injury, Adult, Heat Illness Additional Instructions: Your labs were normal except for evidence of dehydration with mild stress on the kidneys. You were hydrated with IV fluids and treated for your headache. Please take care to stay hydrated at home and do your best to stay cool: dress lightly, run a fan, and spend some time during the heat of the day in an air conditioned environment such as the library or mall if possible. Return if worse. Otherwise, see your primary care provider within a week and ask that your kidney labs be rechecked to ensure resolution of your mild kidney stress noted today. Referrals: NO PRIMARY CARE PROVIDER (PCP) Education Educated: Patient Educated regarding: diagnosis, treatment, prognosis, need for follow up Signature Scribe Signature: x Attestation: The note accurately reflects work and decisions made by me.Calista Staley NP 01/12/25 20:58 CALISTA VINSON NP Jan 12, 2025 20:52
[2025-01-12 21:16] LABS: MEAN PLATELET VOLUME 8.2 FL (7.4-10.4); RED CELL DISTRIBUTION WIDTH 13.4 % (11.5-14.5)
[2025-01-12 21:23] LABS: CREATININE 1.25 MG/DL (0.40-0.90); TOTAL CARBON DIOXIDE 30.7 MMOL/L (24-32); eCRCL 57 ML/MIN; eGFR 47 ML/MIN
[2025-01-12 21:30] LABS: PRO BRAIN NATRIURETIC PEPTIDE < 30 PG/ML (0-125)
[2025-01-12 21:34] LABS: ETHANOL < 10 MG/DL (<10)
[2025-01-12] MEDS: normal saline 1000ml 1,000 ML IV ONE ×2 (21:34→22:11)
--- NOTE | 2025-01-12 21:39 | RADIOLOGY REPORT ---
CHEST RADIOGRAPH Indication: CP Technique: Single frontal view of the chest was obtained COMPARISON: CHEST,SINGLE VIEW on DOS: 12/13/22, CHEST,SINGLE VIEW on DOS: 04/25/22, CHEST,SINGLE VIEW on DOS: 04/17/22 FINDINGS: Lines and Tubes: Left pacemaker/AICD with two cardiac leads Lungs: Clear Pleura: No effusion. No pneumothorax. Cardiomediastinal contours: Unremarkable Bones: Unremarkable IMPRESSION: 1. No acute disease.
[2025-01-12 22:00] VITALS: BP 146/98; PULSE 89; RESP 18; O2SAT 96
[2025-01-12] MEDS: acetaminophen 1,000mg/100ml IV 100 ML IV ONE (22:12)
[2025-01-12 22:14] LABS: EOSINOPHILS % (MANUAL) 2.0 % (0-6); LYMPHOCYTES % (MANUAL) 33.0 % (21-51); MONOCYTES % (MANUAL) 9.0 % (2-12); NEUTROPHILS % (MANUAL) 56.0 % (42-75)
[2025-01-12 22:16] LABS: PLATELET ESTIMATE NORMAL
--- NOTE | 2025-01-13 05:20 | ELECTROCARDIOGRAPH REPORT ---
[facility] Test Date: 2025-01-12 Test Time: 20:49:11 Pat Name: JULIA DALEY Department: EMERGENCY ROOM Room: Gender: F Director Of Restaurant: ANGELICA : 1980 Requested By: BERNADETTE ANDREWS Order Number: [id number] Reading MD: Measurements Intervals [place] Rate: 70 P: 0 AL: 192 QRS: 18 QRSD: 109 T: 59 QT: 413 QTc: 446 Interpretive Statements Atrial-paced rhythm Low voltage, precordial leads Please click the below link to view image of tracing.
== END 2025-01-12 23:28 | disposition home or self-care (01) ==
LOC: ER 20:43
DX: N17.9 Acute kidney failure, unspecified (principal); T67.5XXA Heat exhaustion, unspecified, initial encounter; R06.02 Shortness of breath; E11.9 Type 2 diabetes mellitus without complications; F20.9 Schizophrenia, unspecified; F31.9 Bipolar disorder, unspecified; F41.9 Anxiety disorder, unspecified; J45.909 Unspecified asthma, uncomplicated; G43.909 Migraine, unspecified, not intractable, without status migrainosus; M19.90 Unspecified osteoarthritis, unspecified site; Z86.73 Personal history of transient ischemic attack (TIA), and cerebral infarction without residual deficits; Z88.0 Allergy status to penicillin; Z88.5 Allergy status to narcotic agent; Z88.8 Allergy status to other drugs, medicaments and biological substances; Z91.041 Radiographic dye allergy status; Z95.0 Presence of cardiac pacemaker; Z98.890 Other specified postprocedural states; X58.XXXA Exposure to other specified factors, initial encounter; Y93.89 Activity, other specified; Y92.89 Other specified places as the place of occurrence of the external cause; Y99.8 Other external cause status
CPT/HCPCS: 36415; 71045; 80048; 80076; 82550; 83880; 84484; 85025; 93005; 96361; 96374; 96375; 99285; G0480; J0131; J1200; J7030; 80320; 85007

== ENCOUNTER 2025-01-13 19:25 | Emergency (ER) | payer MEDICARE, MEDICAID ==
[~2025-01-13] VITALS: Ht 170.2 cm; Wt 153.0 kg
[2025-01-13 19:45] VITALS: TEMP 98.5
--- NOTE | 2025-01-13 19:50 | ELECTROCARDIOGRAPH REPORT ---
[facility] Test Date: 2025-01-13 Test Time: 19:29:28 Pat Name: JULIA DALEY Department: EMERGENCY ROOM Room: Gender: F Voicer: JASON : 1980 Requested By: BERNADETTE ANDREWS Order Number: [id number] Reading MD: Dr. Kodak Rosa Measurements Intervals [place] Rate: 72 P: 0 NE: 167 QRS: -60 QRSD: 114 T: 46 QT: 440 QTc: 482 Interpretive Statements Atrial-paced complexes LAD, consider left anterior fascicular block Electronically Signed On 01-21-2025 20:06:[address] Kodak Rosa Please click the below link to view image of tracing.
[2025-01-13 20:19] LABS: MEAN PLATELET VOLUME 8.3 FL (7.4-10.4); RED CELL DISTRIBUTION WIDTH 13.2 % (11.5-14.5)
[2025-01-13 20:35] LABS: CREATININE 0.91 MG/DL (0.40-0.90); TOTAL CARBON DIOXIDE 28.4 MMOL/L (24-32); eCRCL 78 ML/MIN; eGFR 68 ML/MIN
[2025-01-13] MEDS: normal saline 1000ml 1,000 ML IV STA ×2 (21:34→22:56)
[2025-01-13] MEDS: ketorolac trometh 30MG/ML vial 30 MG/ML VIAL IV STA (21:35)
--- NOTE | 2025-01-13 22:37 | Physician Documentation ---
History of Present Illness ~ Chief Complaint: Heat Related Stated Complaint: GENERAL ILLNESS Time Seen by MD: 19:59 Primary Medical Doctor: Santosh Anderson Mode of Arrival: POV, EMS HPI Patient is seen today with complaints of heat exhaustion. Patient states she was seen here yesterday with similar complaints and was given fluids and discharged in his feeling much better until the heat of the day got to her again today and she states she has a headache and just does not feel well and was feeling some nausea and went to eat something but felt nauseous and could not. Patient denies any chest pain or shortness of breath or abdominal pain or diarrhea. She has no other concern or complaint at this time. Medication Reconciliation Allergies: Coded Allergies: amphetamine (Verified Allergy, Severe, 10/24/24) "throat closes up" dextroamphetamine (Verified Allergy, Severe, 10/24/24) "throat closes up" lisdexamfetamine (Verified Allergy, Severe, 10/24/24) "throat close up" venlafaxine (Verified Allergy, Severe, ANAPHYLAXSIS, 10/24/24) sertraline (Verified Allergy, Intermediate, 10/28/24) Iodinated Contrast Media (Verified Allergy, Unknown, 10/24/24) Penicillins (Verified Allergy, Unknown, 10/24/24) baclofen (Verified Allergy, Unknown, 06/03/24) cyclobenzaprine (Verified Allergy, Unknown, 06/03/24) gabapentin (Verified Allergy, Unknown, 10/24/24) haloperidol (Unverified Allergy, Unknown, 10/24/24) hydromorphone (Verified Allergy, Unknown, GETS SPOTS AND TONGUE DOES A WEIRD CLAPPING THING, 10/24/24) levetiracetam (Unverified Allergy, Unknown, HALLUCINATIONS, 10/24/24) mirtazapine (Verified Allergy, Unknown, 10/24/24) ziprasidone (Verified Allergy, Unknown, 10/24/24) diazepam (Verified Adverse Reaction, Unknown, 10/24/24) midazolam (Verified Adverse Reaction, Unknown, OPPOSITE EFFECT, 10/24/24) prochlorperazine (Verified Adverse Reaction, Unknown, anxiety, 01/12/25) topiramate (Verified Adverse Reaction, Unknown, 10/24/24) Uncoded Allergies: "LIQUID STITCHES" (Allergy, Unknown, 01/02/22) Scheduled Aripiprazole (Aripiprazole), 5 MG PO HS Citalopram Hydrobromide (Citalopram HBr), 20 MG PO DAILY Divalproex Sodium (Divalproex Sodium Er), 1,250 MG PO HS Docusate Sodium (Docusate Sodium), 2 CAP PO BID, (Reported) Hydrocodone Bit/Acetaminophen (Hydrocodon-Acetaminophn 10-325 tablet), 1 TAB PO TID PRN, (Reported) Lamotrigine (Lamotrigine ER), 2 TAB PO BID, (Reported) Quetiapine Fumarate (Seroquel), 2 TAB PO HS, (Reported) Zolpidem Tartrate (Ambien), 1 TAB PO HS, (Reported) Scheduled PRN Ondansetron 8mg ODT (Ondansetron Odt), 1 TAB PO Q6H PRN for prn, (Reported) Past Medical History Past Medical History: CVA/TIA/Stroke, Headache, Migraine, Seizures, Arrhythmia, Asthma, *GI/HEPATOBILIARY*, Gastritis, Hepatitis C, *RENAL/*, Kidney Stones, *MUSCULOSKELETAL*, Chronic Pain, Osteoarthritis, MRSA Abscess, *PSYCH*, Anxiety, Bipolar, Depression, Schizophrenia Past Surgical History: orthopedic surgeries, pacemaker, other Other Past Surgical History: Ovarian Cyst Removal Patient History: Diabetes mellitus FATHER FH: Parkinson's disease FAMILY/OTHER (Sister one year ago.), Not a twin FH: arthritis MOTHER FH: dementia FATHER FH: suicide FAMILY/OTHER (Sister one year ago.), Not a twin FHx: mental illness FATHER MOTHER Alcohol Use: None Drug Use: none Lives with: Family Lives In: Home Occupation: unemployed Review of Systems Constitutional: Denies: chills, fever, weakness Eyes: Denies: pain, blurred vision ENT: Denies: ear pain, nose pain, throat pain, mouth pain Respiratory: Denies: cough, shortness of breath Cardiovascular: Denies: chest pain, palpitations Gastrointestinal: Denies: abdominal pain, nausea, vomiting Genitourinary: Denies: burning, dysuria Female Genitalia: Denies: vaginal discharge, pelvic pain Neurological: Denies: headache, dizziness Musculoskeletal: Denies: pain, swelling Integumentary: Denies: rash, lesions Allergic/Immunologic: Denies: hives, itching Hematologic/Lymphatic: Denies: no symptoms reported Psychiatric: Denies: depression, anxiety Physical Exam Vital Signs: Temperature: 98.5, Source: Oral, Heart Rate: 70, Respiratory Rate: 19, BP: 137/67, Pulse Oximetry: 100, Weight: 153.000 Physical Exam General: Awake and Alert, no acute distress. HEENT: Conjunctiva pink, Sclera clear, Mucus Membranes moist. Neck: Supple without masses and tenderness. Resp: Unlabored. Lungs clear to auscultation bilaterally. Heart: Regular Rate and rhythm, normal S1 and S2 without murmur, rub or gallop. Abdomen: Soft and non tender no organomegaly Extremities: No cyanosis,clubbing or edema. Skin: Warm and Dry. Progress Results/Orders Results/Orders Orders - ZAIRE RAMIREZ PAC Saline Lock (01/13/25 ) Completed Orders - ZAIRE RAMIREZ PAC Normal Saline 1000ml (0.9% Sodium Chlori (01/13/25 21:19) Ketorolac Trometh 30mg/Ml Vial (Toradol (01/13/25 21:19) Normal Saline 1000ml (0.9% Sodium Chlori (01/13/25 21:19) Medications Received in ER Medications (Trade) Dose Ordered Sig/Jada Route PRN Reason Start Time Stop Time Status Last Admin Dose Admin Sodium Chloride 1,000 ml @ 1,000 mls/hr ONCE STAT IV 01/13/25 21:19 01/13/25 22:18 DC 01/13/25 21:34 1,000 MLS/HR (Toradol inj. 30mg/ml) 30 mg ONCE STAT IV 01/13/25 21:19 01/13/25 21:23 DC 01/13/25 21:35 30 MG Vital Signs 01/13/25 01/13/25 19:45 19:55 Temp 98.5 Pulse 97 70 Resp 19 B/P (MAP) 137/67 (90) Pulse Ox 97 100 Laboratory Tests Test 01/13/25 20:11 White Blood Count 8.8 Red Blood Count 4.62 Hemoglobin 14.2 Hematocrit 41.4 Mean Corpuscular Volume 89.6 Mean Corpuscular Hemoglobin 30.6 Mean Corpuscular Hemoglobin Concent 34.2 Red Cell Distribution Width 13.2 Platelet Count 229 Mean Platelet Volume 8.3 Neutrophils (%) (Auto) 59.2 Lymphocytes (%) (Auto) 27.3 Monocytes (%) (Auto) 9.8 Eosinophils (%) (Auto) 3.2 Basophils (%) (Auto) 0.5 Neutrophils # (Auto) 5.2 Lymphocytes # (Auto) 2.4 Monocytes # (Auto) 0.9 Eosinophils # (Auto) 0.3 Basophils # (Auto) 0.0 CBC Comment Sodium Level 137 Potassium Level 4.3 Chloride Level 104 Carbon Dioxide Level 28.4 Anion Gap 5 L Blood Urea Nitrogen 11 Creatinine 0.91 H Estimated GFR/1.73 m2 68 BUN/Creatinine Ratio 12.1 Glucose Level 98 Calcium Level 9.1 Total Bilirubin 0.3 Aspartate Amino Transf (AST/SGOT) 23 Alanine Aminotransferase (ALT/SGPT) 44 Alkaline Phosphatase 68 Total Protein 6.9 Albumin 3.5 Globulin 3.4 Albumin/Globulin Ratio 1.0 L Chemistry Comments Medical Decision Making Findings Patient is seen today with complaints of heat exhaustion. Patient states she was seen here yesterday with similar complaints and was given fluids and discharged in his feeling much better until the heat of the day got to her again today and she states she has a headache and just does not feel well and was feeling some nausea and went to eat something but felt nauseous and could not. Patient denies any chest pain or shortness of breath or abdominal pain or diarrhea. She has no other concern or complaint at this time. Patient's vital signs are very stable and blood work was very unremarkable. Patient was given 2 L of normal saline as well as Toradol 30 mg IV and acetaminophen a 1000 mg IV and Compazine 10 mg IV and Benadryl 50 mg IV. Patient was feeling better after these medications and patient was discharged home. Patient will follow up with primary care in 2-5 days if no better as needed sooner. Return to ED with any worsening, concerning or changing symptoms. Patient strongly advised to stay cool using fans and Mister at home. Departure Disposition: 01 HOME / SELF CARE / HOMELESS Impression: Primary Impression: Heat exhaustion Qualified Codes: T67.5XXD - Heat exhaustion, unspecified, subsequent encounter Condition: Improved Discharge Instructions: Heat Illness Additional Instructions: Patient's vital signs are very stable and blood work was very unremarkable. Patient was given 2 L of normal saline as well as Toradol 30 mg IV and acetaminophen a 1000 mg IV and Compazine 10 mg IV and Benadryl 50 mg IV. Patient was feeling better after these medications and patient was discharged home. Patient will follow up with primary care in 2-5 days if no better as needed sooner. Return to ED with any worsening, concerning or changing symptoms. Patient strongly advised to stay cool using fans and Mister at home. Referrals: NO PRIMARY CARE PROVIDER (PCP) Signature Scribe Signature: No scribe Attestation: No scribe ZAIRE RAMIREZ PAC Jan 13, 2025 22:37
[2025-01-13] MEDS: acetaminophen 1,000mg/100ml IV 100 ML IV STA (22:50)
[2025-01-13 23:22] VITALS: BP 151/80; PULSE 70; RESP 16; O2SAT 98
== END 2025-01-14 00:20 | disposition home or self-care (01) ==
LOC: ER 19:25
DX: T67.5XXD Heat exhaustion, unspecified, subsequent encounter (principal); R51.9 Headache, unspecified; E11.9 Type 2 diabetes mellitus without complications; F20.9 Schizophrenia, unspecified; F31.9 Bipolar disorder, unspecified; J45.909 Unspecified asthma, uncomplicated; M19.90 Unspecified osteoarthritis, unspecified site; F41.9 Anxiety disorder, unspecified; Z86.73 Personal history of transient ischemic attack (TIA), and cerebral infarction without residual deficits; Z88.0 Allergy status to penicillin; Z88.5 Allergy status to narcotic agent; Z88.8 Allergy status to other drugs, medicaments and biological substances; Z91.041 Radiographic dye allergy status; Z95.0 Presence of cardiac pacemaker; Z98.890 Other specified postprocedural states; X58.XXXD Exposure to other specified factors, subsequent encounter
CPT/HCPCS: 80053; 85025; 93005; 96361; 96374; 96375; 99284; J0131; J1200; J1885; J7030